=== PATIENT | female | born 1960 | race Caucasian/White ===

== ENCOUNTER 2017-04-18 21:43 | Inpatient (IN) | payer OTHER ==
[~2017-04-18] VITALS: Ht 157.5 cm; Wt 72.7 kg
[~2017-04-18 21:43] MED LIST: AMOX500C2 PO; ASPI325T32 PO; CALC-656 PO; CALC-80 PO; CYAN50003 PO; CYCL10TA9 PO; DOXY25SU3 PO; DOXY50CA PO; ERYT500T8 PO; ESTR1TAB14 PO; MULT-963 PO; [UNRECOGNIZED DRUG - REMARK]
--- OUTSIDE RECORDS SUMMARY | 2017-04-18 21:52 | XMS REPORT | Continuity of Care Document ---
Author Author [facility] Organization [facility] Address Unknown Phone Unavailable Allergies Active Description Code Type Severity Reaction Onset Reported/Identified Relationship to Patient Clinical Status Yes No Known Drug Allergies [id number] Drug Allergy Unknown N/A 08/06/2010 Medications There is no data. Problems Date Dx Coded Attending Type Code Diagnosis Diagnosed By 03/18/1058 AUDI GAY DO Ot M25.512 03/18/1444 AI BOOTH APRN Ot M25.512 08/06/2010 Ot 461.9 ACUTE SINUSITIS NOS 08/06/2010 Ot 784.0 HEADACHE 07/27/2011 Ot V16.0 FAMILY HX-GI MALIGNANCY 07/27/2011 Ot V76.51 SCREEN MAL NEOP-COLON 06/01/2013 YANI RODRIGUEZ, CHELITA R Ot 577.0 ACUTE PANCREATITIS 07/27/2013 YANI RODRIGUEZ, CHELITA R Ot 577.0 ACUTE PANCREATITIS 07/27/2013 YANI RODRIGUEZ, CHELITA R Ot 599.0 URIN TRACT INFECTION NOS 09/20/2013 GREG RODRIGUEZ FACMarisel, PANKAJ FACP CCDS Ot 577.0 ACUTE PANCREATITIS 03/05/2014 Ot 611.72 03/05/2014 Ot 733.90 03/05/2014 Ot V76.12 03/05/2014 Ot 610.0 03/05/2014 Ot 793.80 03/05/2014 Ot 610.0 03/05/2014 Ot V72.84 03/05/2014 Ot V76.12 03/05/2014 YANI RODRIGUEZ, CHELITA R Ot 577.0 03/05/2014 GREG RODRIGUEZ FACC, PANKAJ FACP CCDS Ot 577.0 03/05/2014 GREG RODRIGUEZ FACC, ALI FACP CCDS Ot 785.1 03/05/2014 JOHN BAKER DO Ot 793.89 03/05/2014 JOHN BAKER DO Ot V76.12 03/05/2014 JOHN BAKER DO Ot 793.80 03/05/2014 Ot 577.0 03/05/2014 CHELITA LOMELI MD Ot 786.2 04/02/2014 CHELITA LOMELI MD R Ot 462 04/02/2014 CHELITA LOMELI MD R Ot 466.0 05/17/2014 CHELITA LOMELI MD Ot 719.41 12/08/2014 CHELITA LOMELI MD Ot 401.9 HYPERTENSION NOS 12/08/2014 CHELITA LOMELI MD R Ot 414.01 CORONARY ATHEROSCLEROSIS OF [place] CORON 12/08/2014 CHELITA LOMELI MD Ot 427.31 ATRIAL FIBRILLATION 12/08/2014 CHELITA LMOELI MD Ot V17.3 FAM HX-[place]HE[place] HEART DIS 01/02/2015 JUNIE GOVEA MD Ot 401.9 HYPERTENSION NOS 01/02/2015 JUNIE GOVEA MD Ot 414.00 CORON ATHEROSCLER NOS TYPE VESSEL, NATIV 01/02/2015 JUNIE GOVEA MD Ot 427.31 ATRIAL FIBRILLATION 01/02/2015 JUNIE GOVEA MD Ot 785.1 PALPITATIONS 01/02/2015 JUNIE GOVEA MD Ot 786.50 CHEST PAIN NOS 01/02/2015 JUNIE GOVEA MD Ot I10 ESSENTIAL (PRIMARY) HYPERTENSION 01/02/2015 JUNIE GOVEA MD Ot I25.10 ATHSCL HEART DISEASE OF [place] CORONARY 01/02/2015 JUNIE GOVAE MD Ot I48.0 PAROXYSMAL ATRIAL FIBRILLATION 01/02/2015 JUNIE GOVEA MD Ot R00.2 PALPITATIONS 01/02/2015 JUNIE GOVEA MD Ot R07.9 CHEST PAIN, UNSPECIFIED 01/02/2015 JUNIE GOVEA MD Ot V58.69 OTH MED,LT,CURRENT USE 01/02/2015 JUNIE GOVEA MD Ot Z79.899 OTHER SENIOR LIVING (CURRENT) DRUG THERAPY 02/01/2015 Ot 611.72 02/01/2015 Ot 733.90 02/01/2015 Ot V76.12 02/01/2015 Ot 610.0 02/01/2015 Ot 793.80 02/01/2015 Ot 610.0 02/01/2015 Ot V72.84 02/01/2015 Ot V76.12 02/01/2015 YANI RODRIGUEZ, CHELITA R Ot 577.0 02/01/2015 GREG RODRIGUEZ FAC, ALI FACP CCDS Ot 577.0 02/01/2015 GREG RODRIGUEZ FAC, ALI FACP CCDS Ot 785.1 02/01/2015 BAKER DOJOHN Ot 793.89 02/01/2015 BAKER DOJOHN C Ot V76.12 02/01/2015 BAKER DOCHRITSOPHEA C Ot 793.80 02/01/2015 Ot 577.0 02/01/2015 YANI RODRIGUEZ, CHELITA R Ot 786.2 02/01/2015 YANI RODRIGUEZ, CHELITA R Ot 462 02/01/2015 YANI RODRIGUEZ, CHELITA R Ot 466.0 02/01/2015 YANI RODRIGUEZ, CHELITA R Ot 719.41 03/01/2015 DEIDRA DO, AUDI Rubio Ot M25.512 03/28/2015 DEIDRA DO, AUDI F Ot M25.512 PAIN IN LEFT SHOULDER 04/22/2015 DEIDRA DO, AUDI F Ot M25.512 04/26/2015 Ot 611.72 04/26/2015 Ot 733.90 04/26/2015 Ot V76.12 04/26/2015 Ot 610.0 04/26/2015 Ot 793.80 04/26/2015 Ot 610.0 04/26/2015 Ot V72.84 04/26/2015 Ot V76.12 04/26/2015 YANI RODRIGUEZ, CHELITA R Ot 577.0 04/26/2015 GREG RODRIGUEZ [facility], ALI FACP CCDS Ot 577.0 04/26/2015 GREG RODRIGUEZ [facility], ALI FACP CCDS Ot 785.1 04/26/2015 BAKER DOCHRISTOPHEA C Ot 793.89 04/26/2015 BAKER CHRISTOPHE CESPEDESA C Ot V76.12 04/26/2015 BAKER DOCHRISTOPHEA C Ot 793.80 04/26/2015 Ot 577.0 04/26/2015 YANI RODRIGUEZ, CHELITA R Ot 786.2 04/26/2015 YANI RODRIGUEZ, CHELITA R Ot 462 04/26/2015 YANI RODRIGUEZ, CHELITA R Ot 466.0 04/26/2015 YANI RODRIGUEZ, CHELITA R Ot 719.41 04/26/2015 DEIDRA AUDI CESPEDES Ot M25.512 06/21/2015 AI BOOTH APRN Ot M25.512 PAIN IN LEFT SHOULDER 07/24/2015 Ot 611.72 07/24/2015 Ot 733.90 07/24/2015 Ot V76.12 07/24/2015 Ot 610.0 07/24/2015 Ot 793.80 07/24/2015 Ot 610.0 07/24/2015 Ot V72.84 07/24/2015 Ot V76.12 07/24/2015 YANI RODRIGUEZ, CHELITA R Ot 577.0 07/24/2015 GREG RODRIGUEZ FAC, ALI FACP CCDS Ot 577.0 07/24/2015 GREG RODRIGUEZ FAC, ALI FACP CCDS Ot 785.1 07/24/2015 JOHN BAKER DO C Ot 793.89 07/24/2015 JOHN BAKRE DO C Ot V76.12 07/24/2015 BAKERCHRISTOPHE Turner DOA C Ot 793.80 07/24/2015 Ot 577.0 07/24/2015 YANI RODRIGUEZ, CHELITA R Ot 786.2 07/24/2015 YANI RODRIGUEZ, CHELITA R Ot 462 07/24/2015 YANI RODRIGUEZ, CHELITA R Ot 466.0 07/24/2015 YANI RODRIGUEZ, CHELITA R Ot 719.41 07/24/2015 DEIDRA DO, AUDI Rubio Ot M25.512 08/12/2015 Ot 611.72 LUMP OR MASS IN BREAST 08/12/2015 Ot 733.90 BONE CARTILAGE DIS NOS 08/12/2015 Ot V76.12 OTH SCREEN MAMMO-MALIGN NEOPLASM OF [place] 08/12/2015 Ot 610.0 SOLITARY CYST OF BREAST 08/12/2015 Ot 793.80 UNSPEC ABNORMAL MAMMOGRAM 08/12/2015 Ot 610.0 SOLITARY CYST OF BREAST 08/12/2015 Ot V72.84 EXAM PRE- OPERATIVE NOS 08/12/2015 Ot V76.12 OTH SCREEN MAMMO-MALIGN NEOPLASM OF [place] 08/12/2015 YANI RODRIGUEZ, CHELITA R Ot 577.0 ACUTE PANCREATITIS 08/12/2015 GREG RODRIGUEZ FAC, ALI FACP CCDS Ot 577.0 ACUTE PANCREATITIS 08/12/2015 GREG RODRIGUEZ FACC, ALI FACP CCDS Ot 785.1 PALPITATIONS 08/12/2015 BAKERJOHN Turner DO C Ot 793.89 OTH (ABN) FINDINGS ON RADIOLOGICAL EXAMI 08/12/2015 JOHN BAKER DO C Ot V76.12 OTH SCREEN MAMMO-MALIGN NEOPLASM OF [place] 08/12/2015 BAKER JOHN CESPEDES C Ot 793.80 UNSPEC ABNORMAL MAMMOGRAM 08/12/2015 Ot 577.0 ACUTE PANCREATITIS 08/12/2015 YANI RODRIGUEZ, CHELITA R Ot 786.2 COUGH 08/12/2015 YANI RODRIGUEZ, CHELITA R Ot 462 ACUTE PHARYNGITIS 08/12/2015 YANI RODRIGUEZ, CHELITA R Ot 466.0 ACUTE BRONCHITIS 08/12/2015 YANI RODRIGUEZ, CHELITA R Ot 719.41 JOINT PAIN-SHLDER 08/12/2015 DEIDRA DO, AUDI Rubio Ot M25.512 PAIN IN LEFT SHOULDER 12/02/2015 Ot 610.0 SOLITARY CYST OF BREAST 12/02/2015 Ot V72.84 EXAM PRE- OPERATIVE NOS 12/02/2015 Ot V76.12 OTH SCREEN MAMMO-MALIGN NEOPLASM OF [place] 12/02/2015 YANI RODRIGUEZ, CHELITA R Ot 577.0 ACUTE PANCREATITIS 12/02/2015 GREG RODRIGUEZ FACC, ALI FACP CCDS Ot 577.0 ACUTE PANCREATITIS 12/02/2015 GREG RODRIGUEZ FACC, ALI FACP CCDS Ot 785.1 PALPITATIONS 12/02/2015 JOHN BAKER DO C Ot 793.89 OTH (ABN) FINDINGS ON RADIOLOGICAL EXAMI 12/02/2015 JOHN BAKER DO C Ot V76.12 OTH SCREEN MAMMO-MALIGN NEOPLASM OF [place] 12/02/2015 BAKER DOJOHN C Ot 793.80 UNSPEC ABNORMAL MAMMOGRAM 12/02/2015 Ot 577.0 ACUTE PANCREATITIS 12/02/2015 YANI RODRIGUEZ, CHELITA R Ot 786.2 COUGH 12/02/2015 YANI RODRIGUEZ, CHELITA R Ot 462 ACUTE PHARYNGITIS 12/02/2015 AYNI RODRIGUEZ, CHELITA R Ot 466.0 ACUTE BRONCHITIS 12/02/2015 YANI RODRIGUEZ, CHELITA R Ot 719.41 JOINT PAIN-SHLDER 12/02/2015 AUDI GAY DO Ot M25.512 PAIN IN LEFT SHOULDER 12/03/2015 Ot 610.0 SOLITARY CYST OF BREAST 12/03/2015 Ot V72.84 EXAM PRE- OPERATIVE NOS 12/03/2015 Ot V76.12 OTH SCREEN MAMMO-MALIGN NEOPLASM OF [place] 12/03/2015 CHELITA LOMELI MD Ot 577.0 ACUTE PANCREATITIS 12/03/2015 GREG RODRIGUEZ FAC, ALI FACP CCDS Ot 577.0 ACUTE PANCREATITIS 12/03/2015 GREG RODRIGUEZ FACC, ALI FACP CCDS Ot 785.1 PALPITATIONS 12/03/2015 JOHN BAKER DO C Ot 793.89 OTH (ABN) FINDINGS ON RADIOLOGICAL EXAMI 12/03/2015 JOHN BAKER DO Ot V76.12 OTH SCREEN MAMMO-MALIGN NEOPLASM OF [place] 12/03/2015 JOHN BAKER DO Ot 793.80 UNSPEC ABNORMAL MAMMOGRAM 12/03/2015 Ot 577.0 ACUTE PANCREATITIS 12/03/2015 CHELITA LOMELI MD Ot 786.2 COUGH 12/03/2015 CHELITA LOMELI MD R Ot 462 ACUTE PHARYNGITIS 12/03/2015 CHELITA LOMELI MD Ot 466.0 ACUTE BRONCHITIS 12/03/2015 CHELITA LOMELI MD Ot 719.41 JOINT PAIN-LDER 12/03/2015 AUDI GAY DO Ot M25.512 PAIN IN LEFT SHOULDER Procedures Code Description Performed By Performed On 37.22 12/08/2014 88.53 12/08/2014 88.56 12/08/2014 Results There is no data. Encounters ACCT No. Visit Date/Time Discharge Status Pt. Type Provider Facility Loc./Unit Complaint [id number] 06/21/2015 14:09:00 06/21/2015 14:45:00 DIS Outpatient AI BOOTH APRN [facility] REHAB R SHOULDER PAIN; ADHESIVE CAPSULITIS;NECK PAIN;CERV [id number] 04/09/2015 10:18:00 04/09/2015 23:59:59 CLS Outpatient AUDI GAY DO [facility] RAD LT SHOULDER PAIN [id number] 03/28/2015 08:52:00 03/28/2015 10:59:00 DIS Outpatient DEIDRA CESPEDES AUDI Rubio [facility] REHAB L SHOULDER PAIN [id number] 01/02/2015 07:20:00 01/02/2015 08:47:00 DIS Outpatient JUNIE GOVEA MD [facility] CATH PALPITATIONS,AFIB [id number] 12/07/2014 21:45:00 12/08/2014 17:45:00 DIS Inpatient CHELITA LOMELI MD [facility] ICU NEW ONSET ATRIAL FIBRILLATION WITH RVR;CHEST PAIN; [id number] 05/01/2014 10:57:00 05/01/2014 23:59:59 CLS Outpatient CHELITA LOMELI MD [facility] RAD HX OF HOG W/ONSET OF PAIN [id number] 03/05/2014 14:28:00 03/05/2014 23:59:59 CLS Outpatient CHELITA LOMELI MD [facility] RAD THROAT PAIN,ACUTE BRONCHOLITIS [id number] 10/17/2013 10:27:00 10/17/2013 23:59:59 CLS Outpatient CHELITA LOMELI MD [facility] RAD PERSISTENT COUGH [id number] 07/10/2013 08:30:00 09/20/2013 00:01:00 DIS Outpatient PANKAJ GARZA MD, FACC, FACP CCDS [facility] CARD PALPITATIONS [id number] 08/01/2013 08:00:00 08/01/2013 23:59:59 CLS Outpatient JOHN BAKER DO [facility] RAD ABNORMAL MAMMO [id number] 07/21/2013 01:15:00 07/27/2013 09:55:00 DIS Inpatient CHELITA LOMELI MD [facility] 4TH PANCREATITIS [id number] 06/27/2013 15:05:00 06/27/2013 23:59:59 CLS Outpatient JOHN BAKER DO [facility] RAD SCREENING [id number] 06/20/2013 10:05:00 06/20/2013 23:59:59 CLS Outpatient PANKAJ GARZA MD, FACC, FACP CCDS [facility] LAB HEART PALPITATIONS,PANCREATITIS [id number] 06/13/2013 07:14:00 06/13/2013 23:59:59 CLS Outpatient CHELITA LOMELI MD [facility] RAD HX PANCREATITIS [id number] 05/26/2013 20:01:00 06/01/2013 09:20:00 DIS Inpatient CHELITA LOMELI MD [facility] 4TH ACUTE PANCREATITIS [id number] 03/05/2014 14:29:00 Document Registration [id number] 03/05/2014 14:28:00 Document Registration [id number] 03/05/2014 14:28:00 Document Registration [id number] 09/21/2013 08:00:00 Document Registration [id number] 06/08/2012 14:05:00 Document Registration [id number] 07/27/2011 07:54:00 Document Registration [id number] 07/23/2011 07:31:00 Document Registration [id number] 06/02/2011 14:45:00 Document Registration [id number] 08/06/2010 19:04:00 Document Registration [id number] 03/25/2010 12:57:00 Document Registration [id number] 03/11/2010 08:54:00 Document Registration
[2017-04-18] MEDS ORDERED: fentaNYL INJECTION 100 MCG/2 ML AMP IVP STA (22:56)
[2017-04-18] MEDS ORDERED: NS IV 1000 ML 1,000 ML IV ONE (22:56)
[2017-04-18] MEDS ORDERED: HYOSCYAMINE 0.125 MG (LEVSIN) TAB SL ONE (23:00)
[2017-04-18] MEDS ORDERED: ONDANSETRON 4 MG/2 ML (SDV) Z0FRAN IVP ONE (23:00)
[2017-04-18 23:03] LABS: BASOPHILS % (AUTO) 0 % (0-10); EOSINOPHILS % (AUTO) 0 % (0-10); HEMATOCRIT 44 % (35-52); HEMOGLOBIN 14.9 G/DL (11.5-16.0); LYMPHOCYTES # (AUTO) 0.3 X 10^3 (1.0-4.0); LYMPHOCYTES % (AUTO) 2 % (12-44); MEAN CORPUSCULAR HEMOGLOBIN 29 PG (25-34); MEAN CORPUSCULAR HGB CONC 34 G/DL (32-36); MEAN CORPUSCULAR VOLUME 86 FL (80-99); MEAN PLATELET VOLUME 10.1 FL (7.4-10.4); MONOCYTES # (AUTO) 0.3 X 10^3 (0.0-1.0); MONOCYTES % (AUTO) 2 % (0-12); NEUTROPHILS # (AUTO) 14.6 X 10^3 (1.8-7.8); NEUTROPHILS % (AUTO) 96 % (42-75); PLATELET COUNT 233 10^3/uL (130-400); RED BLOOD COUNT 5.12 10^6/uL (4.35-5.85); RED CELL DISTRIBUTION WIDTH 13.9 % (10.0-14.5); WHITE BLOOD COUNT 15.2 10^3/uL (4.3-11.0)
--- NOTE | 2017-04-18 23:08 | ED GI ---
General Chief Complaint: Abdominal/GI Problems Stated Complaint: STOMACH PAIN Nursing Triage Note: Pt c/o upper abd pain and n/v/d starting this evening. Sepsis Screen: No Definite Risk Source of Information: Patient Exam Limitations: No Limitations History of Present Illness Time Seen By Provider: 22:46 Initial Comments Here with report of nausea, vomiting and diarrhea that started about 430 or 5 o' clock this evening. Complains of upper abdominal pain and states is fairly significant. States she had this type of pain a couple years ago when she had her biliary stent blocked. Also complaining of moderate amount watery diarrhea. States has vomited and had diarrhea several times each. No report of blood in the vomit or stool. Reports fevers. Timing/Duration: 4-6 Hours Severity/Quality: Moderate, Severe, Aching, Cramping Location: Epigastric Radiation: No Radiation Activities at Onset: None Modifying Factors: Worsens With Eating, Worsens With Movement, Improves With Resting Associated Symptoms: No Back Pain, No Chest Pain, Fever/Chills, Nausea/Vomiting , No Shortness of Air, No Weakness Allergies and Home Medications Allergies Coded Allergies: No Known Drug Allergies (Unverified , 08/06/10) Home Medications Aspirin 325 Mg Tablet., 325 MG PO DAILY, #100 Ref 4 Prescribed by: JUNIE GOVEA on 12/08/14 1131 Calcium Carbonate/Vitamin D3 1 Each Tablet, 3 TAB PO DAILY, (Reported) Cyanocobalamin (Vitamin B-12) 5,000 Mcg Tab.rapdis, 5,000 MCG PO DAILY, ( Reported) Cyclobenzaprine Hcl 10 Mg Tablet, 10 MG PO DAILY, (Reported) Estrogen,Con/M-Progest Acet 1 Each Tablet, 1 TAB PO MON, WED, SAT, (Reported) Multivitamin 1 Each Tablet, 1 TAB PO DAILY, (Reported) Review of Systems Constitutional: see HPI, No chills, fever, weakness EENTM: No Symptoms Reported Respiratory: No Symptoms Reported Cardiovascular: No Symptoms Reported Gastrointestinal: See HPI, Abdominal Pain, Diarrhea, Nausea, Vomiting Genitourinary: No Symptoms Reported Musculoskeletal: no symptoms reported All Other Systems Reviewed Negative Unless Noted: Yes Past Evnogls-Fffwor-Sqvxfa Hx Patient Social History Alcohol Use: Denies Use Recreational Drug Use: No Smoking Status: Never a Smoker Recent Foreign Travel: No Contact w/Someone Who Travel: No Recent Infectious Disease Expo: No Recent Hopitalizations: No Immunizations Up To Date Tetanus Booster (TDap): Unknown PED Vaccines UTD: No Date of Influenza Vaccine: Jan 17, 2013 Seasonal Allergies Seasonal Allergies: No Surgeries History of Surgeries: Yes (PANCREATIC STENT, stent in bile duct) Surgeries: Section, Gallbladder, Tubal Ligation Respiratory History of Respiratory Disorde: No Cardiovascular History of Cardiac Disorders: Yes Cardiac Disorders: Atrial Fibrillation, Hypertension Neurological History of Neurological Disord: No Reproductive System Hx Reproductive Disorders: No MANAGER PORT History: Menopausal Genitourinary History of Genitourinary Disor: No Gastrointestinal History of Gastrointestinal Di: No Musculoskeletal History of Musculoskeletal Dis: No Endocrine History of Endocrine Disorders: No HEENT History of HEENT Disorders: No Cancer History of Cancer: No Psychosocial History of Psychiatric Problem: No Integumentary History of Skin or Integumenta: No Reviewed Nursing Assessment Reviewed/Agree w Nursing PMH: Yes Family Medical History Significant Family History: No Pertinent Family Hx Family Medial History: Cancer 03 MOTHER Family history: Diabetes mellitus 03 FATHER Physical Exam Vital Signs VS - Last 72 Hours, by Label 04/18/17 22:38 Temp 100.2 Pulse 82 Resp 18 B/P (MAP) 131/75 (93) Pulse Ox 100 O2 Delivery Room Air Capillary Refill : Less Than 3 Seconds General Appearance: WD/WN, no apparent distress HEENT: PERRL/EOMI, pharynx normal Neck: full range of motion, supple Respiratory: lungs clear, normal breath sounds Cardiovascular: regular rate, rhythm, no murmur Peripheral Pulses: 2+ Dorsalis Pedis (R), 2+ Left Dors-Pedis (L), 2+ Radial Pulses (R), 2+ Radial Pulses (L) Gastrointestinal: soft, No distended, No guarding, No rebound, tenderness ( epigastric) Extremities: non-tender, normal inspection Back: normal inspection, no CVA tenderness, no vertebral tenderness Neurologic/Psychiatric: alert, oriented x 3 Skin: normal color, warm/dry Focused Exam Evaluation Lactate Level Laboratory Tests 04/19/17 01:27: Lactic Acid Level 1.09 Lactic Acid Level Laboratory Tests Test 04/19/17 01:27 Lactic Acid Level 1.09 MMOL/L (0.50-2.00) Progress/Results/Core Measures Results/Orders Lab Results Laboratory Tests Test 04/18/17 01:00 04/18/17 22:56 04/19/17 01:27 Range/Units Urine Color YELLOW Urine Clarity CLEAR Urine pH 5 5-9 Urine Specific [place] 1.010 L 1.016-1.022 Urine Protein NEGATIVE NEGATIVE Urine Glucose (UA) NEGATIVE NEGATIVE Urine Ketones 3+ H NEGATIVE Urine Nitrite NEGATIVE NEGATIVE Urine Bilirubin NEGATIVE NEGATIVE Urine Urobilinogen NORMAL NORMAL MG/DL Urine Leukocyte Esterase 1+ H NEGATIVE Urine RBC (Auto) 1+ H NEGATIVE Urine RBC 0-2 /HPF Urine WBC NONE /HPF Urine Squamous Epithelial Cells 2-5 /HPF Urine Crystals NONE /LPF Urine Bacteria TRACE /HPF Urine Casts NONE /LPF Urine Mucus NEGATIVE /LPF Urine Culture Indicated NO White Blood Count 15.2 H 4.3-11.0 10^3/uL Red Blood Count 5.12 4.35-5.85 10^6/uL Hemoglobin 14.9 11.5-16.0 G/DL Hematocrit 44 35-52 % Mean Corpuscular Volume 86 80-99 FL Mean Corpuscular Hemoglobin 29 25-34 PG Mean Corpuscular Hemoglobin Concent 34 32-36 G/DL Red Cell Distribution Width 13.9 10.0-14.5 % Platelet Count 233 130-400 10^3/uL Mean Platelet Volume 10.1 7.4-10.4 FL Neutrophils (%) (Auto) 96 H 42-75 % Lymphocytes (%) (Auto) 2 L 12-44 % Monocytes (%) (Auto) 2 0-12 % Eosinophils (%) (Auto) 0 0-10 % Basophils (%) (Auto) 0 0-10 % Neutrophils # (Auto) 14.6 H 1.8-7.8 X 10^3 Lymphocytes # (Auto) 0.3 L 1.0-4.0 X 10^3 Monocytes # (Auto) 0.3 0.0-1.0 X 10^3 Eosinophils # (Auto) 0.0 0.0-0.3 10^3/uL Basophils # (Auto) 0.0 0.0-0.1 10^3/uL Neutrophils % (Manual) 92 % Lymphocytes % (Manual) 2 % Monocytes % (Manual) 0 % Eosinophils % (Manual) 0 % Basophils % (Manual) 0 % Band Neutrophils 6 % Blood Morphology Comment NORMAL Sodium Level 141 135-145 MMOL/L Potassium Level 4.5 3.6-5.0 MMOL/L Chloride Level 108 H 98-107 MMOL/L Carbon Dioxide Level 21 21-32 MMOL/L Anion Gap 12 5-14 MMOL/L Blood Urea Nitrogen 24 H 7-18 MG/DL Creatinine 0.88 0.60-1.30 MG/DL Estimat Glomerular Filtration Rate > 60 BUN/Creatinine Ratio 27 Glucose Level 128 H 70-105 MG/DL Calcium Level 9.0 8.5-10.1 MG/DL Total Bilirubin 1.0 0.1-1.0 MG/DL Aspartate Amino Transf (AST/SGOT) 127 H 5-34 U/L Alanine Aminotransferase (ALT/SGPT) 70 H 0-55 U/L Alkaline Phosphatase 63 40-136 U/L Total Protein 6.6 6.4-8.2 GM/DL Albumin 3.9 3.2-4.5 GM/DL Lipase 765 H 8-78 U/L Lactic Acid Level 1.09 0.50-2.00 MMOL/L My Orders Orders - GRACIE BAUGH MD Ns Iv 1000 Ml (Sodium Chloride 0.9%) (04/18/17 22:56) Fentanyl Injection (Sublimaze Injection (04/18/17 22:56) Ondansetron Injection (Zofran Injectio (04/18/17 23:00) Hyoscyamine Sl Tablet (Levsin Sl Tablet) (04/18/17 23:00) Ct Abdomen/Pelvis W (04/18/17 23:23) Lactic Acid Analyzer (04/19/17 01:10) Blood Culture (04/19/17 01:10) Fentanyl Injection (Sublimaze Injection (04/19/17 01:10) Ondansetron Injection (Zofran Injectio (04/19/17 01:15) Medications Given in ED Current Medications Medications Dose Ordered Sig/Juanito Route Start Time Stop Time Status Last Admin Dose Admin Hyoscyamine Sulfate 0.125 mg ONCE ONCE SL 04/18/17 23:00 04/18/17 23:01 DC 04/18/17 23:16 0.125 MG Ondansetron HCl 4 mg ONCE ONCE IVP 04/19/17 01:15 04/19/17 01:16 DC 04/19/17 01:24 4 MG Ondansetron HCl 4 mg ONCE ONCE IVP 04/18/17 23:00 04/18/17 23:01 DC 04/18/17 23:16 4 MG Sodium Chloride 1,000 ml @ 0 mls/hr Q0M ONCE IV 04/18/17 22:56 04/18/17 22:58 DC 04/18/17 23:16 999 MLS/HR Vital Signs/I&O Vital Sign - Last 12Hours 04/18/17 22:38 Temp 100.2 Pulse 82 Resp 18 B/P (MAP) 131/75 (93) Pulse Ox 100 O2 Delivery Room Air Blood Pressure Mean: 93 Progress Note : Progress Note Seen and evaluated. IV, labs, UA, normal saline 1 L bolus ordered. Zofran 4 mg IV and fentanyl 50 g IV ordered. Pepcid 20 mg by mouth 0100: Pain persist. UA pending. CT findings as below. Pain is persistent and patient has increased lipase consistent with pancreatitis. We will treat as such. Case discussed with Dr. Houser at 0105 and she accepts patient for admission, inpatient status. Requests surgical consult which will be placed in the morning. We will get blood cultures and lactic acidosis was mildly febrile earlier and does have elevated white count. Repeat fentanyl and Zofran ordered. Monitor patient 0205: I discussed the negative. I did discuss the case with Dr. Hayes. We will hold antibiotics at this point in reevaluate labs in the morning and decide from there. This may be viral etiology that has irritated the pancreas. There is still a possibility for bile duct blockage and labs will help determine. Admit, inpatient status. Patient and family agree with plan. Diagnostic Imaging Diagonstic Imaging: CT Plain Films/CT/US/NM/MRI: abdomen, pelvis Comments Postcholecystectomy with intrahepatic and extrahepatic ductal dilation interval worsening since prior study which may be secondary to interval removal of the common bile duct stent. This may just represent post cholecystectomy changes. No stones demonstrated within the ducts. Clinically correlate. Under distention versus wall thickening of the colon which may represent infectious versus inflammatory colitis. Air-fluid levels throughout small bowel without evidence of distinct transition point. This may represent infectious versus inflammatory enteritis. Diarrheal disease would be included in the differential. Partial small bowel obstruction be included in differential as the small bowel loops are mildly prominent although unlikely. Reviewed: Reviewed [place] Study, Reviewed by Me Departure Communication (Admissions) Time/Spoke to Admitting Phy: 01:09 Impression Impression: Primary Impression: Pancreatitis Disposition: 09 ADMITTED INPATIENT Condition: Stable Admissions Decision to Admit Reason: Admit from ER (General) Decision to Admit/Date: Apr 19, 2017 Time/Decision to Admit Time: 01:09 Departure-Patient Inst. Referrals: CHELITA LOMELI MD (PCP) Primary Care Physician GRACIE BAUGH MD Apr 18, 2017 23:08
[2017-04-18 23:17] LABS: BAND NEUTROPHILS 6 %; BASOPHILS % (MANUAL) 0 %; EOSINOPHILS % (MANUAL) 0 %; LYMPHOCYTES % (MANUAL) 2 %; MONOCYTES % (MANUAL) 0 %; NEUTROPHILS % (MANUAL) 92 %; RBC MORPH NORMAL
[2017-04-18 23:22] LABS: ALANINE AMINOTRANSFERASE 70 U/L (0-55); ALBUMIN 3.9 GM/DL (3.2-4.5); ALKALINE PHOSPHATASE 63 U/L (40-136); BUN/CREATININE RATIO 27; CARBON DIOXIDE 21 MMOL/L (21-32); CHLORIDE 108 MMOL/L (98-107); CREATININE SERUM 0.88 MG/DL (0.60-1.30); GFR ESTIMATED > 60; GLUCOSE 128 MG/DL (70-105); LIPASE 765 U/L (8-78); POTASSIUM 4.5 MMOL/L (3.6-5.0); SODIUM 141 MMOL/L (135-145); TOTAL PROTEIN 6.6 GM/DL (6.4-8.2)
[2017-04-19] MEDS ORDERED: fentaNYL INJECTION 100 MCG/2 ML AMP IVP STA (01:10)
[2017-04-19] MEDS ORDERED: ONDANSETRON 4 MG/2 ML (SDV) Z0FRAN IVP ONE (01:15)
[2017-04-19 01:18] LABS: BILIRUBIN,URINE NEGATIVE (NEGATIVE); CLARITY,URINE CLEAR; COLOR,URINE YELLOW; GLUCOSE, URINE (UA) NEGATIVE (NEGATIVE); KETONES,URINE 3+ (NEGATIVE); LEUKOCYTE ESTERASE ,URINE 1+ (NEGATIVE); NITRITE,URINE NEGATIVE (NEGATIVE); PH,URINE 5 (5-9); PROTEIN,URINE NEGATIVE (NEGATIVE); UROBILINOGEN,URINE NORMAL (NORMAL)
[2017-04-19 01:28] LABS: BACTERIA,URINE TRACE /HPF; RBC,URINE 0-2 /HPF
--- OUTSIDE RECORDS SUMMARY | 2017-04-19 02:24 | XMS REPORT | Continuity of Care Document ---
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 12/08/2014 CHELITA LOMELI MD Ot 427.31 ATRIAL FIBRILLATION 12/08/2014 CHELITA LOMELI MD Ot V17.3 FAM HX-ISCHEM HEART DIS [...] MD Ot I25.10 ATHSCL HEART DISEASE OF [place] CORONARY 01/02/2015 JUNIE GOVEA MD Ot I48.0 PAROXYSMAL ATRIAL FIBRILLATION 01/02/2015 JUNIE GOVEA MD Ot R00.2 PALPITATIONS 01/02/2015 JUNIE GOVEA MD Ot R07.9 CHEST PAIN, UNSPECIFIED 01/02/2015 JUNIE GOVEA MD Ot V58.69 OTH MED,LT,CURRENT USE 01/02/2015 JUNIE GOVEA MD Ot Z79.899 OTHER RESIDENTIAL (CURRENT) DRUG THERAPY 02/01/2015 Ot 611.72 02/01/2015 [...] BAKER DOJOHN C Ot V76.12 02/01/2015 BAKER DOCHRISTOPHEA C Ot 793.80 02/01/2015 Ot 577.0 02/01/2015 [...] CHELITA R Ot 577.0 04/26/2015 GREG RODRIGUEZ [facility], ALI FACP CCDS Ot 577.0 04/26/2015 GREG RODRIGUEZ [facility], ALI FACP CCDS Ot 785.1 04/26/2015 [...] BAKER DO C Ot 793.89 07/24/2015 JOHN BAKER DO C Ot V76.12 07/24/2015 BAKERCHRISTOPHE [place] [...] CHELITA R Ot 462 ACUTE PHARYNGITIS 08/12/2015 YNAI RODRIGUEZ, CHELITA R Ot 466.0 ACUTE BRONCHITIS [...] CHELITA R Ot 462 ACUTE PHARYNGITIS 12/02/2015 YANI RODRIGUEZ, CHELITA R Ot 466.0 ACUTE [...] ALI FACP CCDS Ot 785.1 PALPITATIONS 12/03/2015 CHRISTOPHE BAKER DOA C Ot 793.89 OTH (ABN) FINDINGS ON RADIOLOGICAL EXAMI 12/03/2015 JOHN BAKER DO Ot V76.12 OTH SCREEN MAMMO-MALIGN NEOPLASM OF [place] 12/03/2015 JOHN BAKER DO C Ot 793.80 UNSPEC ABNORMAL MAMMOGRAM 12/03/2015 Ot 577.0 ACUTE PANCREATITIS 12/03/2015 CHELITA LOMELI MD Ot 786.2 COUGH 12/03/2015 CHELITA LOMELI MD Ot 462 ACUTE PHARYNGITIS 12/03/2015 CHELITA LOMELI MD Ot 466.0 ACUTE BRONCHITIS 12/03/2015 CHELITA LOMELI MD Ot 719.41 JOINT PAIN-LDER 12/03/2015 AUDI GAY DO Ot M25.512 PAIN IN LEFT SHOULDER Procedures Code Description Performed By Performed On 37.22 12/08/2014 88.53 12/08/2014 88.56 12/08/2014 Results Test Result Range Complete urinalysis with reflex to culture - 04/18/17 01:00 Urine color determination YELLOW NRG Urine clarity determination CLEAR NRG Urine pH measurement by test strip 5 5-9 Specific gravity of urine by test strip 1.010 1.016- 1.022 Urine protein assay by test strip, semi-quantitative NEGATIVE NEGATIVE Urine glucose detection by automated test strip NEGATIVE NEGATIVE Erythrocytes detection in urine sediment by light microscopy 1+ NEGATIVE Urine ketones detection by automated test strip 3+ NEGATIVE Urine nitrite detection by test strip NEGATIVE NEGATIVE Urine total bilirubin detection by test strip NEGATIVE NEGATIVE Urine urobilinogen measurement by automated test strip (mass/volume) NORMAL NORMAL Urine leukocyte esterase detection by dipstick 1+ NEGATIVE Automated urine sediment erythrocyte count by microscopy (number/high power field) [HPF] NRG Automated urine sediment leukocyte count by microscopy (number/high power field ) NONE NRG Bacteria detection in urine sediment by light microscopy TRACE NRG Squamous epithelial cells detection in urine sediment by light microscopy 2-5 NRG Crystals detection in urine sediment by light microscopy NONE NRG Casts detection in urine sediment by light microscopy NONE NRG Mucus detection in urine sediment by light microscopy NEGATIVE NRG Complete urinalysis with reflex to culture NO NRG Complete blood count (CBC) with automated white blood cell (WBC) differential - 04/18/17 22:56 Blood leukocytes automated count (number/volume) 15.2 10*3/uL 4.3-11.0 Blood erythrocytes automated count (number/volume) 5.12 10*6/uL 4.35-5.85 Venous blood hemoglobin measurement (mass/volume) 14.9 g/dL 11.5-16.0 Blood hematocrit (volume fraction) 44 % 35-52 Automated erythrocyte mean corpuscular volume 86 [foz_us] 80-99 Automated erythrocyte mean corpuscular hemoglobin (mass per erythrocyte) 29 pg 25-34 Automated erythrocyte mean corpuscular hemoglobin concentration measurement ( mass/volume) 34 g/dL 32-36 Automated erythrocyte distribution width ratio 13.9 % 10.0-14.5 Automated blood platelet count (count/volume) 233 10*3/uL 130-400 Automated blood platelet mean volume measurement 10.1 [foz_us] 7.4-10.4 Automated blood neutrophils/100 leukocytes 96 % 42-75 Automated blood lymphocytes/100 leukocytes 2 % 12-44 Blood monocytes/100 leukocytes 2 % 0-12 Automated blood eosinophils/100 leukocytes 0 % 0-10 Automated blood basophils/100 leukocytes 0 % 0-10 Blood neutrophils automated count (number/volume) 14.6 10*3 1.8-7.8 Blood lymphocytes automated count (number/volume) 0.3 10*3 1.0-4.0 Blood monocytes automated count (number/volume) 0.3 10*3 0.0-1.0 Automated eosinophil count 0.0 10*3/uL 0.0-0.3 Automated blood basophil count (count/volume) 0.0 10*3/uL 0.0-0.1 Blood manual differential performed detection - 04/18/17 22:56 Blood monocytes/100 leukocytes 0 % NRG Manual blood segmented neutrophils/100 leukocytes 92 % NRG Blood band neutrophils/100 leukocytes 6 % NRG Manual blood lymphocytes/100 leukocytes 2 % NRG Manual eosinophils/100 leukocytes in nose 0 % NRG Manual blood basophils/100 leukocytes 0 % NRG Blood erythrocyte morphology finding identification NORMAL NRG Comprehensive metabolic panel - 04/18/17 22:56 Serum or plasma sodium measurement (moles/volume) 141 mmol/L 135-145 Serum or plasma potassium measurement (moles/volume) 4.5 mmol/L 3.6-5.0 Serum or plasma chloride measurement (moles/volume) 108 mmol/L 98-107 Carbon dioxide 21 mmol/L 21-32 Serum or plasma anion gap determination (moles/volume) 12 mmol/L 5-14 Serum or plasma urea nitrogen measurement (mass/volume) 24 mg/dL 7-18 Serum or plasma creatinine measurement (mass/volume) 0.88 mg/dL 0.60-1.30 Serum or plasma urea nitrogen/creatinine mass ratio 27 NRG Serum or plasma creatinine measurement with calculation of estimated glomerular filtration rate > NRG Serum or plasma glucose measurement (mass/volume) 128 mg/dL 70-105 Serum or plasma calcium measurement (mass/volume) 9.0 mg/dL 8.5-10.1 Serum or plasma total bilirubin measurement (mass/volume) 1.0 mg/dL 0.1-1.0 Serum or plasma alkaline phosphatase measurement (enzymatic activity/volume) 63 U/L 40-136 Serum or plasma aspartate aminotransferase measurement (enzymatic activity/ volume) 127 U/L 5-34 Serum or plasma alanine aminotransferase measurement (enzymatic activity/volume ) 70 U/L 0-55 Serum or plasma protein measurement (mass/volume) 6.6 g/dL 6.4-8.2 Serum or plasma albumin measurement (mass/volume) 3.9 g/dL 3.2-4.5 Lipase - 04/18/17 22:56 Lipase 765 U/L 8-78 Blood lactic acid measurement (moles/volume) - 04/19/17 01:27 Blood lactic acid measurement (moles/volume) 1.09 mmol/L 0.50-2.00 Encounters ACCT No. Visit Date/Time Discharge Status Pt. Type Provider Facility Loc./Unit Complaint [id number] 06/21/2015 14:09:00 06/21/2015 14:45:00 DIS Outpatient EMMY, AI Esther WOOD [facility] REHAB R SHOULDER PAIN; ADHESIVE CAPSULITIS;NECK PAIN;CERV [id number] 04/09/2015 10:18:00 04/09/2015 23:59:59 CLS Outpatient DEIDRA CESPEDES AUDI Rubio [facility] RAD LT SHOULDER PAIN [id number] 03/28/2015 08:52:00 03/28/2015 10:59:00 DIS Outpatient DEIDRA CESPEDES AUDI Rubio [facility] REHAB L SHOULDER PAIN [id number] 01/02/2015 07:20:00 01/02/2015 08:47:00 DIS Outpatient JUINE GOVEA MD [facility] CATH PALPITATIONS,AFIB [id number] 12/07/2014 21:45:00 12/08/2014 17:45:00 DIS Inpatient CHELITA LOMELI MD [facility] ICU NEW ONSET ATRIAL FIBRILLATION WITH RVR;CHEST PAIN; [id number] 05/01/2014 10:57:00 05/01/2014 23:59:59 CLS Outpatient CHELITA LOMELI MD [facility] RAD HX OF HOG W/ONSET OF PAIN [id number] 03/05/2014 14:28:00 03/05/2014 23:59:59 CLS Outpatient CHELITA LOMELI MD [facility] RAD THROAT PAIN,ACUTE BRONCHOLITIS [id number] 10/17/2013 10:27:00 10/17/2013 23:59:59 CLS Outpatient CHELITA LOMELI MD [facility] RAD PERSISTENT COUGH [id number] 07/10/2013 08:30:00 09/20/2013 00:01:00 DIS Outpatient GREG MEDINACPANKAJ FACP CCDS [facility] CARD PALPITATIONS [id number] 08/01/2013 08:00:00 08/01/2013 23:59:59 CLS Outpatient JOHN BAKER DO [facility] RAD ABNORMAL MAMMO [id number] 07/21/2013 01:15:00 07/27/2013 09:55:00 DIS Inpatient YANI RODRIGUEZ, CHELITA R [facility] 4TH PANCREATITIS [id number] 06/27/2013 15:05:00 06/27/2013 23:59:59 CLS Outpatient JOHN BAKER DO [facility] RAD SCREENING [id number] 06/20/2013 10:05:00 06/20/2013 23:59:59 CLS Outpatient GREG RODRIGUEZ FACC, PANKAJ REYES CCDS [facility] LAB HEART PALPITATIONS,PANCREATITIS [id number] 06/13/2013 07:14:00 06/13/2013 23:59:59 CLS Outpatient CHELITA LOMELI MD [facility] RAD HX PANCREATITIS [id number] 05/26/2013 20:01:00 06/01/2013 09:20:00 DIS Inpatient CHELITA LOMELI MD R [facility] 4TH ACUTE PANCREATITIS [id number] 04/18/2017 23:04:00 Document Registration [id number] 03/05/2014 14:29:00 Document Registration [id number] 03/05/2014 14:28:00 Document Registration [id number] 03/05/2014 14:28:00 Document Registration [id number] 09/21/2013 08:00:00 Document Registration [id number] 06/08/2012 14:05:00 Document Registration [id number] 07/27/2011 07:54:00 Document Registration [id number] 07/23/2011 07:31:00 Document Registration [id number] 06/02/2011 14:45:00 Document Registration [id number] 08/06/2010 19:04:00 Document Registration [id number] 03/25/2010 12:57:00 Document Registration [id number] 03/11/2010 08:54:00 Document Registration
[2017-04-19] MEDS: fentaNYL INJECTION 100 MCG/2 ML AMP IV PRN ×5 (03:24→20:05)
[2017-04-19] MEDS: NS IV 1000 ML 1,000 ML IV SCH ×4 (03:24→20:06)
[2017-04-19] MEDS ORDERED: RT-ALBUTEROL SULF 2.5 MG/3 ML PRE-MIX VIAL INH PRN (03:45)
[2017-04-19 04:00] VITALS: BP 107/55
[2017-04-19] MEDS: ONDANSETRON 4 MG/2 ML (SDV) Z0FRAN IV PRN ×2 (05:25→21:33)
[2017-04-19 06:08] LABS: BASOPHILS % (AUTO) 0 % (0-10); EOSINOPHILS % (AUTO) 0 % (0-10); HEMATOCRIT 39 % (35-52); HEMOGLOBIN 13.3 G/DL (11.5-16.0); LYMPHOCYTES # (AUTO) 0.2 X 10^3 (1.0-4.0); LYMPHOCYTES % (AUTO) 2 % (12-44); MEAN CORPUSCULAR HEMOGLOBIN 29 PG (25-34); MEAN CORPUSCULAR HGB CONC 34 G/DL (32-36); MEAN CORPUSCULAR VOLUME 86 FL (80-99); MEAN PLATELET VOLUME 10.4 FL (7.4-10.4); MONOCYTES # (AUTO) 0.2 X 10^3 (0.0-1.0); MONOCYTES % (AUTO) 2 % (0-12); NEUTROPHILS % (AUTO) 96 % (42-75); PLATELET COUNT 213 10^3/uL (130-400); RED BLOOD COUNT 4.56 10^6/uL (4.35-5.85); RED CELL DISTRIBUTION WIDTH 13.8 % (10.0-14.5); WHITE BLOOD COUNT 9.4 10^3/uL (4.3-11.0)
[2017-04-19 06:31] LABS: ALANINE AMINOTRANSFERASE 211 U/L (0-55); ALBUMIN 3.4 GM/DL (3.2-4.5); ALKALINE PHOSPHATASE 68 U/L (40-136); BILIRUBIN,TOTAL 0.6 MG/DL (0.1-1.0); BUN/CREATININE RATIO 25; CALCIUM 8.1 MG/DL (8.5-10.1); CARBON DIOXIDE 20 MMOL/L (21-32); CHLORIDE 111 MMOL/L (98-107); CREATININE SERUM 0.79 MG/DL (0.60-1.30); GFR ESTIMATED > 60; GLUCOSE 124 MG/DL (70-105); LIPASE 271 U/L (8-78); POTASSIUM 3.9 MMOL/L (3.6-5.0); SODIUM 142 MMOL/L (135-145); TOTAL PROTEIN 5.5 GM/DL (6.4-8.2)
--- NOTE | 2017-04-19 07:54 | Diagnostic Imaging Report ---
PROCEDURE: CT abdomen and pelvis with contrast. TECHNIQUE: Multiple contiguous axial images were obtained through the abdomen and pelvis after administration of intravenous contrast. INDICATION: Abdominal pain Exam compared to 07/21/2013. There has been interval removal of internal biliary stent associated with progressive intra-and extrahepatic ductal dilatation. No appreciable radiodense intraductal stone is found. The pancreas unremarkable. No evidence for a liver mass. The nonfocal spleen normal in size. The adrenals and pancreas unremarkable. Air-containing appendix visualized and normal. There is fluid within the lumen of the small bowel without caliber transition zone. The small bowel minimally distended. Scattered air-fluid levels. Pattern raises the question of an enteritis. No substantial perienteric edema. No bowel wall thickening, pneumatosis or free air. Uterus, adnexa and urinary bladder unremarkable. There is lack of distention of the colon but no convincing evidence for focal colonic wall thickening or pericolonic edema. IMPRESSION: 1. Progressive biliary dilatation status post stent removal. No radiodense stone visualized, correlate clinically for features of biliary obstruction. Nonfocal negative pancreas. 2. Fluid within small bowel lumen. Scattered air-fluid levels, borderline distention but no transition zone. Findings raise the question of inflammatory or infectious enteritis, correlate clinically. The undistended colon is difficult to evaluate owing to the lack of luminal distention but no findings felt particularly suggestive of a colitis are found. 3. No abscess, perforation or ascites. Negative unobstructed urinary tracts. Dictated by: Dictated on workstation # [id number]
[2017-04-19 08:11] VITALS: BP 96/65
[2017-04-19] MEDS ORDERED: INFLUENZA TRIvalent 2017-2018 0.5 ML/45 MCG SYR IM ONE (08:15)
--- NOTE | 2017-04-19 09:07 | Consultation ---
History of Present Illness History of Present Illness Patient Consulted On(hipolito/time) 04/19/17 08:59 Date Seen by Provider: Apr 19, 2017 Time Seen by Provider: 08:59 History of Present Illness consult requested by Dr. Houser for pancreatitis. Patient is a 57 year old female who began having nausea vomiting and diarrhea yesterday afternoon around 4-5 pm. She has nausea which has persisted and a few episode of emesis. She also notes diarrhea at that time as well. She was having abdominal pain in the epigastric region which did not radiate. Movement and food made the pain worse. It was an aching/cramping type pain. Holding still makes better. She states the pain is similar to when she had to have biliary stents placed. She denies any hematemesis or blood in the stools. She had a ct scan performed which shows some dilatation of the intrahepatic and extrehepatic ducts no significant change of the pancreas and bowel loops consistent with enteritis. Her liver enzymes are elevated and lipase has come down with bilirubin normal. WBC is normal on repeat blood draw. Allergies and Home Medications Allergies Coded Allergies: No Known Drug Allergies (Unverified , 08/06/10) Home Medications Aspirin 325 Mg Tablet., 325 MG PO DAILY, #100 Ref 4 Prescribed by: JUNIE GOVEA on 12/08/14 1131 Calcium Carbonate/Vitamin D3 1 Each Tablet, 3 TAB PO DAILY, (Reported) Cyanocobalamin (Vitamin B-12) 5,000 Mcg Tab.rapdis, 5,000 MCG PO DAILY, ( Reported) Cyclobenzaprine Hcl 10 Mg Tablet, 10 MG PO DAILY, (Reported) Estrogen,Con/M-Progest Acet 1 Each Tablet, 1 TAB PO MON, WED, SAT, (Reported) Multivitamin 1 Each Tablet, 1 TAB PO DAILY, (Reported) Past Levspmr-Cficll-Nddwpu Hx Patient Social History Alcohol Use: Past History Number of Drinks Today: 0 Recreational Drug Use: No Smoking Status: Never a Smoker Recent Foreign Travel: No Contact w/Someone Who Travel: No Recent Infectious Disease Expo: No Recent Hopitalizations: No Physical Abuse Screen: No Sexual Abuse: No Immunizations Up To Date Tetanus Booster (TDap): Unknown PED Vaccines UTD: No Date of Influenza Vaccine: Apr 19, 2017 Seasonal Allergies Seasonal Allergies: No Surgeries History of Surgeries: Yes Surgeries: Section, Gallbladder, Tubal Ligation Respiratory History of Respiratory Disorde: No Cardiovascular History of Cardiac Disorders: Yes Cardiac Disorders: Atrial Fibrillation, Hypertension Neurological History of Neurological Disord: No Reproductive System Hx Reproductive Disorders: 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 Genitourinary History of Genitourinary Disor: No Gastrointestinal History of Gastrointestinal Di: Yes Gastrointestinal Disorders: Pancreatitis Musculoskeletal History of Musculoskeletal Dis: No Endocrine History of Endocrine Disorders: No HEENT History of HEENT Disorders: No Cancer History of Cancer: No Psychosocial History of Psychiatric Problem: No Integumentary History of Skin or Integumenta: No Blood Transfusions History of Blood Disorders: No Adverse Reaction to a Blood Tr: No Reviewed Nursing Assessment Reviewed/Agree w Nursing PMH: Yes Family Medical History Significant Family History: No Pertinent Family Hx Family Medial History: Cancer 03 MOTHER Family history: Diabetes mellitus 03 FATHER Review of Systems-General Constitutional: see HPI EENTM: no symptoms reported Respiratory: no symptoms reported Cardiovascular: no symptoms reported Gastrointestinal: see HPI Genitourinary: no symptoms reported Musculoskeletal: no symptoms reported Skin: no symptoms reported Psychiatric/Neurological: No Symptoms Reported Physical Exam-General Problems Physical Exam Vital Signs Vital Sign - Last 12Hours 04/18/17 22:38 Temp 100.2 Pulse 82 Resp 18 B/P (MAP) 131/75 (93) Pulse Ox 100 O2 Delivery Room Air Capillary Refill : Less Than 3 Seconds General Appearance: no apparent distress HEENT: PERRL/EOMI, normal ENT inspection Neck: full range of motion, supple Respiratory: no respiratory distress, no accessory muscle use Cardiovascular: regular rate, rhythm Gastrointestinal: soft, tenderness (mild in epigastric region) Rectal: deferred Back: normal inspection Extremities: non-tender, normal inspection Neurologic/Psychiatric: alert, normal mood/affect, oriented x 3 Skin: normal color, warm/dry Lymphatic: no adenopathy Data Review Labs Laboratory Tests 04/18/17 22:56: White Blood Count 15.2H, Red Blood Count 5.12, Hemoglobin 14.9, Hematocrit 44, Mean Corpuscular Volume 86, Mean Corpuscular Hemoglobin 29, Mean Corpuscular Hemoglobin Concent 34, Red Cell Distribution Width 13.9, Platelet Count 233, Mean Platelet Volume 10.1, Neutrophils (%) (Auto) 96H, Lymphocytes (%) (Auto) 2L , Monocytes (%) (Auto) 2, Eosinophils (%) (Auto) 0, Basophils (%) (Auto) 0, Neutrophils # (Auto) 14.6H, Lymphocytes # (Auto) 0.3L, Monocytes # (Auto) 0.3, Eosinophils # (Auto) 0.0, Basophils # (Auto) 0.0, Neutrophils % (Manual) 92, Lymphocytes % (Manual) 2, Monocytes % (Manual) 0, Eosinophils % (Manual) 0, Basophils % (Manual) 0, Band Neutrophils 6, Blood Morphology Comment NORMAL, Sodium Level 141, Potassium Level 4.5, Chloride Level 108H, Carbon Dioxide Level 21, Anion Gap 12, Blood Urea Nitrogen 24H, Creatinine 0.88, Estimat Glomerular Filtration Rate > 60, BUN/Creatinine Ratio 27, Glucose Level 128H, Calcium Level 9.0, Total Bilirubin 1.0, Aspartate Amino Transf (AST/SGOT) 127H, Alanine Aminotransferase (ALT/SGPT) 70H, Alkaline Phosphatase 63, Total Protein 6.6, Albumin 3.9, Lipase 765H 04/19/17 01:27: Lactic Acid Level 1.09 04/19/17 05:14: White Blood Count 9.4, Red Blood Count 4.56, Hemoglobin 13.3, Hematocrit 39, Mean Corpuscular Volume 86, Mean Corpuscular Hemoglobin 29, Mean Corpuscular Hemoglobin Concent 34, Red Cell Distribution Width 13.8, Platelet Count 213, Mean Platelet Volume 10.4, Neutrophils (%) (Auto) 96H, Lymphocytes (%) (Auto) 2L , Monocytes (%) (Auto) 2, Eosinophils (%) (Auto) 0, Basophils (%) (Auto) 0, Neutrophils # (Auto) 9.0H, Lymphocytes # (Auto) 0.2L, Monocytes # (Auto) 0.2, Eosinophils # (Auto) 0.0, Basophils # (Auto) 0.0, Sodium Level 142, Potassium Level 3.9, Chloride Level 111H, Carbon Dioxide Level 20L, Anion Gap 11, Blood Urea Nitrogen 20H, Creatinine 0.79, Estimat Glomerular Filtration Rate > 60, BUN /Creatinine Ratio 25, Glucose Level 124H, Calcium Level 8.1L, Total Bilirubin 0.6, Aspartate Amino Transf (AST/SGOT) 319H, Alanine Aminotransferase (ALT/SGPT ) 211H, Alkaline Phosphatase 68, Total Protein 5.5L, Albumin 3.4, Lipase 271H Assessment/Plan Assessment/Plan Assessment/Plan pancreatitis epigastric abdominal pain enteritis history of biliary stents Tolerating clears at this time. Will continue on clear liquids at this time. I feel main issues is the enteritis. She does have elevated lipase which is improving and some elevate liver enzymes but not elevated bilirubin. Continue to monitor labs and supportive care at this time. No surgical intervention Iv hydration Clinical Quality Measures DVT/VTE Risk/Contraindication: Risk Factor Score Per Nursin RFS Level Per Nursing on Admit: 2=Moderate IKER SMILEY DO Apr 19, 2017 09:07
[2017-04-19 11:43] VITALS: BP 98/60
--- NOTE | 2017-04-19 12:05 | History & Physical-Hospitalist ---
HPI History of Present Illness: HPI/Chief Complaint The patient is a 57-year-old white female severe epigastric pain of sudden onset. This closely resembleD her previous pancreatitis. She had gone to work although she had diarrhea. She did not eat because of the diarrhea. She had previously had a cholecystectomy many years ago because of stones. 2-3 years ago or slightly more she had an episode of pancreatitis and ultimately a stent, most likely by Dr. Vasques in [place]. That ultimately came out she has not had any problem. She is a lifelong non-alcohol drinker. She is perplexed as to why this occurred again. She was informed that it appeared nothing she had done precipitated this. Source: patient, family Exam Limitations: no limitations Date Seen 04/19/17 Time Seen by Provider: 11:59 Attending Physician Areli Houser Floyd R MD Referring Physician Date of Admission Apr 19, 2017 at 01:09 Home Medications & Allergies Home Medications Reviewed patient Home Medication Reconciliation Form Allergies Allergies Coded Allergies No Known Drug Allergies (Unverified08/06/10) Past [place]-Qhylvr-Ewsmcx Hx Patient Social History Alcohol Use: Past History Number of Drinks Today: 0 Recreational Drug Use: No Smoking Status: Never a Smoker Physical Abuse Screen: No Sexual Abuse: No Recent Foreign Travel: No Contact w/other who traveled: No Recent Hopitalizations: No Recent Infectious Disease Expo: No Immunizations Up To Date Tetanus Booster (TDap): Unknown Pediatric: No Date of Influenza Vaccine: Apr 19, 2017 Seasonal Allergies Seasonal Allergies: No Surgeries Yes Section, Gallbladder, Tubal Ligation Respiratory No Cardiovascular Yes Atrial Fibrillation, Hypertension Neurological No Reproductive System Hx Reproductive Disorders: No 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 Genitourinary No Gastrointestinal Yes Pancreatitis Musculoskeletal No Endocrine History of Endocrine Disorders: No HEENT History of HEENT Disorders: No Cancer No Psychosocial History of Psychiatric Problem: No Integumentary History of Skin or Integumenta: No Blood Transfusions History of Blood Disorders: No Adverse Reaction to a Blood Tr: No Reviewed Nursing Assessment Reviewed/Agree w Nursing PMH: Yes Family Medical History Significant Family History: No Pertinent Family Hx Family Hx: Cancer 03 MOTHER Family history: Diabetes mellitus 03 FATHER Review of Systems Constitutional: see HPI EENTM: no symptoms reported Respiratory: no symptoms reported Cardiovascular: no symptoms reported Gastrointestinal: see HPI, diarrhea, nausea, vomiting Genitourinary: no symptoms reported Musculoskeletal: no symptoms reported Skin: no symptoms reported Psychiatric/Neurological: No Symptoms Reported Physical Exam Physical Exam Vital Signs Vital Sign - Last 12Hours 04/18/17 22:38 Temp 100.2 Pulse 82 Resp 18 B/P (MAP) 131/75 (93) Pulse Ox 100 O2 Delivery Room Air Capillary Refill : Less Than 3 SecondsLess Than 3 Seconds General Appearance: Anxious, Mild Distress Eyes: Bilateral Eye Normal Inspection HEENT: Normal ENT Inspection Neck: Normal Inspection Respiratory: Chest Non Tender, Lungs Clear, Normal Breath Sounds, No Accessory Muscle Use, No Respiratory Distress Cardiovascular: Regular Rate, Rhythm, No Edema, No Gallop, No JVD, No Murmur, Normal Peripheral Pulses Gastrointestinal: Other (mild tenderness to palpation in the periumbilical area.) Back: Normal Inspection Extremity: Normal Capillary Refill, Normal Inspection, Normal Range of Motion, Non Tender, No Calf Tenderness, No Pedal Edema Neurologic/Psychiatric: Alert, Oriented x3, No Motor/Sensory Deficits, Normal Mood/Affect Skin: Normal Color, Warm/Dry Lymphatic: No Adenopathy Results Results/Procedures Lab Laboratory Tests 04/18/17 22:56 04/19/17 05:14 Assessment/Plan Admission Diagnosis Acute pancreatitis 2.previous history of apparent postcholecystectomy pancreatitis Assessment and Plan It is noted that the white blood count has declined from 15,000 229,400. The lipase is fallen from 765-71. The ALT has climbed from 70-211. The MAXIMUM TEMPERATURE was 100.2. Plan is to continue clear liquid diet. It is anticipated she will be ready for food tomorrow. She will ultimately need referral to gastroenterology for ERCP Clinical Quality Measures DVT/VTE Risk/Contraindication: Risk Factor Score Per Nursin RFS Level Per Nursing on Admit: 2=Moderate TEE CARBAJAL MD Apr 19, 2017 12:05
[2017-04-19 16:27] VITALS: BP 98/50
[2017-04-19] MEDS ORDERED: IBUPROFEN TABLET 200 MG TAB PO PRN (18:30)
[2017-04-19 20:01] VITALS: BP 108/58
[2017-04-20] VITALS: BP 107/67
[2017-04-20 04:00] VITALS: BP 105/55
[2017-04-20] MEDS: NS IV 1000 ML 1,000 ML IV SCH ×2 (04:43→12:29)
[2017-04-20] MEDS: fentaNYL INJECTION 100 MCG/2 ML AMP IV PRN ×3 (05:44→17:38)
[2017-04-20] MEDS: ONDANSETRON 4 MG/2 ML (SDV) Z0FRAN IV PRN ×2 (05:44→10:26)
[2017-04-20 06:16] LABS: HEMOGLOBIN 12.1 G/DL (11.5-16.0); MEAN PLATELET VOLUME 10.4 FL (7.4-10.4); RED BLOOD COUNT 4.11 10^6/uL (4.35-5.85); RED CELL DISTRIBUTION WIDTH 14.1 % (10.0-14.5)
[2017-04-20 06:45] LABS: ALANINE AMINOTRANSFERASE 284 U/L (0-55); ALBUMIN 2.8 GM/DL (3.2-4.5); ALKALINE PHOSPHATASE 89 U/L (40-136); BILIRUBIN,TOTAL 0.5 MG/DL (0.1-1.0); BUN/CREATININE RATIO 18; CALCIUM 7.5 MG/DL (8.5-10.1); CARBON DIOXIDE 21 MMOL/L (21-32); CHLORIDE 113 MMOL/L (98-107); CREATININE SERUM 0.76 MG/DL (0.60-1.30); GFR ESTIMATED > 60; GLUCOSE 86 MG/DL (70-105); LIPASE 52 U/L (8-78); POTASSIUM 3.4 MMOL/L (3.6-5.0); SODIUM 141 MMOL/L (135-145); TOTAL PROTEIN 4.5 GM/DL (6.4-8.2)
[2017-04-20 08:00] VITALS: BP 119/56
[2017-04-20] MEDS ORDERED: MULT-35 PO (10:59)
[2017-04-20] MEDS ORDERED: CALC600T12 PO (10:59)
[2017-04-20] MEDS ORDERED: CYAN50004 SL (10:59)
[2017-04-20] MEDS ORDERED: ASCO10006 PO (10:59)
[2017-04-20] MEDS ORDERED: ASPI325T32 PO (10:59)
[2017-04-20] MEDS ORDERED: METO-387 PO (11:00)
[2017-04-20] MEDS ORDERED: NSTR15C TP (11:04)
[2017-04-20] MEDS ORDERED: HYDR15CR36 TP (11:04)
[2017-04-20 12:00] VITALS: BP 158/72
[2017-04-20] MEDS ORDERED: PROMETHAZINE INJ 25 MG/ML (PHENERGAN) AMP IVP NR (12:00)
[2017-04-20] MEDS ORDERED: PROMETHAZINE INJ 25 MG/ML (PHENERGAN) AMP ONE (12:04)
--- NOTE | 2017-04-20 12:12 | Progress Note-Hospitalist ---
Standard Progress Note Progress Notes/Assess & Plan Date Seen 04/20/17 Time Seen by Provider: 11:40 Diagnosis Acute pancreatitis 2.previous history of apparent postcholecystectomy pancreatitis Assess & Plan/Chief Complaint The patient showed improvement in her laboratory with the white blood count dropping to 3000. The albumin dropped from 3.9-2.8. The lipase has gone down during the hospitalization from 765-52 which is in the normal range. The AST and ALT are flat at about 300 each. She reports that she is continuing to have pain and also vomiting and liquid diarrhea. She states that she estimates she had 4 watery stools in the last 24 hours. Zofran has not helped her nausea. Physical exam: The patient is tearful. Lungs are clear to auscultation. CV is regular without murmur. The abdomen is diffusely tender without guarding. Extremities show no edema. Impression: Continued pain/regression of acute pancreatitis. Plan I discussed with the patient and her that had been hoping that we can fever and discharge her today to see gastroenterology in [place] as an outpatient. This no longer appears to be a viable plan. I then called [facility] [employer] call and spoke to the traveling freight agent application integration specialist. He was most helpful and stated that this was a Dr. Vasques patient and although I have not been able to get a hold of him he would. He advised that the patient be sent for admission. This will require ambulance. I then spoke to the hospitalist who agreed to this plan. This was initiated at 1153. Labs Laboratory Tests 04/18/17 22:56 04/19/17 05:14 04/20/17 05:20 TEE CARBAJAL MD Apr 20, 2017 12:12
--- NOTE | 2017-04-20 14:22 | Progress Note ---
Subjective Date Seen by Provider: Apr 20, 2017 Time Seen by Provider: 14:15 Subjective/Events-last exam Patient still with epigastric abdominal pain, pain still moderate to severe. Patient also still with nausea and episodes of emesis. She also had liquid stools approximate for the last 24 hours. Patient not feeling any better. Patient states that she did have fever but this is seen to go down today. Patient white count down to 3 her AST and ALT are still elevated and her lipase is down to normal range. Patient does not have an elevated total bilirubin, but on CT scan showed dilated ducts. at bedside. Patient and states that they're being transferred to [place] for gastroenterology. Objective Exam Vital Signs Date Time Temp Pulse Resp B/P (MAP) Pulse Ox O2 Delivery O2 Flow Rate FiO2 04/20/17 11:00 97.7 04/20/17 10:26 97.7 04/20/17 08:00 97.7 68 16 119/56 (77) 98 Room Air 04/20/17 07:45 Room Air 04/20/17 06:44 97 Room Air 04/20/17 04:00 99.1 62 12 105/55 (72) 97 Room Air 04/20/17 00:00 98.6 64 16 107/67 (80) 97 Room Air 04/19/17 20:05 Room Air 04/19/17 20:01 100.3 81 20 108/58 (75) 97 Room Air 04/19/17 19:56 Room Air 04/19/17 16:27 97.9 69 16 98/50 (66) 96 Room Air I & O 04/20/17 07:00 Intake Total 4475 ml Balance 4475 ml Capillary Refill : Less Than 3 SecondsLess Than 3 Seconds General Appearance: Anxious, Mild Distress HEENT: Normal ENT Inspection Neck: Normal Inspection Respiratory: Chest Non Tender, Lungs Clear, Normal Breath Sounds, No Accessory Muscle Use, No Respiratory Distress Cardiovascular: Regular Rate, Rhythm, No Edema, No Gallop, No JVD, No Murmur, Normal Peripheral Pulses Peripheral Pulses: 2+ Dorsalis Pedis (R), 2+ Left Dors-Pedis (L), 2+ Radial Pulses (R), 2+ Radial Pulses (L) Gastrointestinal: soft, tenderness (mild in epigastric region) Extremity: Normal Capillary Refill, Normal Inspection, Normal Range of Motion, Non Tender, No Calf Tenderness, No Pedal Edema Neurologic/Psychiatric: Alert, Oriented x3, No Motor/Sensory Deficits, Normal Mood/Affect Skin: Normal Color, Warm/Dry Lymphatic: No Adenopathy Results Lab Laboratory Tests 04/20/17 05:20: White Blood Count 3.0L, Red Blood Count 4.11L, Hemoglobin 12.1, Hematocrit 36, Mean Corpuscular Volume 88, Mean Corpuscular Hemoglobin 29, Mean Corpuscular Hemoglobin Concent 34, Red Cell Distribution Width 14.1, Platelet Count 170, Mean Platelet Volume 10.4, Sodium Level 141, Potassium Level 3.4L, Chloride Level 113H, Carbon Dioxide Level 21, Anion Gap 7, Blood Urea Nitrogen 14, Creatinine 0.76, Estimat Glomerular Filtration Rate > 60, BUN/Creatinine Ratio 18, Glucose Level 86, Calcium Level 7.5L, Total Bilirubin 0.5, Aspartate Amino Transf (AST/SGOT) 292H, Alanine Aminotransferase (ALT/SGPT) 284H, Alkaline Phosphatase 89, Total Protein 4.5L, Albumin 2.8L, Lipase 52 Assessment/Plan Assessment/Plan Assessment/Plan pancreatitis epigastric abdominal pain enteritis history of biliary stents Patient with persistent epigastric abdominal pain nausea and vomiting and diarrhea. Patient AST and ALT have remained about the same. Her lipase has returned to normal. Her total bilirubin is normal. Patient her stated be transferred from Hospital this time, Dr. CARBAJAL has arranged already. Clinical Quality Measures DVT/VTE Risk/Contraindication: Risk Factor Score Per Nursin RFS Level Per Nursing on Admit: 2=Moderate IKER SMILEY DO Apr 20, 2017 14:22
[2017-04-20 16:00] VITALS: BP 148/80
[2017-04-20 18:15] VITALS: BP 148/80
== END 2017-04-20 18:15 | disposition short-term general hospital (02) | DRG 440 ==
LOC: EDUNIT# 21:43 → ER 21:47 → 4TH 04-19 01:09
PROVIDERS: ADMIT Internal Medicine; ATTEND Internal Medicine
DX: K85.90 Acute pancreatitis without necrosis or infection, unspecified (principal); K52.9 Noninfective gastroenteritis and colitis, unspecified; I48.91 Unspecified atrial fibrillation; I10 Essential (primary) hypertension; Z23 Encounter for immunization
CPT/HCPCS: 36415; 74177; 80053; 81000; 83605; 83690; 85007; 85025; 85027; 87040

== ENCOUNTER 2018-02-14 22:24 | Day surgery (SDC) | payer OTHER ==
[~2018-02-14] VITALS: Ht 157.5 cm; Wt 64.9 kg
[~2018-02-14 22:24] MED LIST changes: +ASCO10006 PO; +CALC600T12 PO; +CYAN50004 SL; +HYDR15CR36 TP; +METO-387 PO; +MULT-35 PO; +NSTR15C TP
--- OUTSIDE RECORDS SUMMARY | 2018-02-14 22:32 | XMS REPORT | Continuity of Care Document ---
Author Author [facility] Organization [facility] Address Unknown Phone Unavailable Allergies Active Description Code Type Severity Reaction Onset Reported/Identified Relationship to Patient Clinical Status Yes No Known Drug Allergies [id number] Drug Allergy Unknown N/A 08/06/2010 Medications There [...] MD R Ot 414.01 CORONARY ATHEROSCLEROSIS OF [place] CORON 12/08/2014 CHELITA LOMELI MD Ot 427.31 [...] MD Ot I25.10 ATHSCL HEART DISEASE OF [place] CORONARY 01/02/2015 JUNIE GOVEA MD Ot I48.0 [...] CHELITA R Ot 577.0 04/26/2015 GREG RODRIGUEZ [facility], ALI FACP CCDS Ot 577.0 04/26/2015 GREG RODRIGUEZ [facility], ALI FACP CCDS Ot 785.1 04/26/2015 BAKER [...] CHELITA R Ot 719.41 JOINT PAIN-SHLDER 12/02/2015 DEIDRA AUDI CESPEDES F Ot M25.512 PAIN IN LEFT SHOULDER 12/03/2015 Ot 610.0 SOLITARY CYST OF BREAST 12/03/2015 Ot V72.84 EXAM PRE- OPERATIVE NOS 12/03/2015 Ot V76.12 OTH SCREEN MAMMO-MALIGN NEOPLASM OF [place] 12/03/2015 CHELITA LOMELI MD R Ot 577.0 ACUTE PANCREATITIS 12/03/2015 GREG RODRIGUEZ FACC, ALI FACP CCDS Ot 577.0 ACUTE PANCREATITIS 12/03/2015 GREG RODRIGUEZ FACC, ALI FACP CCDS Ot 785.1 PALPITATIONS 12/03/2015 BAKER DO, JOHN C Ot 793.89 OTH (ABN) FINDINGS ON RADIOLOGICAL EXAMI 12/03/2015 BAKER DO JOHN C Ot V76.12 OTH SCREEN MAMMO-MALIGN NEOPLASM OF [place] 12/03/2015 BAKER DO, JOHN C Ot 793.80 UNSPEC ABNORMAL MAMMOGRAM 12/03/2015 Ot 577.0 ACUTE PANCREATITIS 12/03/2015 VEENA LOMELI MDYD R Ot 786.2 COUGH 12/03/2015 VEENA LOMELI MDYD R Ot 462 ACUTE PHARYNGITIS 12/03/2015 CHELITA LOMELI MD R Ot 466.0 ACUTE BRONCHITIS 12/03/2015 YANI RODRIGUEZ, CHELITA R Ot 719.41 JOINT PAIN-SHLDER 12/03/2015 AUDI GAY DO F Ot M25.512 PAIN IN LEFT SHOULDER 04/18/2017 Ot V76.12 OTH SCREEN MAMMO-MALIGN NEOPLASM OF [place] 04/18/2017 CHELITA LOMELI MD R Ot 577.0 ACUTE PANCREATITIS 04/18/2017 GREG RODRIGUEZ FAC, ALI FACP CCDS Ot 577.0 ACUTE PANCREATITIS 04/18/2017 GREG RODRIGUEZ FACC, ALI FACP CCDS Ot 785.1 PALPITATIONS 04/18/2017 BAKER DO, JOHN C Ot 793.89 OTH (ABN) FINDINGS ON RADIOLOGICAL EXAMI 04/18/2017 BAKER DO JOHN C Ot V76.12 OTH SCREEN MAMMO-MALIGN NEOPLASM OF [place] 04/18/2017 BAKER DO, JOHN C Ot 793.80 UNSPEC ABNORMAL MAMMOGRAM 04/18/2017 Ot 577.0 ACUTE PANCREATITIS 04/18/2017 YANI RODRIGUEZ, CHELITA R Ot 786.2 COUGH 04/18/2017 YANI RODRIGUEZ, CHELITA R Ot 462 ACUTE PHARYNGITIS 04/18/2017 YANI RODRIGUEZ, CHELITA R Ot 466.0 ACUTE BRONCHITIS 04/18/2017 CHELITA LOMELI MD R Ot 719.41 JOINT PAIN-SHLDER 04/18/2017 DEIDRA DO, AUDI Rubio Ot M25.512 PAIN IN LEFT SHOULDER 04/20/2017 RIVERA DO, NORI Ot I10 ESSENTIAL (PRIMARY) HYPERTENSION 04/20/2017 RIVERA DO, NORI Ot I48.91 UNSPECIFIED ATRIAL FIBRILLATION 04/20/2017 RIVERA DO, NORI Ot K52.9 NONINFECTIVE GASTROENTERITIS AND COLITIS 04/20/2017 MIGUEL DO, NORI Ot K85.90 ACUTE PANCREATITIS WITHOUT NECROSIS OR I 04/20/2017 MIGUEL CESPEDES NORI Ot Z23 ENCOUNTER FOR IMMUNIZATION 07/20/2017 Ot V76.12 OTH SCREEN MAMMO-MALIGN NEOPLASM OF [place] 07/20/2017 YANI RODRIGUEZ, CHELITA Quinteros Ot 577.0 ACUTE PANCREATITIS 07/20/2017 GREG RODRIGUEZ FACC, ALI FACP CCDS Ot 577.0 ACUTE PANCREATITIS 07/20/2017 GREG RODRIGUEZ FACC, ALI FACP CCDS Ot 785.1 PALPITATIONS 07/20/2017 JOHN BAKER DO Ot 793.89 OTH (ABN) FINDINGS ON RADIOLOGICAL EXAMI 07/20/2017 JOHN BAKER DO Ot V76.12 OTH SCREEN MAMMO-MALIGN NEOPLASM OF [place] 07/20/2017 JOHN BAKER DO Ot 793.80 UNSPEC ABNORMAL MAMMOGRAM 07/20/2017 Ot 577.0 ACUTE PANCREATITIS 07/20/2017 YANI RODRIGUEZ, CHELITA Quinteros Ot 786.2 COUGH 07/20/2017 CHELITA LOMELI MD Ot 462 ACUTE PHARYNGITIS 07/20/2017 CHELITA LOMELI MD Ot 466.0 ACUTE BRONCHITIS 07/20/2017 CHELITA LOMELI MD Ot 719.41 JOINT PAIN-SHLDER 07/20/2017 DEIDRA DOAUDI Ot M25.512 PAIN IN LEFT SHOULDER 08/09/2017 Ot V76.12 OTH SCREEN MAMMO-MALIGN NEOPLASM OF [place] 08/09/2017 CHELITA LOMELI MD R Ot 577.0 ACUTE PANCREATITIS 08/09/2017 GREG RODRIGUEZ FAC, ALI FACP CCDS Ot 577.0 ACUTE PANCREATITIS 08/09/2017 GREG RODRIGUEZ FAC, ALI FACP CCDS Ot 785.1 PALPITATIONS 08/09/2017 BAKER DO JOHN C Ot 793.89 OTH (ABN) FINDINGS ON RADIOLOGICAL EXAMI 08/09/2017 BAKERJohnny CESPEDES JOHN C Ot V76.12 OTH SCREEN MAMMO-MALIGN NEOPLASM OF [place] 08/09/2017 BAKER DO, JOHN C Ot 793.80 UNSPEC ABNORMAL MAMMOGRAM 08/09/2017 Ot 577.0 ACUTE PANCREATITIS 08/09/2017 CHELITA LOMELI MD R Ot 786.2 COUGH 08/09/2017 CHELITA LOMELI MD R Ot 462 ACUTE PHARYNGITIS 08/09/2017 CHELITA LOMELI MD R Ot 466.0 ACUTE BRONCHITIS 08/09/2017 CHELITA LOMELI MD R Ot 719.41 JOINT PAIN-SHLDER 08/09/2017 AUDI GAY DO Ot M25.512 PAIN IN LEFT SHOULDER Procedures Code Description Performed By Performed On 37.22 LEFT HEART CARDIAC CATH 12/08/2014 88.53 LT HEART ANGIOCARDIOGRAM 12/08/2014 88.56 CORONAR ARTERIOGR-2 CATH 12/08/2014 Results Test Result Range Complete urinalysis [...] Manual eosinophils/100 leukocytes in nose 0 % NR Manual blood basophils/100 leukocytes 0 % NR Blood erythrocyte morphology finding identification NORMAL NR Comprehensive metabolic panel - 04/18/17 22:56 Serum [...] lactic acid measurement (moles/volume) 1.09 mmol/L 0.50-2.00 Bacterial blood culture - 04/19/17 01:27 Bacterial blood culture NG [facility] Bacterial blood culture - 04/19/17 01:44 Bacterial blood culture NG [facility] Complete blood count (CBC) with automated white blood cell (WBC) differential - 04/19/17 05:14 Blood leukocytes automated count (number/volume) 9.4 10*3/uL 4.3-11.0 Blood erythrocytes automated count (number/volume) 4.56 10*6/uL 4.35-5.85 Venous blood hemoglobin measurement (mass/volume) 13.3 g/dL 11.5-16.0 Blood hematocrit (volume fraction) 39 % 35-52 Automated erythrocyte mean corpuscular volume 86 [foz_us] 80-99 Automated erythrocyte mean corpuscular hemoglobin (mass per erythrocyte) 29 pg 25-34 Automated erythrocyte mean corpuscular hemoglobin concentration measurement ( mass/volume) 34 g/dL 32-36 Automated erythrocyte distribution width ratio 13.8 % 10.0-14.5 Automated blood platelet count (count/volume) 213 10*3/uL 130-400 Automated blood platelet mean volume measurement 10.4 [foz_us] 7.4-10.4 Automated blood neutrophils/100 leukocytes 96 % 42-75 Automated blood lymphocytes/100 leukocytes 2 % 12-44 Blood monocytes/100 leukocytes 2 % 0-12 Automated blood eosinophils/100 leukocytes 0 % 0-10 Automated blood basophils/100 leukocytes 0 % 0-10 Blood neutrophils automated count (number/volume) 9.0 10*3 1.8-7.8 Blood lymphocytes automated count (number/volume) 0.2 10*3 1.0-4.0 Blood monocytes automated count (number/volume) 0.2 10*3 0.0-1.0 Automated eosinophil count 0.0 10*3/uL 0.0-0.3 Automated blood basophil count (count/volume) 0.0 10*3/uL 0.0-0.1 Comprehensive metabolic panel - 04/19/17 05:14 Serum or plasma sodium measurement (moles/volume) 142 mmol/L 135-145 Serum or plasma potassium measurement (moles/volume) 3.9 mmol/L 3.6-5.0 Serum or plasma chloride measurement (moles/volume) 111 mmol/L 98-107 Carbon dioxide 20 mmol/L 21-32 Serum or plasma anion gap determination (moles/volume) 11 mmol/L 5-14 Serum or plasma urea nitrogen measurement (mass/volume) 20 mg/dL 7-18 Serum or plasma creatinine measurement (mass/volume) 0.79 mg/dL 0.60-1.30 Serum or plasma urea nitrogen/creatinine mass ratio 25 NRG Serum or plasma creatinine measurement with calculation of estimated glomerular filtration rate > NRG Serum or plasma glucose measurement (mass/volume) 124 mg/dL 70-105 Serum or plasma calcium measurement (mass/volume) 8.1 mg/dL 8.5-10.1 Serum or plasma total bilirubin measurement (mass/volume) 0.6 mg/dL 0.1-1.0 Serum or plasma alkaline phosphatase measurement (enzymatic activity/volume) 68 U/L 40-136 Serum or plasma aspartate aminotransferase measurement (enzymatic activity/ volume) 319 U/L 5-34 Serum or plasma alanine aminotransferase measurement (enzymatic activity/volume ) 211 U/L 0-55 Serum or plasma protein measurement (mass/volume) 5.5 g/dL 6.4-8.2 Serum or plasma albumin measurement (mass/volume) 3.4 g/dL 3.2-4.5 Lipase - 04/19/17 05:14 Lipase 271 U/L 8-78 Automated blood complete blood count (hemogram) panel - 04/20/17 05:20 Blood leukocytes automated count (number/volume) 3.0 10*3/uL 4.3-11.0 Blood erythrocytes automated count (number/volume) 4.11 10*6/uL 4.35-5.85 Venous blood hemoglobin measurement (mass/volume) 12.1 g/dL 11.5-16.0 Blood hematocrit (volume fraction) 36 % 35-52 Automated erythrocyte mean corpuscular volume 88 [foz_us] 80-99 Automated erythrocyte mean corpuscular hemoglobin (mass per erythrocyte) 29 pg 25-34 Automated erythrocyte mean corpuscular hemoglobin concentration measurement ( mass/volume) 34 g/dL 32-36 Automated erythrocyte distribution width ratio 14.1 % 10.0-14.5 Automated blood platelet count (count/volume) 170 10*3/uL 130-400 Automated blood platelet mean volume measurement 10.4 [foz_us] 7.4-10.4 Comprehensive metabolic panel - 04/20/17 05:20 Serum or plasma sodium measurement (moles/volume) 141 mmol/L 135-145 Serum or plasma potassium measurement (moles/volume) 3.4 mmol/L 3.6-5.0 Serum or plasma chloride measurement (moles/volume) 113 mmol/L 98-107 Carbon dioxide 21 mmol/L 21-32 Serum or plasma anion gap determination (moles/volume) 7 mmol/L 5-14 Serum or plasma urea nitrogen measurement (mass/volume) 14 mg/dL 7-18 Serum or plasma creatinine measurement (mass/volume) 0.76 mg/dL 0.60-1.30 Serum or plasma urea nitrogen/creatinine mass ratio 18 NRG Serum or plasma creatinine measurement with calculation of estimated glomerular filtration rate > NRG Serum or plasma glucose measurement (mass/volume) 86 mg/dL 70-105 Serum or plasma calcium measurement (mass/volume) 7.5 mg/dL 8.5-10.1 Serum or plasma total bilirubin measurement (mass/volume) 0.5 mg/dL 0.1-1.0 Serum or plasma alkaline phosphatase measurement (enzymatic activity/volume) 89 U/L 40-136 Serum or plasma aspartate aminotransferase measurement (enzymatic activity/ volume) 292 U/L 5-34 Serum or plasma alanine aminotransferase measurement (enzymatic activity/volume ) 284 U/L 0-55 Serum or plasma protein measurement (mass/volume) 4.5 g/dL 6.4-8.2 Serum or plasma albumin measurement (mass/volume) 2.8 g/dL 3.2-4.5 Lipase - 04/20/17 05:20 Lipase 52 U/L 8-78 Encounters ACCT No. Visit Date/Time Discharge Status Pt. Type Provider Facility Loc./Unit Complaint [id number] 04/19/2017 01:09:00 04/20/2017 18:15:00 DIS Inpatient NORI RIVERA DO [facility] 4TH PANCREATITIS [id number] 06/21/2015 14:09:00 06/21/2015 14:45:00 DIS Outpatient AI BOOTH APRN [facility] REHAB R SHOULDER PAIN; ADHESIVE CAPSULITIS;NECK PAIN;CERV [id number] 04/09/2015 10:18:00 04/09/2015 23:59:59 CLS Outpatient AUDI GAY DO [facility] RAD LT SHOULDER PAIN [id number] 03/28/2015 08:52:00 03/28/2015 10:59:00 DIS Outpatient AUDI GAY DO [facility] REHAB L SHOULDER PAIN [id number] 01/02/2015 07:20:00 01/02/2015 08:47:00 DIS Outpatient XUAN RODRIGUEZ, JUNIE Lombardo [facility] CATH PALPITATIONS,AFIB [id number] 12/07/2014 21:45:00 12/08/2014 17:45:00 DIS Inpatient CHELITA LOMELI MD [facility] ICU NEW ONSET ATRIAL FIBRILLATION WITH RVR;CHEST PAIN; [id number] 05/01/2014 10:57:00 05/01/2014 23:59:59 CLS Outpatient CHELITA LOMELI MD [facility] RAD HX OF HOG W/ONSET OF PAIN [id number] 03/05/2014 14:28:00 03/05/2014 23:59:59 CLS Outpatient CHELITA LOMELI MD [facility] RAD THROAT PAIN,ACUTE BRONCHOLITIS [id number] 10/17/2013 10:27:00 10/17/2013 23:59:59 CLS Outpatient CHELITA LOMELI MD [facility] RAD PERSISTENT COUGH [id number] 07/10/2013 08:30:00 09/20/2013 00:01:00 DIS Outpatient PANKAJ GARZA MD, FACC, FACP CCDS [facility] CARD PALPITATIONS [id number] 08/01/2013 08:00:00 08/01/2013 23:59:59 CLS Outpatient JOHN BAKER DO [facility] RAD ABNORMAL MAMMO [id number] 07/21/2013 01:15:00 07/27/2013 09:55:00 DIS Inpatient CHELITA LOMELI MD [facility] 4TH PANCREATITIS [id number] 06/27/2013 15:05:00 06/27/2013 23:59:59 CLS Outpatient JOHN BAKER DO [facility] RAD SCREENING [id number] 06/20/2013 10:05:00 06/20/2013 23:59:59 CLS Outpatient PANKAJ GARZA MD, FACC, FACP CCDS [facility] LAB HEART PALPITATIONS,PANCREATITIS [id number] 06/13/2013 07:14:00 06/13/2013 23:59:59 CLS Outpatient CHELITA LOMELI MD [facility] RAD HX PANCREATITIS [id number] 05/26/2013 20:01:00 06/01/2013 09:20:00 DIS Inpatient YANI RODRIGUEZ, CHELITA Quinteros [facility] 4TH ACUTE PANCREATITIS [id number] 03/05/2014 14:29:00 Document Registration [id number] 03/05/2014 14:28:00 Document Registration [id number] 03/05/2014 14:28:00 Document Registration [id number] 09/21/2013 08:00:00 Document Registration [id number] 06/08/2012 14:05:00 Document Registration [id number] 07/27/2011 07:54:00 Document Registration [id number] 07/23/2011 07:31:00 Document Registration [id number] 06/02/2011 14:45:00 Document Registration [id number] 08/06/2010 19:04:00 Document Registration [id number] 03/25/2010 12:57:00 Document Registration [id number] 03/11/2010 08:54:00 Document Registration
[2018-02-14] MEDS ORDERED: NS IV 1000 ML 1,000 ML IV SCH (22:38)
[2018-02-14 22:44] LABS: BASOPHILS % (AUTO) 0 % (0-10); EOSINOPHILS # (AUTO) 0.3 10^3/uL (0.0-0.3); EOSINOPHILS % (AUTO) 4 % (0-10); HEMATOCRIT 43 % (35-52); HEMOGLOBIN 14.4 G/DL (11.5-16.0); LYMPHOCYTES # (AUTO) 2.3 X 10^3 (1.0-4.0); LYMPHOCYTES % (AUTO) 29 % (12-44); MEAN CORPUSCULAR HEMOGLOBIN 29 PG (25-34); MEAN CORPUSCULAR HGB CONC 33 G/DL (32-36); MEAN CORPUSCULAR VOLUME 88 FL (80-99); MEAN PLATELET VOLUME 9.7 FL (7.4-10.4); MONOCYTES # (AUTO) 0.8 X 10^3 (0.0-1.0); MONOCYTES % (AUTO) 10 % (0-12); NEUTROPHILS # (AUTO) 4.4 X 10^3 (1.8-7.8); NEUTROPHILS % (AUTO) 57 % (42-75); PLATELET COUNT 272 10^3/uL (130-400); RED BLOOD COUNT 4.95 10^6/uL (4.35-5.85); RED CELL DISTRIBUTION WIDTH 14.8 % (10.0-14.5); WHITE BLOOD COUNT 7.7 10^3/uL (4.3-11.0)
[2018-02-14] MEDS ORDERED: DILTIAZEM IV FOR DRIP 125 MG in NS (IVPB) 100 ML IV SCH (22:45)
[2018-02-14] MEDS ORDERED: DILTIAZEM 25 MG/5 ML INJ (CARDIZEM) VIAL IVP ONE (22:45)
[2018-02-14] MEDS ORDERED: ASPIRIN 81 MG CHEW (CHILDREN'S ASA) PO ONE (22:45)
--- NOTE | 2018-02-14 22:49 | ED Chest Pain ---
General Chief Complaint: Cardiac/General Problems Stated Complaint: AFIB Source: patient, spouse Exam Limitations: no limitations History of Present Illness Date Seen by Provider: Feb 14, 2018 Time Seen by Provider: 22:30 Initial Comments The patient presents to the ER by private conveyance with chief complaint of chest pain palpitations blood or started about 10:00 tonight 30 minutes prior to arrival. She does not have a history of coronary artery disease but she does have a history of atrial fibrillation and she feels her heart is racing. She was at a [employer] earlier tonight for her grandson a day and drank some Mountain Dew. She typically drinks a cup of coffee in the morning. She is on metoprolol 25 mg succinate but no blood thinners or aspirin or Plavix. She's had heart catheterizations done before. She is known to Dr. Murray and Dr. Israel respectively. The pain does not radiate and she's not having any nausea sweats, chills or fevers or cough. She has high blood pressure but no thyroid, hypercholesterolemia, diabetes. She denies smoking alcohol or drugs. Allergies and Home Medications Allergies Coded Allergies: No Known Drug Allergies (Unverified , 08/06/10) Home Medications Ascorbic Acid 1,000 Mg Tablet, 1,000 MG PO DAILY, (Reported) Aspirin 325 Mg Tablet.dr, 325 MG PO DAILY, (Reported) Calcium Carbonate 600 Mg Tablet, 1,200 MG PO DAILY, (Reported) Cyanocobalamin (Vitamin B-12) 5,000 Mcg Tab.subl, 5,000 MCG SL DAILY, (Reported) Hydrocortisone Valerate 15 Gm Cream..g., TP TWICE WEEKLY, (Reported) Metoprolol Succinate 25 Mg Tab.er.24h, 25 MG PO DAILY, (Reported) LAST FILLED #30 09-16-16 Multivitamin 1 Each Tablet, 1 TAB PO DAILY, (Reported) Nystatin/Triamcinolone 15 Gm Cr, TP TWICE WEEKLY PRN for ROSACEA, (Reported) Patient Home Medication List Home Medication List Reviewed: Yes Review of Systems Review of Systems Constitutional: No chills, No diaphoresis EENTM: No Blurred Vision, No Double Vision Respiratory: Denies Cough, Denies Shortness of Air Cardiovascular: See HPI, Chest Pain, Irregular Heart Rate, Lightheadedness, Palpitations; Denies Syncope Gastrointestinal: Denies Constipated, Denies Diarrhea, Denies Nausea Genitourinary: Denies Burning, Denies Discharge, Denies Drainage Musculoskeletal: No back pain, No joint pain Skin: No pruritus, No rash Psychiatric/Neurological: Denies Anxiety, Denies Depressed, Denies Headache Past Dwyvels-Dcorbb-Jnnnbl Hx Patient Social History Alcohol Use: Denies Use Recreational Drug Use: No Smoking Status: Never a Smoker Recent Foreign Travel: No Contact w/Someone Who Travel: No Recent Hopitalizations: No Immunizations Up To Date Tetanus Booster (TDap): Unknown PED Vaccines UTD: No Date of Influenza Vaccine: Apr 19, 2017 Seasonal Allergies Seasonal Allergies: No Past Medical History Surgeries: Yes Section, Gallbladder, Tubal Ligation Respiratory: No Cardiac: Yes Atrial Fibrillation, Hypertension Neurological: No 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 6.0oz. 72.494196gu; 29.3 BMI Method:Stated General Appearance: WD/WN, Anxious HEENT: PERRL/EOMI, Pharynx Normal, Moist Mucous Membranes Neck: Full Range of Motion, Supple Respiratory: Chest Non Tender, Lungs Clear, Normal Breath Sounds, No Accessory Muscle Use, No Respiratory Distress Cardiovascular: No Edema, Normal Peripheral Pulses, Irregularly Irregular Gastrointestinal: Normal Bowel Sounds, Non Tender, Soft Extremity: Normal Capillary Refill, No Pedal Edema Neurologic/Psychiatric: Alert, Oriented x3 Skin: Normal Color, Warm/Dry Progress/Results/Core Measures Results/Orders Lab Results Laboratory Tests Test 02/14/18 22:34 Range/Units White Blood Count 7.7 4.3-11.0 10^3/uL Red Blood Count 4.95 4.35-5.85 10^6/uL Hemoglobin 14.4 11.5-16.0 G/DL Hematocrit 43 35-52 % Mean Corpuscular Volume 88 80-99 FL Mean Corpuscular Hemoglobin 29 25-34 PG Mean Corpuscular Hemoglobin Concent 33 32-36 G/DL Red Cell Distribution Width 14.8 H 10.0-14.5 % Platelet Count 272 130-400 10^3/uL Mean Platelet Volume 9.7 7.4-10.4 FL Neutrophils (%) (Auto) 57 42-75 % Lymphocytes (%) (Auto) 29 12-44 % Monocytes (%) (Auto) 10 0-12 % Eosinophils (%) (Auto) 4 0-10 % Basophils (%) (Auto) 0 0-10 % Neutrophils # (Auto) 4.4 1.8-7.8 X 10^3 Lymphocytes # (Auto) 2.3 1.0-4.0 X 10^3 Monocytes # (Auto) 0.8 0.0-1.0 X 10^3 Eosinophils # (Auto) 0.3 0.0-0.3 10^3/uL Basophils # (Auto) 0.0 0.0-0.1 10^3/uL Prothrombin Time 13.0 12.2-14.7 SEC INR Comment 1.0 0.8-1.4 Activated Partial Thromboplast Time 30 24-35 SEC Sodium Level 143 135-145 MMOL/L Potassium Level 3.3 L 3.6-5.0 MMOL/L Chloride Level 108 H 98-107 MMOL/L Carbon Dioxide Level 25 21-32 MMOL/L Anion Gap 10 5-14 MMOL/L Blood Urea Nitrogen 16 7-18 MG/DL Creatinine 0.97 0.60-1.30 MG/DL Estimat Glomerular Filtration Rate 59 BUN/Creatinine Ratio 16 Glucose Level 151 H 70-105 MG/DL Calcium Level 9.6 8.5-10.1 MG/DL Corrected Calcium 9.3 8.5-10.1 MG/DL Magnesium Level 2.2 1.8-2.4 MG/DL Total Bilirubin 0.4 0.1-1.0 MG/DL Aspartate Amino Transf (AST/SGOT) 18 5-34 U/L Alanine Aminotransferase (ALT/SGPT) 13 0-55 U/L Alkaline Phosphatase 55 40-136 U/L Myoglobin 40.4 10.0-92.0 NG/ML Troponin I < 0.30 <0.30 NG/ML Total Protein 7.2 6.4-8.2 GM/DL Albumin 4.4 3.2-4.5 GM/DL My Orders Orders - REINA ROSEN Cbc With Automated Diff (02/14/18 22:38) Magnesium (02/14/18 22:38) Chest 1 View, Ap/Pa Only (02/14/18:38) Ekg Tracing (02/14/18 22:38) Cardiac Profile 1 (02/14/18:38) Comprehensive Metabolic Panel (02/14/18:38) Myoglobin Serum (02/14/18:38) Protime With Inr (02/14/18:38) Partial Thromboplastin Time (02/14/18:38) O2 (02/14/18:) Monitor-Rhythm Ecg Trace Only (02/14/18:38) Lipid Panel (02/15/18 06:00) Aspirin Chewable Tablet (Baby Aspirin Ch (02/14/18 22:45) Saline Lock/Iv-Start (02/14/18 22:38) Saline Lock/Iv-Start (02/14/18 22:38) Ns Iv 1000 Ml (Sodium Chloride 0.9%) (02/14/18 22:38) Ns (Ivpb) (Sodium C... W/Diltiazem Iv Fo (02/14/18 22:45) Diltiazem Injection (Cardizem Injection) (02/14/18 22:45) Medications Given in ED Current Medications Medications Dose Ordered Sig/Juanito Route Start Time Stop Time Status Last Admin Dose Admin Aspirin 324 mg ONCE ONCE PO 02/14/18 22:45 02/14/18 22:46 DC 02/14/18 22:50 324 MG Vital Signs/I&O 02/14/18 02/14/18 22:30 22:55 Temp 97.2 Pulse 162 132 Resp 20 B/P (MAP) 132/109 (117) 137/76 Progress Progress Note : Time: 22:46 Progress Note Patient is in atrial fibrillation with rapid ventricular response. We'll continue give her aspirin to chew on and start with Cardizem this evening get her heart rate down from 140s to 160s and see if that resolves her chest pain. We will collect troponins get a chest x-ray and plan on an overnight stay after consultation with cardiology as well as discussed the need for blood thinners. Dr. Murray cardiac catheterization 2015: Mild coronary artery disease in the distal LAD nonobstructing disease. No significant obstructive disease. Normal left ventricular size and systolic function with an EF of 60%. Initial ECG Impression Date: Feb 14, 2018 Initial ECG Impression Time: 22:30 Initial ECG Rate: 149 Initial ECG Rhythm: A Fib/Flutter Initial ECG Intervals: QT (466) Initial ECG Impression: Atrial Fibrillation w/RVR Initial ECG Comparisson: Changed Comment Atrial fibrillation with rapid ventricular response. Diagnostic Imaging Diagonstic Imaging: Xray Plain Films/CT/US/NM/MRI: chest (1v) Reviewed: Reviewed by Me Departure Communication (Admissions) Time/Spoke to Admitting Phy: 00:23 Discussed case lab imaging EKG and findings with Dr. Mata as well as the plan and he agrees to admit the patient. Time/Spoke to Consulting Phy: 00:[address] Segal and he will turn the patient over to Dr. Murray in the morning and agrees with plan Cardizem in the ICU. Impression Primary Impression: Atrial fibrillation with rapid ventricular response Additional Impression: Hypokalemia Disposition: ADMITTED INPATIENT Condition: Stable Admissions Decision to Admit Reason: Admit from ER (General) Decision to Admit/Date: Feb 15, 2018 Time/Decision to Admit Time: 00:23 Departure-Patient Inst. Referrals: CHELITA ISRAEL MD (PCP/Family) Primary Care Physician Copy Copies To 1: CHELITA ISRAEL MD, TITUS J Feb 14, 2018 22:49
[2018-02-14 23:02] LABS: ALANINE AMINOTRANSFERASE 13 U/L (0-55); ALBUMIN 4.4 GM/DL (3.2-4.5); ALKALINE PHOSPHATASE 55 U/L (40-136); BILIRUBIN,TOTAL 0.4 MG/DL (0.1-1.0); BUN/CREATININE RATIO 16; CALCIUM 9.6 MG/DL (8.5-10.1); CARBON DIOXIDE 25 MMOL/L (21-32); CHLORIDE 108 MMOL/L (98-107); CREATININE SERUM 0.97 MG/DL (0.60-1.30); GFR ESTIMATED 59; GLUCOSE 151 MG/DL (70-105); MAGNESIUM 2.2 MG/DL (1.8-2.4); POTASSIUM 3.3 MMOL/L (3.6-5.0); SODIUM 143 MMOL/L (135-145); TOTAL PROTEIN 7.2 GM/DL (6.4-8.2)
[2018-02-14 23:09] LABS: MYOGLOBIN SERUM 40.4 NG/ML (10.0-92.0)
[2018-02-15] VITALS (23 sets, daily range): BP systolic 92–135; BP diastolic 54–90
--- OUTSIDE RECORDS SUMMARY | 2018-02-15 00:40 | XMS REPORT | Continuity of Care Document ---
Author Author [facility] Organization [facility] Address Unknown Phone Unavailable Allergies Active Description Code Type Severity Reaction Onset Reported/Identified Relationship to Patient Clinical Status Yes No Known Drug Allergies [id number] Drug Allergy Unknown N/A 08/06/2010 Medications There [...] CHELITA LOMELI MD Ot 719.41 12/08/2014 CHELITA LOMEIL MD Ot 401.9 HYPERTENSION NOS 12/08/2014 CHELITA LOMELI MD R Ot 414.01 CORONARY ATHEROSCLEROSIS OF [place] CORON 12/08/2014 CHELITA LOMELI MD Ot 427.31 [...] MD Ot I25.10 ATHSCL HEART DISEASE OF [place] CORONARY 01/02/2015 JUNIE GOVEA MD Ot I48.0 PAROXYSMAL ATRIAL FIBRILLATION 01/02/2015 JUNIE GOVEA MD Ot R00.2 PALPITATIONS 01/02/2015 JUNIE GOVEA MD Ot R07.9 CHEST PAIN, UNSPECIFIED 01/02/2015 JUNIE GOVEA MD Ot V58.69 OTH MED,LT,CURRENT USE 01/02/2015 JUNIE GOVEA MD Ot Z79.899 OTHER ASSISTED (CURRENT) DRUG THERAPY 02/01/2015 Ot 611.72 02/01/2015 [...] CHELITA R Ot 786.2 02/01/2015 YANI RODRIGUEZ, CEHLITA R Ot 462 02/01/2015 YANI RODRIGUEZ, CHELITA [...] CHELITA R Ot 786.2 COUGH 08/12/2015 YANI RODRIGEUZ, CHELITA R Ot 462 ACUTE PHARYNGITIS 08/12/2015 [...] MD Ot 719.41 JOINT PAIN-SHLDER 07/20/2017 DEIDRA DOUADI Ot M25.512 PAIN IN LEFT SHOULDER 08/09/2017 [...] - 04/19/17 01:27 Bacterial blood culture NG [facility] Bacterial blood culture - 04/19/17 01:44 Bacterial blood culture NG [facility] Complete blood count (CBC) with automated [...] - 04/20/17 05:20 Lipase 52 U/L 8-78 Complete blood count (CBC) with automated white blood cell (WBC) differential - 02/14/18 22:34 Blood leukocytes automated count (number/volume) 7.7 10*3/uL 4.3-11.0 Blood erythrocytes automated count (number/volume) 4.95 10*6/uL 4.35-5.85 Venous blood hemoglobin measurement (mass/volume) 14.4 g/dL 11.5-16.0 Blood hematocrit (volume fraction) 43 % 35-52 Automated erythrocyte mean corpuscular volume 88 [foz_us] 80-99 Automated erythrocyte mean corpuscular hemoglobin (mass per erythrocyte) 29 pg 25-34 Automated erythrocyte mean corpuscular hemoglobin concentration measurement ( mass/volume) 33 g/dL 32-36 Automated erythrocyte distribution width ratio 14.8 % 10.0-14.5 Automated blood platelet count (count/volume) 272 10*3/uL 130-400 Automated blood platelet mean volume measurement 9.7 [foz_us] 7.4-10.4 Automated blood neutrophils/100 leukocytes 57 % 42-75 Automated blood lymphocytes/100 leukocytes 29 % 12-44 Blood monocytes/100 leukocytes 10 % 0-12 Automated blood eosinophils/100 leukocytes 4 % 0-10 Automated blood basophils/100 leukocytes 0 % 0-10 Blood neutrophils automated count (number/volume) 4.4 10*3 1.8-7.8 Blood lymphocytes automated count (number/volume) 2.3 10*3 1.0-4.0 Blood monocytes automated count (number/volume) 0.8 10*3 0.0-1.0 Automated eosinophil count 0.3 10*3/uL 0.0-0.3 Automated blood basophil count (count/volume) 0.0 10*3/uL 0.0-0.1 PT panel in platelet poor plasma by coagulation assay - 02/14/18 22:34 Prothrombin time (PT) in platelet poor plasma by coagulation assay 13.0 s 12.2-14.7 INR in platelet poor plasma or blood by coagulation assay 1.0 0.8-1.4 Activated partial thromboplastin time (aPTT) in platelet poor plasma bycoagulation assay - 02/14/18 22:34 Activated partial thromboplastin time (aPTT) in platelet poor plasma bycoagulation assay 30 s 24-35 Comprehensive metabolic panel - 02/14/18 22:34 Serum or plasma sodium measurement (moles/volume) 143 mmol/L 135-145 Serum or plasma potassium measurement (moles/volume) 3.3 mmol/L 3.6-5.0 Serum or plasma chloride measurement (moles/volume) 108 mmol/L 98-107 Carbon dioxide 25 mmol/L 21-32 Serum or plasma anion gap determination (moles/volume) 10 mmol/L 5-14 Serum or plasma urea nitrogen measurement (mass/volume) 16 mg/dL 7-18 Serum or plasma creatinine measurement (mass/volume) 0.97 mg/dL 0.60-1.30 Serum or plasma urea nitrogen/creatinine mass ratio 16 NRG Serum or plasma creatinine measurement with calculation of estimated glomerular filtration rate 59 NRG Serum or plasma glucose measurement (mass/volume) 151 mg/dL 70-105 Serum or plasma calcium measurement (mass/volume) 9.6 mg/dL 8.5-10.1 Serum or plasma total bilirubin measurement (mass/volume) 0.4 mg/dL 0.1-1.0 Serum or plasma alkaline phosphatase measurement (enzymatic activity/volume) 55 U/L 40-136 Serum or plasma aspartate aminotransferase measurement (enzymatic activity/ volume) 18 U/L 5-34 Serum or plasma alanine aminotransferase measurement (enzymatic activity/volume ) 13 U/L 0-55 Serum or plasma protein measurement (mass/volume) 7.2 g/dL 6.4-8.2 Serum or plasma albumin measurement (mass/volume) 4.4 g/dL 3.2-4.5 CALCIUM CORRECTED 9.3 mg/dL 8.5-10.1 Magnesium - 02/14/18 22:34 Magnesium 2.2 mg/dL 1.8-2.4 Serum or plasma troponin i.cardiac measurement (mass/volume) - 02/14/18 22:34 Serum or plasma troponin i.cardiac measurement (mass/volume) < ng/ mL <0.30 Myoglobin, serum - 02/14/18 22:34 Myoglobin, serum 40.4 ng/mL 10.0-92.0 Encounters ACCT No. Visit Date/Time Discharge Status Pt. Type Provider Facility Loc./Unit Complaint [id number] 04/19/2017 01:09:00 04/20/2017 18:15:00 DIS Inpatient NORI RIVERA DO [facility] 4TH PANCREATITIS [id number] 06/21/2015 14:09:00 06/21/2015 14:45:00 DIS Outpatient AI BOOTH APRN [facility] REHAB R SHOULDER PAIN; ADHESIVE CAPSULITIS;NECK PAIN;CERV [id number] 04/09/2015 10:18:00 04/09/2015 23:59:59 CLS Outpatient AUDI GAY DO [facility] RAD LT SHOULDER PAIN [id number] 03/28/2015 08:52:00 03/28/2015 10:59:00 DIS Outpatient AUDI GAY DO [facility] REHAB L SHOULDER PAIN [id number] 01/02/2015 07:20:00 01/02/2015 08:47:00 DIS Outpatient JUNIE GOVEA MD [facility] CATH PALPITATIONS,AFIB [id number] 12/07/2014 21:45:00 12/08/2014 17:45:00 DIS Inpatient CHELITA LOMELI MD [facility] ICU NEW ONSET ATRIAL FIBRILLATION WITH RVR;CHEST PAIN; [id number] 05/01/2014 10:57:00 05/01/2014 23:59:59 CLS Outpatient CHELITA LOMELI MD [facility] RAD HX OF HOG W/ONSET OF PAIN [id number] 03/05/2014 14:28:00 03/05/2014 23:59:59 CLS Outpatient CHELITA LOMELI MD [facility] RAD THROAT PAIN,ACUTE BRONCHOLITIS [id number] 10/17/2013 10:27:00 10/17/2013 23:59:59 CLS Outpatient CHELITA LOMELI MD [facility] RAD PERSISTENT COUGH [id number] 07/10/2013 08:30:00 09/20/2013 00:01:00 DIS Outpatient PANKAJ GARZA MD, FACC, FACP CCDS [facility] CARD PALPITATIONS [id number] 08/01/2013 08:00:00 08/01/2013 23:59:59 CLS Outpatient JOHN BAKER DO [facility] RAD ABNORMAL MAMMO [id number] 07/21/2013 01:15:00 07/27/2013 09:55:00 DIS Inpatient CHELITA LOMELI MD [facility] 4TH PANCREATITIS [id number] 06/27/2013 15:05:00 06/27/2013 23:59:59 CLS Outpatient JOHN BAKER DO [facility] RAD SCREENING [id number] 06/20/2013 10:05:00 06/20/2013 23:59:59 CLS Outpatient PANKAJ GARZA MD, FACC, FACP CCDS [facility] LAB HEART PALPITATIONS,PANCREATITIS [id number] 06/13/2013 07:14:00 06/13/2013 23:59:59 CLS Outpatient CHELITA LOMELI MD [facility] RAD HX PANCREATITIS [id number] 05/26/2013 20:01:00 06/01/2013 09:20:00 DIS Inpatient CHELITA LOMELI MD [facility] 4TH ACUTE PANCREATITIS [id number] 02/14/2018 22:46:00 Document Registration [id number] 03/05/2014 14:29:00 Document Registration [id number] 03/05/2014 14:28:00 Document Registration [id number] 03/05/2014 14:28:00 Document Registration [id number] 09/21/2013 08:00:00 Document Registration [id number] 06/08/2012 14:05:00 Document Registration [id number] 07/27/2011 07:54:00 Document Registration [id number] 07/23/2011 07:31:00 Document Registration [id number] 06/02/2011 14:45:00 Document Registration [id number] 08/06/2010 19:04:00 Document Registration [id number] 03/25/2010 12:57:00 Document Registration [id number] 03/11/2010 08:54:00 Document Registration
[2018-02-15] MEDS ORDERED: 1/2 NS W/KCL 20 MEQ/L 1,000 ML IV ONE (02:27)
[2018-02-15] MEDS: 1/2 NS W/KCL 20 MEQ/L 1,000 ML IV SCH ×3 (02:27→18:47)
[2018-02-15] MEDS ORDERED: ACETAMINOPHEN 500 MG TAB (TYLENOL) PO PRN (06:30)
[2018-02-15 07:06] LABS: CHOLESTEROL 142 MG/DL (< 200); HDL CHOLESTEROL 51 MG/DL (40-60); TRIGLYCERIDES 58 MG/DL (<150); VLDL CHOLESTEROL 12 MG/DL (5-40)
--- NOTE | 2018-02-15 07:16 | Diagnostic Imaging Report ---
Indication: Irregular heartbeat. Comparison: 12/07/2014. Findings: No focal airspace disease in the visualized lungs. Please note that the posterior lower lobes are poorly evaluated by portable radiography. No pleural effusion or pneumothorax. Normal cardiomediastinal silhouette. Impression: No acute cardiopulmonary process by portable radiography. Dictated by: Dictated on workstation # [id number]
[2018-02-15 07:20] LABS: ALANINE AMINOTRANSFERASE 12 U/L (0-55); ALBUMIN 3.5 GM/DL (3.2-4.5); ALKALINE PHOSPHATASE 42 U/L (40-136); BILIRUBIN,TOTAL 0.3 MG/DL (0.1-1.0); BUN/CREATININE RATIO 15; CALCIUM 8.9 MG/DL (8.5-10.1); CARBON DIOXIDE 20 MMOL/L (21-32); CHLORIDE 113 MMOL/L (98-107); CREATININE SERUM 0.78 MG/DL (0.60-1.30); GFR ESTIMATED > 60; GLUCOSE 91 MG/DL (70-105); POTASSIUM 4.3 MMOL/L (3.6-5.0); SODIUM 141 MMOL/L (135-145); TOTAL PROTEIN 5.6 GM/DL (6.4-8.2)
--- NOTE | 2018-02-15 07:26 | Pulmonary Consultation ---
History of Present Illness History of Present Illness Date of Consultation 02/15/18 07:26 Date of Admission Allergies and Home Medications Allergies Coded Allergies: No Known Drug Allergies (Unverified , 08/06/10) Home Medications Ascorbic Acid 1,000 Mg Tablet, 1,000 MG PO DAILY, (Reported) Aspirin 325 Mg Tablet.dr, 325 MG PO DAILY, (Reported) Calcium Carbonate 600 Mg Tablet, 1,200 MG PO DAILY, (Reported) Cyanocobalamin (Vitamin B-12) 5,000 Mcg Tab.subl, 5,000 MCG SL DAILY, (Reported) Hydrocortisone Valerate 15 Gm Cream..g., TP TWICE WEEKLY, (Reported) Metoprolol Succinate 25 Mg Tab.er.24h, 25 MG PO DAILY, (Reported) LAST FILLED #30 09-16-16 Multivitamin 1 Each Tablet, 1 TAB PO DAILY, (Reported) Nystatin/Triamcinolone 15 Gm Cr, TP TWICE WEEKLY PRN for ROSACEA, (Reported) Past Iiuoxzr-Fyrqtl-Rbfhla Hx Patient Social History Alcohol Use: Denies Use Recreational Drug Use: No Smoking Status: Never a Smoker Recent Foreign Travel: No Contact w/Someone Who Travel: No Recent Infectious Disease Expo: No Recent Hopitalizations: No Immunizations Up To Date Tetanus Booster (TDap): Unknown PED Vaccines UTD: No Date of Influenza Vaccine: Jan 17, 2018 Seasonal Allergies Seasonal Allergies: No Past Medical History Surgeries: Yes (, choley, ) Section, Gallbladder, Tubal Ligation Respiratory: No Cardiac: Yes Atrial Fibrillation, Hypertension Neurological: No 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 0.0oz. 63.802402xy; 25.6 BMI Method:Stated Exam Exam Vital Signs Date Time Temp Pulse Resp B/P (MAP) Pulse Ox O2 Delivery O2 Flow Rate FiO2 02/15/18 06:00 95 14 104/77 (86) 99 Room Air 02/15/18 05:00 87 18 96/55 (69) 98 Room Air 02/15/18 04:00 84 17 93/67 (76) 96 Room Air 02/15/18 04:00 98 Room Air 02/15/18 04:00 98.2 02/15/18 03:00 100 17 116/84 (95) 99 Room Air 02/15/18 02:12 90 02/15/18 02:00 98 Room Air 02/15/18 01:40 98.0 107 16 126/89 (101) 98 Room Air 02/15/18 01:00 97.2 132 20 117/89 (98) 98 02/14/18 22:55 132 137/76 02/14/18 22:30 97.2 162 20 132/109 (117) I & O 02/15/18 07:00 Intake Total 1000 ml Balance 1000 ml Height & Weight Height: 5'2.00" Weight: 140lbs. 0.0oz. 63.058507ak; 25.6 BMI Method:Stated General Appearance: WD/WN, Anxious HEENT: PERRL/EOMI, Pharynx Normal, Moist Mucous Membranes Neck: Full Range of Motion, Supple Respiratory: Chest Non Tender, Lungs Clear, Normal Breath Sounds, No Accessory Muscle Use, No Respiratory Distress Cardiovascular: No Edema, Normal Peripheral Pulses, Irregularly Irregular Capillary Refill: Less Than 3 Seconds Extremity: Normal Capillary Refill, No Pedal Edema Neurologic/Psychiatric: Alert, Oriented x3 Skin: Normal Color, Warm/Dry Results Lab Laboratory Tests 02/14/18 22:34 02/15/18 06:34 JOSH CHUN DO Feb 15, 2018 07:26
--- NOTE | 2018-02-15 08:10 | Consultation-Cardiology ---
HPI-Cardiology Cardiology Consultation Date of Consultation 02/15/18 Date of Admission Time Seen by Provider: 08:05 Indication: atrial fibrillation HPI 57-year-old lady with history of atrial fibrillation in the past. Was in her usual state of health, had sudden onset of chest pain and palpitation, heart rate was 160. Came into the emergency room and noted to be in atrial fibrillation with rapid ventricular response. She denied any shortness of breath. No syncope or near syncopal episodes. No claudications. Home Medications & Allergies Allergies: Coded Allergies: No Known Drug Allergies (Unverified , 08/06/10) Home Medication List Reviewed: Yes QKR-Bhreil-Msbeii Hx Patient Social History Marital Status: Alcohol Use: Denies Use Recreational Drug Use: No Smoking Status: Never a Smoker Recent Foreign Travel: No Recent Infectious Disease Expo: No Recent Hopitalizations: No Physical Abuse Screen: No Sexual Abuse: No Immunizations Up To Date Tetanus Booster (TDap): Unknown Date of Influenza Vaccine: Jan 17, 2018 Past Medical History past medical history as described below Family Medical History Significant Family History: No Pertinent Family Hx Family History: Cancer 03 MOTHER Family history: Diabetes mellitus 03 FATHER Review of Systems Constitutional: no symptoms reported, see HPI EENTM: see HPI, no symptoms reported Respiratory: see HPI; No cough, No dyspnea on exertion, No hemoptysis, No orthopnea, No phlegm, No short of breath, No stridor, No wheezing, No other Cardiovascular: see HPI, chest pain; No edema, No Hx of Intervention; palpitations; No syncope, No vascular heart diseas, No other Gastrointestinal: see HPI Genitourinary: no symptoms reported, see HPI Musculoskeletal: no symptoms reported, see HPI Skin: no symptoms reported, see HPI Psychiatric/Neurological: No Symptoms Reported, See HPI Reviewed Test Results Reviewed Test Results Lab Laboratory Tests Test 02/14/18 22:34 02/15/18 06:34 Range/Units White Blood Count 7.7 4.3-11.0 10^3/uL Red Blood Count 4.95 4.35-5.85 10^6/uL Hemoglobin 14.4 11.5-16.0 G/DL Hematocrit 43 35-52 % Mean Corpuscular Volume 88 80-99 FL Mean Corpuscular Hemoglobin 29 25-34 PG Mean Corpuscular Hemoglobin Concent 33 32-36 G/DL Red Cell Distribution Width 14.8 H 10.0-14.5 % Platelet Count 272 130-400 10^3/uL Mean Platelet Volume 9.7 7.4-10.4 FL Neutrophils (%) (Auto) 57 42-75 % Lymphocytes (%) (Auto) 29 12-44 % Monocytes (%) (Auto) 10 0-12 % Eosinophils (%) (Auto) 4 0-10 % Basophils (%) (Auto) 0 0-10 % Neutrophils # (Auto) 4.4 1.8-7.8 X 10^3 Lymphocytes # (Auto) 2.3 1.0-4.0 X 10^3 Monocytes # (Auto) 0.8 0.0-1.0 X 10^3 Eosinophils # (Auto) 0.3 0.0-0.3 10^3/uL Basophils # (Auto) 0.0 0.0-0.1 10^3/uL Prothrombin Time 13.0 12.2-14.7 SEC INR Comment 1.0 0.8-1.4 Activated Partial Thromboplast Time 30 24-35 SEC Sodium Level 143 141 135-145 MMOL/L Potassium Level 3.3 L 4.3 3.6-5.0 MMOL/L Chloride Level 108 H 113 H 98-107 MMOL/L Carbon Dioxide Level 25 20 L 21-32 MMOL/L Anion Gap 10 8 5-14 MMOL/L Blood Urea Nitrogen 16 12 7-18 MG/DL Creatinine 0.97 0.78 0.60-1.30 MG/DL Estimat Glomerular Filtration Rate 59 > 60 BUN/Creatinine Ratio 16 15 Glucose Level 151 H 91 70-105 MG/DL Calcium Level 9.6 8.9 8.5-10.1 MG/DL Corrected Calcium 9.3 9.3 8.5-10.1 MG/DL Magnesium Level 2.2 1.8-2.4 MG/DL Total Bilirubin 0.4 0.3 0.1-1.0 MG/DL Aspartate Amino Transf (AST/SGOT) 18 17 5-34 U/L Alanine Aminotransferase (ALT/SGPT) 13 12 0-55 U/L Alkaline Phosphatase 55 42 40-136 U/L Myoglobin 40.4 10.0-92.0 NG/ML Troponin I < 0.30 < 0.30 <0.30 NG/ML Total Protein 7.2 5.6 L 6.4-8.2 GM/DL Albumin 4.4 3.5 3.2-4.5 GM/DL Triglycerides Level 58 <150 MG/DL Cholesterol Level 142 < 200 MG/DL LDL Cholesterol Direct 87 1-129 MG/DL VLDL Cholesterol 12 5-40 MG/DL HDL Cholesterol 51 40-60 MG/DL Physical Exam Vital Signs Vital Signs - First Documented 02/14/18 02/15/18 02/15/18 22:30 01:00 01:40 Temp 97.2 Pulse 162 Resp 20 B/P (MAP) 132/109 (117) Pulse Ox 98 O2 Delivery Room Air Capillary Refill : Less Than 3 Seconds Height, Weight, BMI Height: 5'2.00" Weight: 140lbs. 0.0oz. 63.716737th; 25.6 BMI Method:Stated General Appearance: No Apparent Distress, WD/WN Eyes: Bilateral Eye Normal Inspection, Bilateral Eye PERRL, Bilateral Eye EOMI HEENT: PERRL/EOMI, TMs Normal, Normal ENT Inspection, Pharynx Normal Neck: Full Range of Motion, Normal Inspection, Non Tender, Supple, Carotid Bruit Respiratory: Chest Non Tender, Lungs Clear, Normal Breath Sounds, No Accessory Muscle Use, No Respiratory Distress Cardiovascular: Regular Rate, Rhythm, No Edema, No Gallop, No JVD, No Murmur, Normal Peripheral Pulses Gastrointestinal: Normal Bowel Sounds, No Organomegaly, No Pulsatile Mass, Non Tender, Soft Back: Normal Inspection, No CVA Tenderness, No Vertebral Tenderness Extremity: Normal Capillary Refill, Normal Inspection, Normal Range of Motion, Non Tender, No Calf Tenderness, No Pedal Edema Neurologic/Psychiatric: Alert, Oriented x3, No Motor/Sensory Deficits, Normal Mood/Affect Skin: Normal Color, Warm/Dry Lymphatic: No Adenopathy A/P-Cardiology Admission Diagnosis chest pain Atrial fibrillation Palpitation Coronary artery disease Assessment/Plan Chest pain nonspecific etiology resembling angina, probably secondary to tachycardia. Patient had a history of cardiac catheterization which was normal in 2014. Continue to monitor EKG and cardiac enzymes. Atrial fibrillation with rapid ventricular response, started on heart disease and drip, received aspirin in the emergency room. Vision is starting on Eliquis today. Patient was seen this morning, she was eating breakfast, I will be unable to do EDSON and cardioversion, planning to do it tomorrow History of coronary artery disease, cardiac catheterization done in November 2014 showing mild disease in the distal LAD nonobstructive disease. Tachycardia, heart rate is better controlled at this time. Continue to monitor Palpitations secondary to atrial fibrillation. Continue to monitor Hypertension, borderline hypotensive at this time. Continue to monitor History of pancreatitis in 2013 Strong family history of heart diseas Clinical Quality Measures DVT/VTE Risk/Contraindication: Risk Factor Score Per Nursin RFS Level Per Nursing on Admit: 1=Low/No VTE PPX JUNIE GOVEA MD Feb 15, 2018 08:10
[2018-02-15] MEDS ORDERED: ENOXAPARIN 60 MG/0.6 ML (LOVENOX) SYR SC ONE (08:15)
[2018-02-15] MEDS: ASPIRIN 81 MG CHEW (CHILDREN'S ASA) PO SCH (08:19)
[2018-02-15] MEDS: APIXABAN 5 MG (ELIQUIS) TABLET PO SCH ×2 (08:26→20:48)
[2018-02-15] MEDS ORDERED: CYAN25006 SL (09:55)
[2018-02-15] MEDS ORDERED: NS IV 500 ML 500 ML IV ONE (14:30)
[2018-02-15] MEDS ORDERED: LIDOCAINE 2% VISCOUS 15 ML UDC PO NR (14:30)
[2018-02-15] MEDS ORDERED: proPOfol 200 MG/20 ML (DIPRIVAN) VIAL IV ONE (14:43)
[2018-02-15] MEDS ORDERED: CATHETER FLUSH 10 ML SYR IV PRN (14:45)
--- NOTE | 2018-02-15 15:29 | Cardiac Procedure Note-CS/ASA ---
Pre-Procedure Note Pre-Op Procedure Note H&P Reviewed The H&P was reviewed, patient examined and no changes noted. Date H&P Reviewed: Feb 15, 2018 Time H&P Reviewed: 15:29 Conscious Sedation Pre-Proced Time 15:29 ASA Score 3 For ASA 3 and 4: Consider anesthesia and medical clearance. Also, for patients with a history of failed moderate sedation consider anesthesia. Airway Lungs Heart ASA score ASA 1: a normal healthy patient ASA 2: a patient with a mild systemic disease (mid diabetes, controlled hypertension, obesity x ASA 3: a patient with a severe systemic disease that limits activity (angina , COPD, prior Myocardial infarction) ASA 4: a patient with an incapacitating disease that is a constant threat to life (CHF, renal failure) ASA 5: a moribund patient not expected to survive 24 hrs. (ruptured aneurysm) ASA 6: a declared brain patient whose organs are being harvested. For emergent operations, add the letter E after the classification Mallampati Classification Grade 3 Sedation Plan Analgesia, Amnesia, Plan communicated to team members, Discussed options with patient/fam, Discussed risks with patient/fam The patient is an appropriate candidate to undergo the planned procedure, sedation, and anesthesia. The patient immediately re-assessed prior to indication. JUNIE GOVEA MD Feb 15, 2018 15:29
--- NOTE | 2018-02-15 15:59 | Anesthesia-Procedure Note ---
Procedures/Interventions Procedure Start/Stop/Diagnosis Date of Procedure: Feb 15, 2018 Start Time: 15:25 Referring Physician: Terri Preprocedural Diagnosis: AFIB Brief History Brief report obtained from ICU, RN. Dentures removed. Allergies verified. Discussed sedation with patient, wishes to proceed. Stop Time: 15:40 EDSON/Cardioversion Anesthesia Type: mac ASA Class: 3 Medications Propofol 100mg IV titrated to desired effect. VSS. See nurses notes for details. Monitors and Equipment: BP Cuff - Left, Continuous EKG, End Tidal CO2, IV, Pulse Oximeter, V Lead EKG MAGO SCHILLING CRNA Feb 15, 2018 15:59
--- NOTE | 2018-02-15 16:00 | Anesthesia-General Post-Op ---
MAC Patient Condition Mental Status/LOC: Same as Preop Cardiovascular: Satisfactory Nausea/Vomiting: Absent Respiratory: Satisfactory Pain: Controlled Complications: Absent Post Op Complications Complications None Follow Up Care/Instructions Patient Instructions None needed. Anesthesiology Discharge Order Discharge Order Patient is doing well, no complaints, stable vital signs, no apparent adverse anesthesia problems. No complications reported per nursing. MAGO SCHILLING CRNA Feb 15, 2018 16:00
[2018-02-15] MEDS: DILTIAZEM 120 MG (CARDIZEM CD) CAP PO SCH (16:24)
--- NOTE | 2018-02-15 16:36 | History & Physical-Hospitalist ---
History of Present Illness HPI/Chief Complaint The patient is a 57-year-old white female who was admitted after she presented to the emergency room last night with complaints of palpitations and shortness of breath. She reported that she had gone to bed and rolled over onto her side and noted pounding and the onset of shortness of breath. This had not been previously a problem. She had no known heart disease. Workup in the emergency room found her to have atrial fibrillation with a rapid ventricular response. Date Seen 02/15/18 Time Seen by a Provider: 16:36 Attending Physician Zay Carbajal MD PCP Pedro Israel MD Referring Physician Date of Admission Feb 15, 2018 at 00:35 Home Medications & Allergies Home Medications Reviewed patient Home Medication Reconciliation performed by pharmacy medication reconciliations emissions testing and repair technician and/or nursing. Patients Allergies have been reviewed. Allergies Allergies Coded Allergies No Known Drug Allergies (Unverified08/06/10) Past Iuyqqrc-Iorysn-Rnlphs Hx Patient Social History Marrital Status: Alcohol Use: Denies Use Recreational Drug Use: No Smoking Status: Never a Smoker Physical Abuse Screen: No Sexual Abuse: No Recent Foreign Travel: No Contact w/other who traveled: No Recent Hopitalizations: No Recent Infectious Disease Expo: No Immunizations Up To Date Tetanus Booster (TDap): Unknown Pediatric: No Date of Influenza Vaccine: Jan 17, 2018 Seasonal Allergies Seasonal Allergies: No Past Medical History Surgeries: Section, Gallbladder, Tubal Ligation Cardiac: Atrial Fibrillation, Hypertension Reproductive: No Sexually Transmitted Disease: No HIV/AIDS: No Menopausal Gastrointestinal: Pancreatitis History of Blood Disorders: No Adverse Reaction to Blood Pelletier: No Family History Cancer 03 MOTHER Family history: Diabetes mellitus 03 FATHER No Pertinent Family Hx Physical Exam Physical Exam Vital Signs Vital Signs - First Documented 02/14/18 02/15/18 02/15/18 22:30 01:00 01:40 Temp 97.2 Pulse 162 Resp 20 B/P (MAP) 132/109 (117) Pulse Ox 98 O2 Delivery Room Air Capillary Refill : Less Than 3 Seconds Height, Weight, BMI Height: 5'2.00" Weight: 140lbs. 0.0oz. 63.519080vs; 25.6 BMI Method:Stated Results Results/Procedures Labs Laboratory Tests 02/14/18 22:34 02/15/18 06:34 Patient resulted labs reviewed. Clinical Quality Measures DVT/VTE Risk/Contraindication: Risk Factor Score Per Nursin RFS Level Per Nursing on Admit: 1=Low/No VTE PPX ZAY CARBAJAL MD Feb 15, 2018 16:36
[2018-02-16] VITALS (8 sets, daily range): BP systolic 93–147; BP diastolic 62–93
[2018-02-16] MEDS: 1/2 NS W/KCL 20 MEQ/L 1,000 ML IV SCH (01:26)
[2018-02-16 03:46] LABS: BASOPHILS % (AUTO) 0 % (0-10); EOSINOPHILS # (AUTO) 0.4 10^3/uL (0.0-0.3); EOSINOPHILS % (AUTO) 5 % (0-10); HEMATOCRIT 42 % (35-52); HEMOGLOBIN 13.7 G/DL (11.5-16.0); LYMPHOCYTES # (AUTO) 2.3 X 10^3 (1.0-4.0); LYMPHOCYTES % (AUTO) 32 % (12-44); MEAN CORPUSCULAR HEMOGLOBIN 29 PG (25-34); MEAN CORPUSCULAR HGB CONC 33 G/DL (32-36); MEAN CORPUSCULAR VOLUME 88 FL (80-99); MEAN PLATELET VOLUME 10.1 FL (7.4-10.4); MONOCYTES # (AUTO) 0.6 X 10^3 (0.0-1.0); MONOCYTES % (AUTO) 8 % (0-12); NEUTROPHILS % (AUTO) 55 % (42-75); PLATELET COUNT 243 10^3/uL (130-400); RED BLOOD COUNT 4.79 10^6/uL (4.35-5.85); RED CELL DISTRIBUTION WIDTH 14.8 % (10.0-14.5); WHITE BLOOD COUNT 7.3 10^3/uL (4.3-11.0)
[2018-02-16 04:01] LABS: BUN/CREATININE RATIO 21; CALCIUM 8.9 MG/DL (8.5-10.1); CARBON DIOXIDE 21 MMOL/L (21-32); CHLORIDE 111 MMOL/L (98-107); CREATININE SERUM 0.77 MG/DL (0.60-1.30); GFR ESTIMATED > 60; GLUCOSE 93 MG/DL (70-105); PHOSPHORUS 3.4 MG/DL (2.3-4.7); POTASSIUM 4.8 MMOL/L (3.6-5.0); SODIUM 139 MMOL/L (135-145)
--- NOTE | 2018-02-16 06:16 | Pulmonary Progress Note ---
Sepsis Event Evaluation Height, Weight, BMI Height: 5'2.00" Weight: 143lbs. 2.0oz. 64.192036ex; 25.6 BMI Method:Stated Exam Exam Vital Signs Date Time Temp Pulse Resp B/P (MAP) Pulse Ox O2 Delivery O2 Flow Rate FiO2 02/16/18 04:00 58 15 100/67 (78) 98 Room Air 02/16/18 04:00 97.9 02/16/18 04:00 98 Room Air 02/16/18 03:00 65 17 93/62 (72) 97 Room Air 02/16/18 02:00 56 17 99/65 (76) 97 Room Air 02/16/18 01:58 60 02/16/18 01:00 70 02/16/18 01:00 70 18 94/62 (73) 98 Room Air 02/16/18 00:00 98 Room Air 02/16/18 00:00 97.0 02/16/18 00:00 52 17 94/67 (76) 99 Room Air 02/15/18 23:00 70 16 116/83 (94) 99 Room Air 02/15/18 22:00 72 11 117/82 (94) 99 Room Air 02/15/18 21:00 68 17 97/54 (68) 98 Room Air 02/15/18 20:45 74 19 95/57 (70) 97 Room Air 02/15/18 20:00 80 22 101/74 (83) 97 Room Air 02/15/18 20:00 98 Room Air 02/15/18 19:51 97.3 02/15/18 19:00 74 02/15/18 19:00 74 17 103/67 (79) 99 Room Air 02/15/18 18:00 75 14 133/90 (104) 100 Room Air 02/15/18 17:00 66 20 121/76 (91) 100 Room Air 02/15/18 16:00 69 17 132/82 (99) 100 Room Air 02/15/18 15:45 100 Room Air 02/15/18 15:30 100 Room Air 02/15/18 15:02 98 Room Air 02/15/18 15:00 73 11 135/85 (102) 100 Room Air 02/15/18 14:00 51 19 106/80 (89) 100 Room Air 02/15/18 13:00 52 18 108/69 (82) 98 Room Air 02/15/18 13:00 52 02/15/18 12:00 70 19 97/69 (78) 97 Room Air 02/15/18 12:00 98 Room Air 02/15/18 11:00 71 10 134/78 (96) 100 Room Air 02/15/18 10:00 85 19 92/63 (73) 99 Room Air 02/15/18 09:00 97 19 109/80 (90) 99 Room Air 02/15/18 08:00 91 18 107/72 (84) 99 Room Air 02/15/18 08:00 98 Room Air 02/15/18 07:00 112 02/15/18 07:00 112 14 113/70 (84) 98 Room Air I & O 02/16/18 07:00 Intake Total 440 ml Balance 440 ml Height & Weight Height: 5'2.00" Weight: 143lbs. 2.0oz. 64.257658em; 25.6 BMI Method:Stated General Appearance: No Apparent Distress, WD/WN HEENT: PERRL/EOMI, TMs Normal, Normal ENT Inspection, Pharynx Normal Neck: Full Range of Motion, Normal Inspection, Non Tender, Supple, Carotid Bruit Respiratory: Chest Non Tender, Lungs Clear, Normal Breath Sounds, No Accessory Muscle Use, No Respiratory Distress Cardiovascular: Regular Rate, Rhythm, No Edema, No Gallop, No JVD, No Murmur, Normal Peripheral Pulses Capillary Refill: Less Than 3 Seconds Extremity: Normal Capillary Refill, Normal Inspection, Normal Range of Motion, Non Tender, No Calf Tenderness, No Pedal Edema Neurologic/Psychiatric: Alert, Oriented x3, No Motor/Sensory Deficits, Normal Mood/Affect Skin: Normal Color, Warm/Dry Lymphatic: No Adenopathy Results Lab Laboratory Tests 02/14/18 22:34 02/15/18 06:34 02/16/18 03:35 Assessment/Plan Assessment/Plan Afib RVR - converted to sinus at 2am this morning -Cardizem gtt - off since yesterday afternoon -PO cardizem -Currenly on Eliquis CP Snores, morning HANKS, -Will do PSG as out patient. Home vs 4th floor today. JOSH CHUN DO Feb 16, 2018 06:16
--- NOTE | 2018-02-16 07:39 | Cardiology Progress Note ---
Subjective Date Seen by Provider: Feb 16, 2018 Time Seen by Provider: 07:37 Subjective/Events-last exam Patient is laying down in bed, converted back to sinus rhythm, doing well. Review of Systems General: No Chills, No Night Sweats, No Fatigue, No Malaise, No Appetite, No Other HEENT: No Head Aches, No Visual Changes, No Eye Pain, No Ear Pain, No Dysphasia , No Sinus Congestion, No Post Nasal Drip, No Sore Throat, No Other Pulmonary: No Dyspnea, No Cough, No Pleuritic Chest Pain, No Other Cardiovascular: No: Chest Pain, Palpitations, Orthopnea, Paroxysmal Noc. Dyspnea, Edema, Lt Headedness, Other Objective-Cardiology Exam Last Set of Vital Signs Vital Signs 02/16/18 06:00 Pulse 70 Resp 15 B/P (MAP) 147/93 (111) Pulse Ox 100 O2 Delivery Room Air Capillary Refill : Less Than 3 Seconds I&O Intake and Output 02/16/18 00:00 Intake Total 420 ml Balance 420 ml Intake Oral 420 ml # Voids 12 Daily Weight Change No General: Alert, Oriented X3, Cooperative HEENT: Atraumatic, PERRLA Neck: Supple, No JVD, No Thyromegaly Lungs: Clear to Auscultation, Normal Air Movement Heart: Regular Rate, Normal S1, Normal S2, No Murmurs Abdomen: Normal Bowel Sounds, Soft, No Tenderness, No Hepatosplenomegaly, No Masses Extremities: No Clubbing, No Cyanosis, No Edema, Normal Pulses, No Tenderness/ Swelling Skin: No Rashes, No Breakdown, No Significant Lesion Neuro: Normal Gait, Normal Speech, Strength at 5/5 X4 Ext, Normal Tone, Sensation Intact Psych/Mental Status: Mental Status NL, Mood NL Results Lab Laboratory Tests 02/16/18 03:35 A/P-Cardiology Admission Diagnosis chest pain Atrial fibrillation Palpitation Coronary artery disease Assessment/Plan Chest pain nonspecific etiology resembling angina, probably secondary to tachycardia. Patient had a history of cardiac catheterization which was normal in 2014. No further episodes of chest pain Paroxysmal atrial fibrillation, underwent EDSON yesterday which showed echogenic density in the left atrial appendage suspicious of small thrombus. No cardioversion was done, she converted to sinus rhythm spontaneously later at night while she was on Cardizem and she is in sinus rhythm, has been on oral anticoagulation, feeling well. Planning to discharge home today. History of coronary artery disease, cardiac catheterization done in November 2014 showing mild disease in the distal LAD nonobstructive disease. Palpitations secondary to atrial fibrillation. Continue to monitor Hypertension, better control at this time. Continue to monitor History of pancreatitis in 2013 Strong family history of heart diseas Clinical Quality Measures DVT/VTE Risk/Contraindication: Risk Factor Score Per Nursin RFS Level Per Nursing on Admit: 1=Low/No VTE PPX JUNIE GOVEA MD Feb 16, 2018 07:39
[2018-02-16] MEDS ORDERED: APIX5TAB PO (07:40)
[2018-02-16] MEDS: APIXABAN 5 MG (ELIQUIS) TABLET PO SCH (08:09)
[2018-02-16] MEDS: ASPIRIN 81 MG CHEW (CHILDREN'S ASA) PO SCH (08:10)
[2018-02-16] MEDS: DILTIAZEM 120 MG (CARDIZEM CD) CAP PO SCH (10:26)
--- NOTE | 2018-02-16 10:47 | Short Stay Summary-Hospitalist ---
History of Present Illness HPI/Chief Complaint The patient is a 57-year-old white female who was admitted after she presented to the emergency room last night with complaints of palpitations and shortness of breath. She reported that she had gone to bed and rolled over onto her side and noted pounding and the onset of shortness of breath. This had not been previously a problem. She had no known heart disease. Workup in the emergency room found her to have atrial fibrillation with a rapid ventricular response. Source: patient Date Seen 02/16/18 Time Seen by a Provider: 10:00 Attending Physician Zay Mata MD PCP Pedro Israel MD Referring Physician Date of Admission Feb 15, 2018 at 00:35 Home Medications & Allergies Home Medications Reviewed patient Home Medication Reconciliation performed by pharmacy medication reconciliations photographic laboratory technician and/or nursing. Patients Allergies have been reviewed. Allergies Allergies Coded Allergies No Known Drug Allergies (Unverified08/06/10) Past Equcbuz-Zyokmx-Efagwy Hx Patient Social History Marrital Status: Alcohol Use: Denies Use Recreational Drug Use: No Smoking Status: Never a Smoker Physical Abuse Screen: No Sexual Abuse: No Recent Foreign Travel: No Contact w/other who traveled: No Recent Hopitalizations: No Recent Infectious Disease Expo: No Immunizations Up To Date Tetanus Booster (TDap): Unknown Pediatric: No Date of Influenza Vaccine: Jan 17, 2018 Seasonal Allergies Seasonal Allergies: No Past Medical History Surgeries: Section, Gallbladder, Tubal Ligation Cardiac: Atrial Fibrillation, Hypertension Reproductive: No Sexually Transmitted Disease: No HIV/AIDS: No Menopausal Gastrointestinal: Pancreatitis History of Blood Disorders: No Adverse Reaction to Blood Pelletier: No Family History Cancer 03 MOTHER Family history: Diabetes mellitus 03 FATHER No Pertinent Family Hx Physical Exam Physical Exam Vital Signs Vital Signs - First Documented 02/14/18 02/15/18 02/15/18 22:30 01:00 01:40 Temp 97.2 Pulse 162 Resp 20 B/P (MAP) 132/109 (117) Pulse Ox 98 O2 Delivery Room Air Capillary Refill : Less Than 3 Seconds Height, Weight, BMI Height: 5'2.00" Weight: 143lbs. 2.0oz. 64.353696bq; 25.6 BMI Method:Stated Results Results/Procedures Labs Laboratory Tests 02/14/18 22:34 02/15/18 06:34 02/16/18 03:35 Patient resulted labs reviewed. Clinical Quality Measures DVT/VTE Risk/Contraindication: Risk Factor Score Per Nursin RFS Level Per Nursing on Admit: 1=Low/No VTE PPX NORI RIVERA DO Feb 16, 2018 10:47
--- NOTE | 2018-02-16 10:48 | Discharge Summary-Hospitalist ---
Diagnosis/Chief Complaint Date of Admission Feb 15, 2018 at 00:35 Date of Discharge Discharge Date: Feb 16, 2018 Discharge Diagnosis (1) NEW ONSET ATRIAL FIBRILLATION WITH RVR Status: Acute (2) Hypertension Status: Acute Discharge Summary Discharge Physical Exam Allergies: Coded Allergies: No Known Drug Allergies (Unverified , 08/06/10) Vitals & I&Os Vital Signs Date Time Temp Pulse Resp B/P (MAP) Pulse Ox O2 Delivery O2 Flow Rate FiO2 02/16/18 11:01 02/16/18 09:00 71 19 Room Air 02/16/18 08:08 98.3 02/16/18 06:00 100 General Appearance: No Apparent Distress, WD/WN Respiratory: Chest Non Tender, Lungs Clear, Normal Breath Sounds, No Accessory Muscle Use, No Respiratory Distress Cardiovascular: Regular Rate, Rhythm, No Edema, No Gallop, No JVD, No Murmur, Normal Peripheral Pulses Neurologic/Psychiatric: Alert, Oriented x3, No Motor/Sensory Deficits, Normal Mood/Affect Hospital Course Hospital course: patient had an uneventful hospital course. She was admitted for new onset AF w/RVR and underwent EDSON revealing no thrombus so she was cardioverted and is currently having no complaints. She will be DC home. Labs (last 24 hrs) Laboratory Tests 02/16/18 03:35: White Blood Count 7.3, Red Blood Count 4.79, Hemoglobin 13.7, Hematocrit 42, Mean Corpuscular Volume 88, Mean Corpuscular Hemoglobin 29, Mean Corpuscular Hemoglobin Concent 33, Red Cell Distribution Width 14.8H, Platelet Count 243, Mean Platelet Volume 10.1, Neutrophils (%) (Auto) 55, Lymphocytes (%) (Auto) 32 , Monocytes (%) (Auto) 8, Eosinophils (%) (Auto) 5, Basophils (%) (Auto) 0, Neutrophils # (Auto) 4.0, Lymphocytes # (Auto) 2.3, Monocytes # (Auto) 0.6, Eosinophils # (Auto) 0.4H, Basophils # (Auto) 0.0, Sodium Level 139, Potassium Level 4.8, Chloride Level 111H, Carbon Dioxide Level 21, Anion Gap 7, Blood Urea Nitrogen 16, Creatinine 0.77, Estimat Glomerular Filtration Rate > 60, BUN/ Creatinine Ratio 21, Glucose Level 93, Calcium Level 8.9, Phosphorus Level 3.4, Magnesium Level 2.0 Microbiology 10/30/18 MRSA Screen - Final, Complete Patient resulted labs reviewed. Pending Labs Discussion & Recommendations Discharge Planning: <30 minutes discharge planning Discharge Home Medications: Active Scripts Active Eliquis (Apixaban) 5 Mg Tablet 5 Mg PO BID Reported B-12 (Cyanocobalamin (Vitamin B-12)) 2,500 Mcg Tab.subl 2,500 Mcg SL DAILY Nystatin-Triamcinolone Cream (Nystatin/Triamcinolone) 15 Gm Cr TP TWICE WEEKLY PRN Hydrocortisone Valerate 15 Gm Cream..g. TP TWICE WEEKLY Metoprolol Succinate 25 Mg Tab.er.24h 25 Mg PO DAILY Vitamin C (Ascorbic Acid) 1,000 Mg Tablet 1,000 Mg PO DAILY Calcium (Calcium Carbonate) 600 Mg Tablet 1,200 Mg PO DAILY Daily Multiple Vitamin (Multivitamin) 1 Each Tablet 1 Tab PO DAILY Instructions to patient/family Please see electronic discharge instructions given to patient. Clinical Quality Measures DVT/VTE Risk/Contraindication: Risk Factor Score Per Nursin RFS Level Per Nursing on Admit: 1=Low/No VTE PPX Problem Qualifiers (1) Hypertension: Hypertension type: essential hypertension Qualified Codes: I10 - Essential ( primary) hypertension NORI RIVERA DO Feb 16, 2018 10:48
== END 2018-02-16 11:01 | disposition home or self-care (01) ==
LOC: EDUNIT# 22:24 → ER 22:27 → ICU 22:28 → CATH 22:28 → UNDOADMOB 02-15 00:35 → ICU 02-15 00:35 → CATH 02-16 11:01 → UNDODISOB 02-16 11:01
PROVIDERS: ATTEND Internal Medicine
DX: I48.0 Paroxysmal atrial fibrillation (principal); I10 Essential (primary) hypertension; I25.10 Atherosclerotic heart disease of native coronary artery without angina pectoris; E87.6 Hypokalemia; Z82.49 Family history of ischemic heart disease and other diseases of the circulatory system
CPT/HCPCS: 36415; 71045; 80048; 80053; 80061; 83735; 83874; 84100; 84484; 85025; 85610; 85730; 87081; 93005; 93041; 93306; 93320; 96361; 96374; G0378

== ENCOUNTER 2018-05-09 02:46 | Day surgery (SDC) | payer OTHER ==
[~2018-05-09] VITALS: Ht 157.5 cm; Wt 64.0 kg
[2018-05-09] VITALS (9 sets, daily range): BP systolic 95–129; BP diastolic 65–93
[~2018-05-09 02:46] MED LIST changes: +APIX5TAB PO; +CYAN25006 SL
--- OUTSIDE RECORDS SUMMARY | 2018-05-09 02:54 | XMS REPORT | Continuity of Care Document ---
Author Author [facility] Organization [facility] Address Unknown Phone Unavailable Allergies Active Description Code Type Severity Reaction Onset Reported/Identified Relationship to Patient Clinical Status Yes No Known Drug Allergies [id number] Drug Allergy Unknown N/A 08/06/2010 Medications There [...] MD R Ot 414.01 CORONARY ATHEROSCLEROSIS OF [place] CORON 12/08/2014 CHELITA LOMELI MD Ot 427.31 [...] MD Ot I25.10 ATHSCL HEART DISEASE OF [place] CORONARY 01/02/2015 JUNIE GOVEA MD Ot I48.0 PAROXYSMAL ATRIAL FIBRILLATION 01/02/2015 JUNIE GOVEA MD Ot R00.2 PALPITATIONS 01/02/2015 JUNIE GOVEA MD Ot R07.9 CHEST PAIN, UNSPECIFIED 01/02/2015 JUNIE GOVEA MD Ot V58.69 OTH MED,LT,CURRENT USE 01/02/2015 JUNIE GOVEA MD Ot Z79.899 OTHER HALFWAY (CURRENT) DRUG THERAPY 02/01/2015 Ot 611.72 02/01/2015 Ot 733.90 02/01/2015 Ot V76.12 02/01/2015 Ot 610.0 02/01/2015 Ot 793.80 02/01/2015 Ot 610.0 02/01/2015 Ot V72.84 02/01/2015 Ot V76.12 02/01/2015 YANI RODRIGUEZ, CHELITA R Ot 577.0 02/01/2015 GREG RODRIGUEZ FAC, ALI FACP CCDS Ot 577.0 02/01/2015 GREG RODRIGUEZ FAC, ALI FACP CCDS Ot 785.1 02/01/2015 BAKER DOJHON Ot 793.89 02/01/2015 BAKER DOJOHN C Ot [...] CHELITA R Ot 577.0 04/26/2015 GREG RODRIGUEZ [facility], ALI FACP CCDS Ot 577.0 04/26/2015 GREG RODRIGUEZ [facility], ALI FACP CCDS Ot 785.1 04/26/2015 [...] OTH (ABN) FINDINGS ON RADIOLOGICAL EXAMI 04/18/2017 BKAER DO JOHN C Ot V76.12 OTH SCREEN [...] OTH SCREEN MAMMO-MALIGN NEOPLASM OF [place] 08/09/2017 YANI RODRIGUEZ, CHELITA R Ot 577.0 ACUTE PANCREATITIS 08/09/2017 GREG RODRIGUEZ FAC, ALI FACP CCDS Ot 577.0 ACUTE PANCREATITIS 08/09/2017 GREG RODRIGUEZ FACC, ALI FACP CCDS Ot 785.1 PALPITATIONS 08/09/2017 BAKER DO, JOHN C Ot 793.89 OTH (ABN) FINDINGS ON RADIOLOGICAL EXAMI 08/09/2017 BAKER DO, JOHN C Ot V76.12 OTH SCREEN MAMMO-MALIGN NEOPLASM OF [place] 08/09/2017 BAKER DO, JOHN C Ot 793.80 UNSPEC ABNORMAL MAMMOGRAM 08/09/2017 Ot 577.0 ACUTE PANCREATITIS 08/09/2017 YANI RODRIGUEZ, CHELITA R Ot 786.2 COUGH 08/09/2017 YANI RODRIGUEZ, CHELITA R Ot 462 ACUTE PHARYNGITIS 08/09/2017 YANI RODRIGUEZ, CHELITA R Ot 466.0 ACUTE BRONCHITIS 08/09/2017 YANI RODRIGUEZ, CHELITA R Ot 719.41 JOINT PAIN-SHLDER 08/09/2017 AUDI GAY DO Ot M25.512 PAIN IN LEFT SHOULDER 02/16/2018 TEE CARBAJAL MD Ot E87.6 HYPOKALEMIA 02/16/2018 TEE CARBAJAL MD Ot I10 ESSENTIAL (PRIMARY) HYPERTENSION 02/16/2018 TEE CARBAJAL MD Ot I25.10 ATHSCL HEART DISEASE OF [place] CORONARY 02/16/2018 TEE CARBAJAL MD Ot I48.0 PAROXYSMAL ATRIAL FIBRILLATION 02/16/2018 TEE CARBAJAL MD Ot Z82.49 FAMILY HX OF ISCHE[place] HEART DIS AND OTH DI 02/18/2018 TEE CARBAJAL MD Ot E87.6 HYPOKALEMIA 02/18/2018 TEE CARBAJAL MD Ot I10 ESSENTIAL (PRIMARY) HYPERTENSION 02/18/2018 TEE CARBAJAL MD Ot I25.10 ATHSCL HEART DISEASE OF [place] CORONARY 02/18/2018 TEE CARBAJAL MD Ot I48.0 PAROXYSMAL ATRIAL FIBRILLATION 02/18/2018 TEE CARBAJAL MD Ot Z82.49 FAMILY HX OF I[place]HE[place] HEART DIS AND OTH DI 02/21/2018 TEE CARBAJAL MD Ot E87.6 HYPOKALEMIA 02/21/2018 TEE CARBAJAL MD Ot I10 ESSENTIAL (PRIMARY) HYPERTENSION 02/21/2018 TEE CARBAJAL MD Ot I25.10 ATHSCL HEART DISEASE OF [place] CORONARY 02/21/2018 TEE CARBAJAL MD Ot I48.0 PAROXYSMAL ATRIAL FIBRILLATION 02/21/2018 TEE CARBAJAL MD Ot Z82.49 FAMILY HX OF ISCHE[place] HEART DIS AND OTH DI Procedures Code Description Performed By Performed On [...] NRG Blood erythrocyte morphology finding identification NORMAL BANNER Comprehensive metabolic panel - 04/18/17 22:56 Serum [...] - 04/19/17 01:27 Bacterial blood culture NG NR Bacterial blood culture - 04/19/17 01:44 Bacterial blood culture NG BANNER Complete blood count (CBC) with automated white [...] platelet poor plasma by coagulation assay - 10/29/18 22:34 Prothrombin time (PT) in platelet poor [...] 02/14/18 22:34 Myoglobin, serum 40.4 ng/mL 10.0-92.0 Methicillin resistant Staphylococcus aureus (MRSA) screening culture - 01:50 MRSA SCREEN RESULT MRSA ISOLATED BANNER Lipid 1996 panel - 02/15/18 06:34 Serum or plasma triglyceride measurement (mass/volume) 58 mg/dL <150 Serum or plasma cholesterol measurement (mass/volume) 142 mg/dL < 200 Serum or plasma cholesterol in HDL measurement (mass/volume) 51 mg/ dL 40-60 Cholesterol in LDL [mass/volume] in serum or plasma by direct assay 87 mg/dL 1-129 Serum or plasma cholesterol in VLDL measurement (mass/volume) 12 mg/ dL 5-40 Comprehensive metabolic panel - 02/15/18 06:34 Serum or plasma sodium measurement (moles/volume) 141 mmol/L 135-145 Serum or plasma potassium measurement (moles/volume) 4.3 mmol/L 3.6-5.0 Serum or plasma chloride measurement (moles/volume) 113 mmol/L 98-107 Carbon dioxide 20 mmol/L 21-32 Serum or plasma anion gap determination (moles/volume) 8 mmol/L 5-14 Serum or plasma urea nitrogen measurement (mass/volume) 12 mg/dL 7-18 Serum or plasma creatinine measurement (mass/volume) 0.78 mg/dL 0.60-1.30 Serum or plasma urea nitrogen/creatinine mass ratio 15 NRG Serum or plasma creatinine measurement with calculation of estimated glomerular filtration rate > NRG Serum or plasma glucose measurement (mass/volume) 91 mg/dL 70-105 Serum or plasma calcium measurement (mass/volume) 8.9 mg/dL 8.5-10.1 Serum or plasma total bilirubin measurement (mass/volume) 0.3 mg/dL 0.1-1.0 Serum or plasma alkaline phosphatase measurement (enzymatic activity/volume) 42 U/L 40-136 Serum or plasma aspartate aminotransferase measurement (enzymatic activity/ volume) 17 U/L 5-34 Serum or plasma alanine aminotransferase measurement (enzymatic activity/volume ) 12 U/L 0-55 Serum or plasma protein measurement (mass/volume) 5.6 g/dL 6.4-8.2 Serum or plasma albumin measurement (mass/volume) 3.5 g/dL 3.2-4.5 CALCIUM CORRECTED 9.3 mg/dL 8.5-10.1 Serum or plasma troponin i.cardiac measurement (mass/volume) - 02/15/18 06:34 Serum or plasma troponin i.cardiac measurement (mass/volume) < ng/ mL <0.30 Complete blood count (CBC) with automated white blood cell (WBC) differential - 02/16/18 03:35 Blood leukocytes automated count (number/volume) 7.3 10*3/uL 4.3-11.0 Blood erythrocytes automated count (number/volume) 4.79 10*6/uL 4.35-5.85 Venous blood hemoglobin measurement (mass/volume) 13.7 g/dL 11.5-16.0 Blood hematocrit (volume fraction) 42 % 35-52 Automated erythrocyte mean corpuscular volume 88 [foz_us] 80-99 Automated erythrocyte mean corpuscular hemoglobin (mass per erythrocyte) 29 pg 25-34 Automated erythrocyte mean corpuscular hemoglobin concentration measurement ( mass/volume) 33 g/dL 32-36 Automated erythrocyte distribution width ratio 14.8 % 10.0-14.5 Automated blood platelet count (count/volume) 243 10*3/uL 130-400 Automated blood platelet mean volume measurement 10.1 [foz_us] 7.4-10.4 Automated blood neutrophils/100 leukocytes 55 % 42-75 Automated blood lymphocytes/100 leukocytes 32 % 12-44 Blood monocytes/100 leukocytes 8 % 0-12 Automated blood eosinophils/100 leukocytes 5 % 0-10 Automated blood basophils/100 leukocytes 0 % 0-10 Blood neutrophils automated count (number/volume) 4.0 10*3 1.8-7.8 Blood lymphocytes automated count (number/volume) 2.3 10*3 1.0-4.0 Blood monocytes automated count (number/volume) 0.6 10*3 0.0-1.0 Automated eosinophil count 0.4 10*3/uL 0.0-0.3 Automated blood basophil count (count/volume) 0.0 10*3/uL 0.0-0.1 Whole blood basic metabolic panel - 02/16/18 03:35 Serum or plasma sodium measurement (moles/volume) 139 mmol/L 135-145 Serum or plasma potassium measurement (moles/volume) 4.8 mmol/L 3.6-5.0 Serum or plasma chloride measurement (moles/volume) 111 mmol/L 98-107 Carbon dioxide 21 mmol/L 21-32 Serum or plasma anion gap determination (moles/volume) 7 mmol/L 5-14 Serum or plasma urea nitrogen measurement (mass/volume) 16 mg/dL 7-18 Serum or plasma creatinine measurement (mass/volume) 0.77 mg/dL 0.60-1.30 Serum or plasma urea nitrogen/creatinine mass ratio 21 NRG Serum or plasma creatinine measurement with calculation of estimated glomerular filtration rate > NRG Serum or plasma glucose measurement (mass/volume) 93 mg/dL 70-105 Serum or plasma calcium measurement (mass/volume) 8.9 mg/dL 8.5-10.1 Serum or plasma phosphate measurement (mass/volume) - 02/16/18 03:35 Serum or plasma phosphate measurement (mass/volume) 3.4 mg/dL 2.3-4.7 Magnesium - 02/16/18 03:35 Magnesium 2.0 mg/dL 1.8-2.4 Encounters ACCT No. Visit Date/Time Discharge Status Pt. Type Provider Facility Loc./Unit Complaint [id number] 02/14/2018 22:28:00 02/16/2018 11:01:00 DIS Outpatient SOLOMON RODRIGUEZ, TEE Trevizo [facility] CATH AFIB WITH RVR, HYPOKALEMIA [id number] 04/19/2017 01:09:00 04/20/2017 18:15:00 DIS Inpatient NORI RIVERA DO [facility] 4TH PANCREATITIS [id number] 06/21/2015 14:09:00 06/21/2015 14:45:00 DIS Outpatient AI BOOTH APRN [facility] REHAB R SHOULDER PAIN; ADHESIVE CAPSULITIS;NECK PAIN;CERV [id number] 04/09/2015 10:18:00 04/09/2015 23:59:59 CLS Outpatient AUDI GAY DO [facility] RAD LT SHOULDER PAIN [id number] 03/28/2015 08:52:00 03/28/2015 10:59:00 DIS Outpatient AUDI GAY DO [facility] REHAB L SHOULDER PAIN [id number] 01/02/2015 07:20:00 01/02/2015 08:47:00 DIS Outpatient XUAN RODRIGUEZ, JUNIE Lombardo [facility] CATH PALPITATIONS,AFIB [id number] 12/07/2014 21:45:00 12/08/2014 17:45:00 DIS Inpatient CHELITA LOMELI MD [facility] ICU NEW ONSET ATRIAL FIBRILLATION WITH RVR;CHEST PAIN; [id number] 05/01/2014 10:57:00 05/01/2014 23:59:59 CLS Outpatient CHELITA LOMLEI MD [facility] RAD HX OF HOG W/ONSET OF PAIN [id number] 03/05/2014 14:28:00 03/05/2014 23:59:59 CLS Outpatient CHELITA LOMELI MD [facility] RAD THROAT PAIN,ACUTE BRONCHOLITIS [id number] 10/17/2013 10:27:00 10/17/2013 23:59:59 CLS Outpatient CHELITA LOMELI MD [facility] RAD PERSISTENT COUGH [id number] 07/10/2013 08:30:00 09/20/2013 00:01:00 DIS Outpatient PANKAJ GARZA MD, FACC, FACP CCDS [facility] CARD PALPITATIONS [id number] 08/01/2013 08:00:00 08/01/2013 23:59:59 CLS Outpatient JOHN BAKER DO [facility] RAD ABNORMAL MAMMO [id number] 07/21/2013 01:15:00 07/27/2013 09:55:00 DIS Inpatient CHELITA LOMELI MD [facility] 4TH PANCREATITIS [id number] 06/27/2013 15:05:00 06/27/2013 23:59:59 CLS Outpatient JOHN BAKER DO [facility] RAD SCREENING [id number] 06/20/2013 10:05:00 06/20/2013 23:59:59 CLS Outpatient PANKAJ GARZA MD, FACC, FACP CCDS [facility] LAB HEART PALPITATIONS,PANCREATITIS [id number] 06/13/2013 07:14:00 06/13/2013 23:59:59 CLS Outpatient CHELITA LOMELI MD [facility] RAD HX PANCREATITIS [id number] 05/26/2013 20:01:00 06/01/2013 09:20:00 DIS Inpatient CHELITA LOMELI MD [facility] 4TH ACUTE PANCREATITIS [id number] 03/05/2014 14:29:00 Document Registration [id number] 03/05/2014 14:28:00 Document Registration [id number] 03/05/2014 14:28:00 Document Registration [id number] 09/21/2013 08:00:00 Document Registration [id number] 06/08/2012 14:05:00 Document Registration [id number] 07/27/2011 07:54:00 Document Registration [id number] 07/23/2011 07:31:00 Document Registration [id number] 06/02/2011 14:45:00 Document Registration [id number] 08/06/2010 19:04:00 Document Registration [id number] 03/25/2010 12:57:00 Document Registration [id number] 03/11/2010 08:54:00 Document Registration
[2018-05-09] MEDS ORDERED: DILTIAZEM 25 MG/5 ML INJ (CARDIZEM) VIAL IVP ONE (03:15)
[2018-05-09 03:21] LABS: BASOPHILS % (AUTO) 0 % (0-10); EOSINOPHILS # (AUTO) 0.1 10^3/uL (0.0-0.3); EOSINOPHILS % (AUTO) 1 % (0-10); HEMATOCRIT 45 % (35-52); HEMOGLOBIN 15.1 G/DL (11.5-16.0); LYMPHOCYTES # (AUTO) 2.7 X 10^3 (1.0-4.0); LYMPHOCYTES % (AUTO) 31 % (12-44); MEAN CORPUSCULAR HEMOGLOBIN 29 PG (25-34); MEAN CORPUSCULAR HGB CONC 34 G/DL (32-36); MEAN CORPUSCULAR VOLUME 87 FL (80-99); MEAN PLATELET VOLUME 10.2 FL (7.4-10.4); MONOCYTES # (AUTO) 0.8 X 10^3 (0.0-1.0); MONOCYTES % (AUTO) 9 % (0-12); NEUTROPHILS # (AUTO) 4.9 X 10^3 (1.8-7.8); NEUTROPHILS % (AUTO) 58 % (42-75); PLATELET COUNT 232 10^3/uL (130-400); RED CELL DISTRIBUTION WIDTH 14.1 % (10.0-14.5); WHITE BLOOD COUNT 8.5 10^3/uL (4.3-11.0)
[2018-05-09] MEDS ORDERED: ASPIRIN 81 MG CHEW (CHILDREN'S ASA) PO ONE (03:30)
[2018-05-09 03:33] LABS: INR 1.1 (0.8-1.4); PROTHROMBIN TIME PATIENT 13.7 SEC (12.2-14.7)
[2018-05-09 03:41] LABS: ALANINE AMINOTRANSFERASE 9 U/L (0-55); ALBUMIN 4.2 GM/DL (3.2-4.5); ALKALINE PHOSPHATASE 48 U/L (40-136); BILIRUBIN,TOTAL 0.5 MG/DL (0.1-1.0); BUN/CREATININE RATIO 19; CALCIUM 8.5 MG/DL (8.5-10.1); CARBON DIOXIDE 23 MMOL/L (21-32); CHLORIDE 112 MMOL/L (98-107); CREATININE SERUM 0.81 MG/DL (0.60-1.30); GFR ESTIMATED > 60; GLUCOSE 84 MG/DL (70-105); MAGNESIUM 2.1 MG/DL (1.8-2.4); POTASSIUM 3.4 MMOL/L (3.6-5.0); SODIUM 143 MMOL/L (135-145); TOTAL PROTEIN 6.8 GM/DL (6.4-8.2)
[2018-05-09 03:47] LABS: MYOGLOBIN SERUM 47.8 NG/ML (10.0-92.0)
[2018-05-09 04:04] LABS: BILIRUBIN,URINE NEGATIVE (NEGATIVE); CLARITY,URINE CLEAR; COLOR,URINE YELLOW; GLUCOSE, URINE (UA) NEGATIVE (NEGATIVE); KETONES,URINE NEGATIVE (NEGATIVE); LEUKOCYTE ESTERASE ,URINE NEGATIVE (NEGATIVE); NITRITE,URINE NEGATIVE (NEGATIVE); PH,URINE 8 (5-9); PROTEIN,URINE NEGATIVE (NEGATIVE); UROBILINOGEN,URINE NORMAL (NORMAL)
[2018-05-09] MEDS: DILTIAZEM INJECTION 125 MG in NS (IVPB) 100 ML IV SCH ×2 (04:13→04:18)
--- NOTE | 2018-05-09 04:20 | NUR ---
PT TITRATED TO 10MG/HR PER DR. GUARDADO
[2018-05-09 05:00] LABS: BACTERIA,URINE TRACE /HPF; SQUAMOUS EPITHELIAL CELL,UR RARE /HPF
--- NOTE | 2018-05-09 06:33 | ED Chest Pain ---
General Chief Complaint: Chest Pain Stated Complaint: A-FIB Source: patient Exam Limitations: no limitations History of Present Illness Date Seen by Provider: May 09, 2018 Time Seen by Provider: 03:00 Initial Comments This 58-year-old woman presents to the emergency room with A. fib with RVR and chest pain. She has a history of paroxysmal atrial fibrillation. She is anticoagulated with a Eliquis. She reports her prior episode of RVR last fall felt very similar. 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 Dr. Israel is her primary care provider. Allergies and Home Medications Allergies Coded Allergies: No Known Drug Allergies (Unverified , 08/06/10) Home Medications Apixaban 5 Mg Tablet, 5 MG PO BID Prescribed by: JUNIE MURRAY on 02/16/18 0740 Ascorbic Acid 1,000 Mg Tablet, 1,000 MG PO DAILY, (Reported) Calcium Carbonate 600 Mg Tablet, 1,200 MG PO DAILY, (Reported) Cyanocobalamin (Vitamin B-12) 2,500 Mcg Tab.subl, 2,500 MCG SL DAILY, (Reported) Hydrocortisone Valerate 15 Gm Cream..g., TP TWICE WEEKLY, (Reported) Metoprolol Succinate 25 Mg Tab.er.24h, 25 MG PO DAILY, (Reported) Multivitamin 1 Each Tablet, 1 TAB PO DAILY, (Reported) Nystatin/Triamcinolone 15 Gm Cr, TP TWICE WEEKLY PRN for ROSACEA, (Reported) Patient Home Medication List Home Medication List Reviewed: Yes Review of Systems Review of Systems Constitutional: no symptoms reported EENTM: No Symptoms Reported Respiratory: No Symptoms Reported Cardiovascular: See HPI Gastrointestinal: No Symptoms Reported Genitourinary: No Symptoms Reported Musculoskeletal: no symptoms reported Skin: no symptoms reported Psychiatric/Neurological: No Symptoms Reported Endocrine: No Symptoms Reported Hematologic/Lymphatic: No Symptoms Reported Past Zxbxsyy-Vgzxui-Dqtjzp Hx Patient Social History Recent Foreign Travel: No Contact w/Someone Who Travel: No Recent Hopitalizations: No Immunizations Up To Date Tetanus Booster (TDap): Unknown PED Vaccines UTD: No Date of Influenza Vaccine: Jan 17, 2018 Seasonal Allergies Seasonal Allergies: No Past Medical History Surgeries: Yes (, choley, ) Section, Gallbladder, Tubal Ligation Respiratory: No Cardiac: Yes Atrial Fibrillation, Hypertension Neurological: No 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 2.0oz. 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 as Tested Skin: Normal Color, Warm/Dry Progress/Results/Core Measures Results/Orders Lab Results Laboratory Tests Test 05/09/18 03:11 05/09/18 03:45 Range/Units White Blood Count 8.5 4.3-11.0 10^3/uL Red Blood Count 5.20 4.35-5.85 10^6/uL Hemoglobin 15.1 11.5-16.0 G/DL Hematocrit 45 35-52 % Mean Corpuscular Volume 87 80-99 FL Mean Corpuscular Hemoglobin 29 25-34 PG Mean Corpuscular Hemoglobin Concent 34 32-36 G/DL Red Cell Distribution Width 14.1 10.0-14.5 % Platelet Count 232 130-400 10^3/uL Mean Platelet Volume 10.2 7.4-10.4 FL Neutrophils (%) (Auto) 58 42-75 % Lymphocytes (%) (Auto) 31 12-44 % Monocytes (%) (Auto) 9 0-12 % Eosinophils (%) (Auto) 1 0-10 % Basophils (%) (Auto) 0 0-10 % Neutrophils # (Auto) 4.9 1.8-7.8 X 10^3 Lymphocytes # (Auto) 2.7 1.0-4.0 X 10^3 Monocytes # (Auto) 0.8 0.0-1.0 X 10^3 Eosinophils # (Auto) 0.1 0.0-0.3 10^3/uL Basophils # (Auto) 0.0 0.0-0.1 10^3/uL Prothrombin Time 13.7 12.2-14.7 SEC INR Comment 1.1 0.8-1.4 Activated Partial Thromboplast Time 34 24-35 SEC Sodium Level 143 135-145 MMOL/L Potassium Level 3.4 L 3.6-5.0 MMOL/L Chloride Level 112 H 98-107 MMOL/L Carbon Dioxide Level 23 21-32 MMOL/L Anion Gap 8 5-14 MMOL/L Blood Urea Nitrogen 15 7-18 MG/DL Creatinine 0.81 0.60-1.30 MG/DL Estimat Glomerular Filtration Rate > 60 BUN/Creatinine Ratio 19 Glucose Level 84 70-105 MG/DL Calcium Level 8.5 8.5-10.1 MG/DL Corrected Calcium 8.3 L 8.5-10.1 MG/DL Magnesium Level 2.1 1.8-2.4 MG/DL Total Bilirubin 0.5 0.1-1.0 MG/DL Aspartate Amino Transf (AST/SGOT) 19 5-34 U/L Alanine Aminotransferase (ALT/SGPT) 9 0-55 U/L Alkaline Phosphatase 48 40-136 U/L Myoglobin 47.8 10.0-92.0 NG/ML Troponin I < 0.028 <0.028 NG/ML Total Protein 6.8 6.4-8.2 GM/DL Albumin 4.2 3.2-4.5 GM/DL Urine Color YELLOW Urine Clarity CLEAR Urine pH 8 5-9 Urine Specific [place] 1.010 L 1.016-1.022 Urine Protein NEGATIVE NEGATIVE Urine Glucose (UA) NEGATIVE NEGATIVE Urine Ketones NEGATIVE NEGATIVE Urine Nitrite NEGATIVE NEGATIVE Urine Bilirubin NEGATIVE NEGATIVE Urine Urobilinogen NORMAL NORMAL MG/DL Urine Leukocyte Esterase NEGATIVE NEGATIVE Urine RBC (Auto) NEGATIVE NEGATIVE Urine RBC NONE /HPF Urine WBC NONE /HPF Urine Squamous Epithelial Cells RARE /HPF Urine Crystals NONE /LPF Urine Bacteria TRACE /HPF Urine Casts NONE /LPF Urine Mucus NEGATIVE /LPF Urine Culture Indicated NO My Orders Orders - OKSANA GUARDADO MD Cbc With Automated Diff (05/09/18 03:10) Magnesium (05/09/18 03:10) Chest 1 View, Ap/Pa Only (05/09/18 03:10) Ekg Tracing (05/09/18 03:10) Cardiac Profile 1 (05/09/18 03:10) Comprehensive Metabolic Panel (05/09/18 03:10) Myoglobin Serum (05/09/18 03:10) Protime With Inr (05/09/18 03:10) Partial Thromboplastin Time (05/09/18 03:10) O2 (05/09/18 03:10) Monitor-Rhythm Ecg Trace Only (05/09/18 03:10) Lipid Panel (05/10/18 06:00) Saline Lock/Iv-Start (05/09/18 03:10) Diltiazem Injection (Cardizem Injection) (05/09/18 03:15) Ns (Ivpb) (Sodium C... W/Diltiazem Injec (05/09/18 03:15) Aspirin Chewable Tablet (Baby Aspirin Ch (05/09/18 03:30) Ua Culture If Indicated (05/09/18 03:59) Medications Given in ED Current Medications Medications Dose Ordered Sig/Juanito Route Start Time Stop Time Status Last Admin Dose Admin Diltiazem HCl 10 mg ONCE ONCE IVP 05/09/18 03:15 05/09/18 03:16 DC 05/09/18 04:13 10 MG Vital Signs/I&O 05/09/18 05/09/18 05/09/18 02:57 02:58 03:00 Temp 98.3 Pulse 147 Resp 22 B/P (MAP) 150/114 (126) Pulse Ox 98 98 O2 Delivery Room Air Room Air Room Air Progress Progress Note : Progress Note Patient was treated with a Cardizem bolus and drip. Heart rate improved significantly. Chest pain also improved and was minimal at the time of admission. Case was discussed with Dr. Segal on behalf of Dr. Murray. Patient was admitted to the hospitalist service. Initial ECG Impression Date: May 09, 2018 Initial ECG Impression Time: 03:00 Initial ECG Rate: 133 Initial ECG Rhythm: A Fib/Flutter Initial ECG Impression: Atrial Fibrillation w/RVR Comment Atrial fibrillation with rapid ventricular rate. No overt ST elevation or depression to suggest ischemia. Diagnostic Imaging Diagonstic Imaging: Xray Plain Films/CT/US/NM/MRI: chest Comments Chest x-ray viewed by me and report reviewed. See report below: NAME: DIYA COHEN [facility] REC#: [id number] PT STATUS: ADM IN : 1960 PHYSICIAN: OKSANA GUARDADO MD ADMIT DATE: 05/09/18/ICU Signed Date of Exam: 05/09/18 CHEST 1 VIEW, AP/PA ONLY INDICATION: Chest pain Portable upright AP view of the chest is obtained with comparison made to the study of 02/14/2018. FINDINGS: Heart size and pulmonary vascularity are within normal limits, and the lungs are clear, bilaterally. IMPRESSION: Unremarkable chest. Dictated by: Dictated on workstation # [id number] Dict: 05/09/18 0716 Trans: 05/09/18 0758 Interpreted by: INGRID SHIELDS MD Electronically signed by: INGRID SHIELDS MD 05/09/18 0758 Departure Communication (Admissions) Time/Spoke to Admitting Phy: 06:12 Dr. Alcocer Time/Spoke to Consulting Phy: 05:50 Dr. Segal Impression Primary Impression: Atrial fibrillation with RVR Additional Impression: Chest pain Qualified Codes: R07.9 - Chest pain, unspecified Disposition: ADMITTED INPATIENT Condition: Improved Admissions Decision to Admit Reason: Admit from ER (General) Decision to Admit/Date: May 09, 2018 Time/Decision to Admit Time: 03:10 Departure-Patient Inst. Referrals: CHELITA ISRAEL MD (PCP/Family) Primary Care Physician OKSANA GUARDADO MD May 09, 2018 06:33
--- NOTE | 2018-05-09 07:18 | Diagnostic Imaging Report ---
INDICATION: Chest pain Portable upright AP view of the chest is obtained with comparison made to the study of 02/14/2018. FINDINGS: Heart size and pulmonary vascularity are within normal limits, and the lungs are clear, bilaterally. IMPRESSION: Unremarkable chest. Dictated by: Dictated on workstation # [id number]
--- NOTE | 2018-05-09 07:47 | NUR ---
PT ADMITTED TO ICU 6 VIA STRETCHER W/ STAFF AND S.O. PT ASSISTED INTO BED AND PLACED ON MONITORS. ORIENTED PT TO SURROUNDINGS. NO QUESTIONS/CONCERNS VOICED. WILL CONT TO MONITOR.
[2018-05-09] MEDS ORDERED: NS IV 1000 ML 1,000 ML IV SCH (08:00)
[2018-05-09] MEDS ORDERED: DILTIAZEM 125 MG/NS 100 ML IV SCH ×2 (08:00)
[2018-05-09] MEDS ORDERED: ENOXAPARIN 60 MG/0.6 ML (LOVENOX) SYR SC ONE ×2 (08:45)
[2018-05-09] MEDS ORDERED: AMIODARONE FOR BOLUS 150 MG in D5W 100 ML IVPB 100 ML IV ONE ×4 (08:45)
[2018-05-09] MEDS ORDERED: AMIODARONE INJECTION 450 MG in D5W IV SOLUTION (EXCEL) 250 ML IV SCH ×4 (08:45)
--- NOTE | 2018-05-09 08:51 | Consultation-Cardiology ---
HPI-Cardiology Cardiology Consultation Date of Consultation 05/09/18 Date of Admission Time Seen by Provider: 08:46 Indication: chest pain, atrial fibrillation HPI 58 years old a lady with history of paroxysmal atrial fibrillation and recurrent chest pain. Started to have palpitation chest pain around 2 in the morning. Came into the emergency room and noted to be in atrial fibrillation with rapid ventricular response, she described the pain as dull achiness feeling a brick on her chest with pain radiating to his left shoulder and left arm. Pain has improved after starting nitroglycerin still have mild chest discomfort. Admit having shortness of breath and palpitation feeling her heart racing. No syncope or near syncopal episode. Denied any smoking or alcohol use. Had workup done in the past including cardiac catheterization done 4 years ago Home Medications & Allergies Allergies: Coded Allergies: No Known Drug Allergies (Unverified , 08/06/10) Home Medication List Reviewed: Yes ELM-Zyvnfw-Syxauf Hx Patient Social History Marital Status: Employed/Student: employed Alcohol Use: Denies Use Recreational Drug Use: No Smoking Status: Never a Smoker Recent Foreign Travel: No Recent Infectious Disease Expo: No Recent Hopitalizations: No Immunizations Up To Date Tetanus Booster (TDap): Unknown Date of Influenza Vaccine: Jan 17, 2018 Past Medical History past medical history as described below Family Medical History Significant Family History: No Pertinent Family Hx Family History: Cancer 03 MOTHER Family history: Diabetes mellitus 03 FATHER Review of Systems Constitutional: see HPI, malaise EENTM: see HPI, no symptoms reported Respiratory: see HPI; No cough; dyspnea on exertion; No hemoptysis, No orthopnea, No phlegm, No short of breath, No stridor, No wheezing, No other Cardiovascular: see HPI, chest pain; No edema, No Hx of Intervention; palpitations; No syncope, No vascular heart diseas, No other Gastrointestinal: no symptoms reported, see HPI Genitourinary: no symptoms reported, see HPI Musculoskeletal: no symptoms reported, see HPI Skin: no symptoms reported, see HPI Psychiatric/Neurological: No Symptoms Reported, See HPI Reviewed Test Results Reviewed Test Results Lab Laboratory Tests Test 05/09/18 03:11 05/09/18 03:45 Range/Units White Blood Count 8.5 4.3-11.0 10^3/uL Red Blood Count 5.20 4.35-5.85 10^6/uL Hemoglobin 15.1 11.5-16.0 G/DL Hematocrit 45 35-52 % Mean Corpuscular Volume 87 80-99 FL Mean Corpuscular Hemoglobin 29 25-34 PG Mean Corpuscular Hemoglobin Concent 34 32-36 G/DL Red Cell Distribution Width 14.1 10.0-14.5 % Platelet Count 232 130-400 10^3/uL Mean Platelet Volume 10.2 7.4-10.4 FL Neutrophils (%) (Auto) 58 42-75 % Lymphocytes (%) (Auto) 31 12-44 % Monocytes (%) (Auto) 9 0-12 % Eosinophils (%) (Auto) 1 0-10 % Basophils (%) (Auto) 0 0-10 % Neutrophils # (Auto) 4.9 1.8-7.8 X 10^3 Lymphocytes # (Auto) 2.7 1.0-4.0 X 10^3 Monocytes # (Auto) 0.8 0.0-1.0 X 10^3 Eosinophils # (Auto) 0.1 0.0-0.3 10^3/uL Basophils # (Auto) 0.0 0.0-0.1 10^3/uL Prothrombin Time 13.7 12.2-14.7 SEC INR Comment 1.1 0.8-1.4 Activated Partial Thromboplast Time 34 24-35 SEC Sodium Level 143 135-145 MMOL/L Potassium Level 3.4 L 3.6-5.0 MMOL/L Chloride Level 112 H 98-107 MMOL/L Carbon Dioxide Level 23 21-32 MMOL/L Anion Gap 8 5-14 MMOL/L Blood Urea Nitrogen 15 7-18 MG/DL Creatinine 0.81 0.60-1.30 MG/DL Estimat Glomerular Filtration Rate > 60 BUN/Creatinine Ratio 19 Glucose Level 84 70-105 MG/DL Calcium Level 8.5 8.5-10.1 MG/DL Corrected Calcium 8.3 L 8.5-10.1 MG/DL Magnesium Level 2.1 1.8-2.4 MG/DL Total Bilirubin 0.5 0.1-1.0 MG/DL Aspartate Amino Transf (AST/SGOT) 19 5-34 U/L Alanine Aminotransferase (ALT/SGPT) 9 0-55 U/L Alkaline Phosphatase 48 40-136 U/L Myoglobin 47.8 10.0-92.0 NG/ML Troponin I < 0.028 <0.028 NG/ML Total Protein 6.8 6.4-8.2 GM/DL Albumin 4.2 3.2-4.5 GM/DL Urine Color YELLOW Urine Clarity CLEAR Urine pH 8 5-9 Urine Specific [place] 1.010 L 1.016-1.022 Urine Protein NEGATIVE NEGATIVE Urine Glucose (UA) NEGATIVE NEGATIVE Urine Ketones NEGATIVE NEGATIVE Urine Nitrite NEGATIVE NEGATIVE Urine Bilirubin NEGATIVE NEGATIVE Urine Urobilinogen NORMAL NORMAL MG/DL Urine Leukocyte Esterase NEGATIVE NEGATIVE Urine RBC (Auto) NEGATIVE NEGATIVE Urine RBC NONE /HPF Urine WBC NONE /HPF Urine Squamous Epithelial Cells RARE /HPF Urine Crystals NONE /LPF Urine Bacteria TRACE /HPF Urine Casts NONE /LPF Urine Mucus NEGATIVE /LPF Urine Culture Indicated NO Physical Exam Vital Signs Vital Signs - First Documented 05/09/18 05/09/18 02:57 10:20 Temp 98.3 Pulse 147 Resp 22 B/P (MAP) 150/114 (126) Pulse Ox 98 O2 Delivery Room Air O2 Flow Rate 4.00 Capillary Refill : Less Than 3 Seconds Height, Weight, BMI Height: 5'2.00" Weight: 141lbs. 2.0oz. 64.008782ih; 25.8 BMI Method:Stated General Appearance: No Apparent Distress, WD/WN Eyes: Bilateral Eye Normal Inspection, Bilateral Eye PERRL, Bilateral Eye EOMI HEENT: PERRL/EOMI, TMs Normal, Normal ENT Inspection, Pharynx Normal Neck: Full Range of Motion, Normal Inspection, Non Tender, Supple, Carotid Bruit Respiratory: Chest Non Tender, Lungs Clear, Normal Breath Sounds, No Accessory Muscle Use, No Respiratory Distress Cardiovascular: No Edema, No Gallop, No JVD, No Murmur, Normal Peripheral Pulses, Systolic Murmur, Irregularly Irregular Gastrointestinal: Normal Bowel Sounds, No Organomegaly, No Pulsatile Mass, Non Tender, Soft Back: Normal Inspection, No CVA Tenderness, No Vertebral Tenderness Extremity: Normal Capillary Refill, Normal Inspection, Normal Range of Motion, Non Tender, No Calf Tenderness, No Pedal Edema Neurologic/Psychiatric: Alert, Oriented x3, No Motor/Sensory Deficits, Normal Mood/Affect Skin: Normal Color, Warm/Dry Lymphatic: No Adenopathy A/P-Cardiology Admission Diagnosis Chest pain Chronic atrial fibrillation Coronary artery disease Hypertension Assessment/Plan Chest pain nonspecific etiology resembling angina, probably secondary to tachycardia, still having mild chest pain, EKG did not show any acute changes. Cardiac enzymes first set were negative, a repeat troponin and myoglobin and continue to monitor Paroxysmal atrial fibrillation, had an episode of atrial fibrillation in January 2018, currently back in atrial fibrillation. Heart rate is better controlled on Cardizem drip, patient did not skip any doses of Eliquis, took her last dose last evening. I am planning to proceed with electrical cardioversion today. [id number] score of 2, yearly risk of stroke without oral anticoagulation is 2.2 percent. Patient has been maintained on Eliquis History of coronary artery disease, cardiac catheterization done in November 2014 showing mild disease in the distal LAD nonobstructive disease. Palpitations secondary to atrial fibrillation. Continue to monitor Hypertension, controlled at this time. Continue to monitor History of pancreatitis in 2013 Strong family history of heart disease Addendum on May 09, 2018 at 415 p.m. Patient underwent cardioversion this morning, she still in sinus rhythm, feeling better, no further episodes of chest pain. Maintaining sinus rhythm, okay for discharge on amiodarone in addition to her current medication, follow- up as an outpatient Clinical Quality Measures AMI/AHF: ASA po Prior to arrival: JUNIE Garcia MD May 09, 2018 08:51
[2018-05-09] MEDS ORDERED: proPOfol 200 MG/20 ML (DIPRIVAN) VIAL IV ONE (08:52)
--- NOTE | 2018-05-09 08:52 | Cardiac Procedure Note-CS/ASA ---
Pre-Procedure Note Pre-Op Procedure Note H&P Reviewed The H&P was reviewed, patient examined and no changes noted. Date H&P Reviewed: May 09, 2018 Time H&P Reviewed: 08:52 Conscious Sedation Pre-Proced Time 08:52 ASA Score 3 For ASA 3 and 4: Consider anesthesia and medical clearance. Also, for patients with a history of failed moderate sedation consider anesthesia. Airway Lungs Heart ASA score ASA 1: a normal healthy patient ASA 2: a patient with a mild systemic disease (mid diabetes, controlled hypertension, obesity x ASA 3: a patient with a severe systemic disease that limits activity (angina , COPD, prior Myocardial infarction) ASA 4: a patient with an incapacitating disease that is a constant threat to life (CHF, renal failure) ASA 5: a moribund patient not expected to survive 24 hrs. (ruptured aneurysm) ASA 6: a declared brain patient whose organs are being harvested. For emergent operations, add the letter E after the classification Mallampati Classification Grade 3 Sedation Plan Analgesia, Amnesia, Plan communicated to team members, Discussed options with patient/fam, Discussed risks with patient/fam The patient is an appropriate candidate to undergo the planned procedure, sedation, and anesthesia. The patient immediately re-assessed prior to indication. JUNIE GOVEA MD May 09, 2018 08:52
[2018-05-09] MEDS ORDERED: MIDAZOLAM 2 MG/2 ML (VERSED) VIAL ONE ×2 (08:53→09:17)
[2018-05-09] MEDS ORDERED: APIX5TAB PO (08:55)
[2018-05-09] MEDS ORDERED: CALC-6 PO (08:57)
[2018-05-09] MEDS ORDERED: CYAN5000 SL (08:57)
[2018-05-09] MEDS ORDERED: PROPOFOL DRIP (ICU) 0 ML IV ONE (08:57)
--- NOTE | 2018-05-09 08:59 | NUR ---
PATIENT HAD A LIST OF HER MEDICATIONS AND VERIFIED HOW SHE IS TAKING THEM. I WAS ABLE TO COMPARE THE PRESCRIPTIONS TO THE EXT MED HX.
[2018-05-09] MEDS ORDERED: fentaNYL INJECTION 100 MCG/2 ML AMP ONE (09:05)
[2018-05-09] MEDS ORDERED: LIDOCAINE 2% VISCOUS 15 ML UDC PO ONE (09:15)
[2018-05-09 09:31] LABS: MYOGLOBIN SERUM 46.6 NG/ML (10.0-92.0)
--- NOTE | 2018-05-09 09:31 | History & Physical-Hospitalist ---
History of Present Illness HPI/Chief Complaint CC: Chest pain with AF w/RVR HPI: This is a 58yoWF clinic patient of Dr Murray and Dr Bucio who presents to the ER w/CP and found to have AF w/RVR. Patient has a h/o new onset AF 02/03 and spontaneously converted to NSR and maintained on Eliquis and BB but had a recurrence in the issue again today. I conferred with Dr Murray and he will perform cardioversion on the patient today and evaluate response. Source: patient, old records Exam Limitations: no limitations Date Seen 05/09/18 Time Seen by a Provider: 09:15 Attending Physician Gi Alcocer MD PCP Pedro Israel MD Referring Physician Date of Admission May 09, 2018 at 06:26 Home Medications & Allergies Home Medications Reviewed patient Home Medication Reconciliation performed by pharmacy medication reconciliations surgery technician and/or nursing. Patients Allergies have been reviewed. 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[employer]) Alcohol Use: Denies Use Recreational Drug Use: No Smoking Status: Never a Smoker Recent Foreign Travel: No Contact w/other who traveled: No Recent Hopitalizations: No Recent Infectious Disease Expo: No Immunizations Up To Date Tetanus Booster (TDap): Unknown Pediatric: Yes Date of Influenza Vaccine: Jan 17, 2018 Seasonal Allergies Seasonal Allergies: No Past Medical History Surgeries: Section, Gallbladder, Tubal Ligation Cardiac: Atrial Fibrillation, Hypertension : No Reproductive: No Sexually Transmitted Disease: No HIV/AIDS: No Menopausal Gastrointestinal: Pancreatitis History of Blood Disorders: No Adverse Reaction to Blood Pelletier: No Family History Cancer 03 MOTHER Family history: Diabetes mellitus 03 FATHER No Pertinent Family Hx Review of Systems Constitutional: see HPI, weakness EENTM: no symptoms reported Respiratory: dyspnea on exertion Cardiovascular: chest pain, palpitations Gastrointestinal: nausea Genitourinary: no symptoms reported Musculoskeletal: no symptoms reported Skin: no symptoms reported Psychiatric/Neurological: No Symptoms Reported All Other Systems Reviewed Negative Unless Noted: Yes Physical Exam Physical Exam Vital Signs Vital Signs - First Documented 05/09/18 02:57 Temp 98.3 Pulse 147 Resp 22 B/P (MAP) 150/114 (126) Pulse Ox 98 O2 Delivery Room Air Capillary Refill : Less Than 3 Seconds Height, Weight, BMI Height: 5'2.00" Weight: 141lbs. 2.0oz. 64.314503ct; 25.8 BMI Method:Stated General Appearance: WD/WN, Anxious, Chronically ill, Mild Distress, Thin Eyes: Bilateral Eye Normal Inspection, Bilateral Eye PERRL HEENT: PERRL/EOMI, Normal ENT Inspection, Pharynx Normal Neck: Full Range of Motion, Normal Inspection, Non Tender, Supple, Carotid Bruit Respiratory: Chest Non Tender, Lungs Clear, Normal Breath Sounds, No Accessory Muscle Use, No Respiratory Distress Cardiovascular: No Edema, No Gallop, No JVD, No Murmur, Normal Peripheral Pulses, Irregularly Irregular, Tachycardia Gastrointestinal: Normal Bowel Sounds, No Organomegaly, No Pulsatile Mass, Non Tender, Soft Back: Normal Inspection, No CVA Tenderness, No Vertebral Tenderness Extremity: Normal Capillary Refill, Normal Inspection, Normal Range of Motion, Non Tender, No Calf Tenderness, No Pedal Edema Neurologic/Psychiatric: Alert, Oriented x3, No Motor/Sensory Deficits, Normal Mood/Affect Skin: Normal Color, Warm/Dry Lymphatic: No Adenopathy Results Results/Procedures Labs Laboratory Tests 05/09/18 03:11 Patient resulted labs reviewed. Assessment/Plan Admission Diagnosis Assessment: AF w/RVR Chest pain with normal cath 2014 HTN Hypokalemia h/o pancreatitis Plan: Cardioversion Monitor closely Admission Status: Inpatient Order (span 2 midnights) Reason for Inpatient Admission: Recurrent AF w/RVR Diagnosis/Problems Diagnosis/Problems (1) Atrial fibrillation with RVR Status: Acute (2) Chest pain Status: Acute Qualifiers: Chest pain type: unspecified Qualified Codes: R07.9 - Chest pain, unspecified (3) Hypertension Status: Acute Qualifiers: Hypertension type: essential hypertension Qualified Codes: I10 - Essential (primary) hypertension (4) Hypokalemia Status: Acute Clinical Quality Measures AMI/AHF: ASA po Prior to arrival: NORI Tello DO May 09, 2018 09:30
--- NOTE | 2018-05-09 10:32 | Cardioversion ---
Cardioversion PROCEDURE PHYSICIAN: Junie Murray DATE OF PROCEDURE: 05/09/18 DIRECT EXTERNAL ELECTRICAL CARDIOVERSION: Indications: Atrial Fibrillation with rapid ventricular rate Preoperative diagnoses: Atrial Fibrillation with rapid ventricular rate Postoperative diagnosis: Sinus rhythm, Successful Electrical Cardioversion Anesthesia: By Anesthesia services Complications: None Procedure Details: The patient was brought the labor and employment paralegal after informed consent was taken, all the risks and complications were explained including the risk of stroke. Electrical cardioversion was carried out with anesthesia support with propofol. 200 joules of synchronized shock was delivered through external patches which promptly restored sinus rhythm. The patient tolerated the procedure well. Conclusions: Successful electrical cardioversion to terminate atrial fibrillation JUNIE MURRAY MD May 09, 2018 10:32
--- NOTE | 2018-05-09 10:36 | Anesthesia-Procedure Note ---
Procedures/Interventions Procedure Start/Stop/Diagnosis Date of Procedure: May 09, 2018 Start Time: 10:20 Referring Physician: Terri Preprocedural Diagnosis: AFIB Brief History Sedation explained to patient. Allergies verified. Removable dental appliances out. Suction available, NC 4L 02. Monitors on and functional. Stop Time: 10:25 EDSON/Cardioversion Anesthesia Type: MAC ASA Class: 3 Medications Propofol 60mg IV given to sedate for cardioversion. One shock initiated, with successful conversion. Pt respiratory pattern regular, and SP02 remained 100% throughout. Report to RN. Monitors and Equipment: BP Cuff - Right, Continuous EKG, End Tidal CO2, IV, Pulse Oximeter, V Lead EKG MAGO SCHILLING CRNA May 09, 2018 10:36
--- NOTE | 2018-05-09 10:37 | Anesthesia-General Post-Op ---
MAC Patient Condition Mental Status/LOC: Same as Preop Cardiovascular: Satisfactory Nausea/Vomiting: Absent Respiratory: Satisfactory Pain: Controlled Complications: Absent Post Op Complications Complications None Follow Up Care/Instructions Patient Instructions None needed. Anesthesiology Discharge Order Discharge Order Patient is doing well, no complaints, stable vital signs, no apparent adverse anesthesia problems. No complications reported per nursing. MAGO SCHILLING CRNA May 09, 2018 10:37
[2018-05-09] MEDS ORDERED: AMIO200T4 PO (16:13)
[2018-05-09] MEDS ORDERED: AMIODARONE 200 MG (CORDARONE) TAB PO SCH (16:15)
--- NOTE | 2018-05-09 16:15 | Clinic Account Progress/Dx ---
Clinic Account Progress/Dx DIAGNOSIS: Date Seen by Provider: May 09, 2018 Time Seen by Provider: 16:14 Chest pain Chronic atrial fibrillation Coronary artery disease Hypertension JUNIE GOVEA MD May 09, 2018 16:14
--- NOTE | 2018-05-09 16:33 | NUR ---
DR GOVEA CALLED THIS RN, PT TO RECEIVE DOSE OF AMIODARONE AND DC HOME PER DR DAVIDSON.
--- NOTE | 2018-05-09 17:30 | NUR ---
DIYA COHEN demonstrates understanding of discharge instructions and accurately returns instructions upon questioning. Copy of Post-Discharge Instructions and Medication Discharge Instructions given to PT. DIYA COHEN is able to manage continuing needs after discharge. Patients belongings returned to PT. Skin dry and intact; no breakdown noted. Patient discharged from [facility] on 05/09/18 at 1730. DIYA COHEN left floor via , accompanied by STAFF/.
[2018-05-09] MEDS ORDERED: APIXABAN 5 MG (ELIQUIS) TABLET PO SCH (21:00)
[2018-05-10] MEDS ORDERED: ASPIRIN 81 MG CHEW (CHILDREN'S ASA) PO SCH (09:00)
--- OUTSIDE RECORDS SUMMARY | 2018-05-10 15:24 | XMS REPORT | Continuity of Care Document ---
Author Author [facility] Organization [facility] Address Unknown Phone Unavailable Allergies Active Description Code Type Severity Reaction Onset Reported/Identified Relationship to Patient Clinical Status Yes No Known Drug Allergies [id number] Drug Allergy Unknown N/A 08/06/2010 Medications There [...] MD R Ot 414.01 CORONARY ATHEROSCLEROSIS OF [place] CORON 12/08/2014 CHELITA LOMELI MD Ot 427.31 [...] MD Ot I25.10 ATHSCL HEART DISEASE OF [place] CORONARY 01/02/2015 JUNIE GOVEA MD Ot I48.0 PAROXYSMAL ATRIAL FIBRILLATION 01/02/2015 JUNIE GOVEA MD Ot R00.2 PALPITATIONS 01/02/2015 JUNIE GOVEA MD Ot R07.9 CHEST PAIN, UNSPECIFIED 01/02/2015 JUNIE GOVEA MD Ot V58.69 OTH MED,LT,CURRENT USE 01/02/2015 JUNIE GOVEA MD Ot Z79.899 OTHER LONGTERM (CURRENT) DRUG THERAPY 02/01/2015 Ot 611.72 02/01/2015 [...] CHELITA R Ot 577.0 04/26/2015 GREG RODRIGUEZ [facility], ALI FACP CCDS Ot 577.0 04/26/2015 GREG RODRIGUEZ [facility], ALI FACP CCDS Ot 785.1 04/26/2015 [...] MD Ot I25.10 ATHSCL HEART DISEASE OF [place] CORONARY 02/16/2018 TEE CARBAJAL MD Ot I48.0 PAROXYSMAL ATRIAL FIBRILLATION 02/16/2018 TEE CARBAJAL MD Ot Z82.49 FAMILY HX OF ISCHEM HEART DIS AND OTH DI 02/18/2018 TEE CARBAJAL MD Ot E87.6 HYPOKALEMIA 02/18/2018 TEE CARBAJAL MD Ot I10 ESSENTIAL (PRIMARY) HYPERTENSION 02/18/2018 TEE CARBAJAL MD Ot I25.10 ATHSCL HEART DISEASE OF [place] CORONARY 02/18/2018 TEE CARBAJAL MD Ot I48.0 PAROXYSMAL ATRIAL FIBRILLATION 02/18/2018 TEE CARBAJAL MD Ot Z82.49 FAMILY HX OF ISCHEM HEART DIS AND OTH DI 02/21/2018 TEE CARBAJAL MD Ot E87.6 HYPOKALEMIA 02/21/2018 TEE CARBAJAL MD Ot I10 ESSENTIAL (PRIMARY) HYPERTENSION 02/21/2018 TEE CARBAJAL MD Ot I25.10 ATHSCL HEART DISEASE OF [place] CORONARY 02/21/2018 TEE CARBAJAL MD Ot I48.0 [...] NRG Blood erythrocyte morphology finding identification NORMAL [facility] Comprehensive metabolic panel - 04/18/17 22:56 Serum [...] - 04/19/17 01:44 Bacterial blood culture NG [facility] Complete blood count (CBC) with automated white [...] - 01:50 MRSA SCREEN RESULT MRSA ISOLATED [facility] Lipid 1996 panel - 02/15/18 06:34 Serum [...] Status Pt. Type Provider Facility Loc./Unit Complaint [id number] 02/14/2018 22:28:00 02/16/2018 11:01:00 DIS Outpatient SOLOMON RODRIGUEZ, TEE Trevizo [facility] CATH AFIB WITH RVR, HYPOKALEMIA [id number] 04/19/2017 01:09:00 04/20/2017 18:15:00 DIS Inpatient NORI RIVERA DO [facility] 4TH PANCREATITIS [id number] 06/21/2015 14:09:00 06/21/2015 14:45:00 DIS Outpatient AI BOOTH APRN [facility] REHAB R SHOULDER PAIN; ADHESIVE CAPSULITIS;NECK PAIN;CERV [id number] 04/09/2015 10:18:00 04/09/2015 23:59:59 CLS Outpatient AUDI GAY DO [facility] RAD LT SHOULDER PAIN [id number] 03/28/2015 08:52:00 03/28/2015 10:59:00 DIS Outpatient AUDI GAY DO [facility] REHAB L SHOULDER PAIN [id number] 01/02/2015 07:20:00 01/02/2015 08:47:00 DIS Outpatient XUAN RODRIGUEZ, JUNIE Lombardo [facility] CATH PALPITATIONS,AFIB [id number] 12/07/2014 21:45:00 12/08/2014 17:45:00 DIS Inpatient CHELITA LOMELI MD [facility] ICU NEW ONSET ATRIAL FIBRILLATION WITH RVR;CHEST PAIN; [id number] 05/01/2014 10:57:00 05/01/2014 23:59:59 CLS Outpatient CHELITA LOMELI MD [facility] RAD HX OF HOG W/ONSET OF PAIN [id number] 03/05/2014 14:28:00 03/05/2014 23:59:59 CLS Outpatient CHELITA LOMELI MD [facility] RAD THROAT PAIN,ACUTE BRONCHOLITIS [id number] 10/17/2013 10:27:00 10/17/2013 23:59:59 CLS Outpatient CHELITA LOMELI MD [facility] RAD PERSISTENT COUGH [id number] 07/10/2013 08:30:00 09/20/2013 00:01:00 DIS Outpatient PANKAJ GARZA MD, FACC, FACP CCDS [facility] CARD PALPITATIONS [id number] 08/01/2013 08:00:00 08/01/2013 23:59:59 CLS Outpatient JOHN BAKER DO [facility] RAD ABNORMAL MAMMO [id number] 07/21/2013 01:15:00 07/27/2013 09:55:00 DIS Inpatient CHELITA LOMELI MD [facility] 4TH PANCREATITIS [id number] 06/27/2013 15:05:00 06/27/2013 23:59:59 CLS Outpatient JOHN BAKER DO [facility] RAD SCREENING [id number] 06/20/2013 10:05:00 06/20/2013 23:59:59 CLS Outpatient PANKAJ GARZA MD, FACC, FACP CCDS [facility] LAB HEART PALPITATIONS,PANCREATITIS [id number] 06/13/2013 07:14:00 06/13/2013 23:59:59 CLS Outpatient CHELITA LOMELI MD [facility] RAD HX PANCREATITIS [id number] 05/26/2013 20:01:00 06/01/2013 09:20:00 DIS Inpatient CHELITA LOMELI MD [facility] 4TH ACUTE PANCREATITIS [id number] 05/09/2018 10:38:00 Document Registration [id number] 03/05/2014 14:29:00 Document Registration [id number] 03/05/2014 14:28:00 Document Registration [id number] 03/05/2014 14:28:00 Document Registration [id number] 09/21/2013 08:00:00 Document Registration [id number] 06/08/2012 14:05:00 Document Registration [id number] 07/27/2011 07:54:00 Document Registration [id number] 07/23/2011 07:31:00 Document Registration [id number] 06/02/2011 14:45:00 Document Registration [id number] 08/06/2010 19:04:00 Document Registration [id number] 03/25/2010 12:57:00 Document Registration [id number] 03/11/2010 08:54:00 Document Registration
== END 2018-05-09 17:30 | disposition home or self-care (01) ==
LOC: EDUNIT# 02:46 → ER 02:49 → ICU 06:26 → UNDOADMIN 06:26 → CATH 06:26 → ICU 06:26 → UNDODISIN 17:30 → CATH 17:30
PROVIDERS: ATTEND Family Medicine
DX: R07.9 Chest pain, unspecified (principal); I48.2 Chronic atrial fibrillation; I25.10 Atherosclerotic heart disease of native coronary artery without angina pectoris; I10 Essential (primary) hypertension; E87.6 Hypokalemia; Z87.19 Personal history of other diseases of the digestive system; Z82.49 Family history of ischemic heart disease and other diseases of the circulatory system; Z79.01 Long term (current) use of anticoagulants; Z79.899 Other long term (current) drug therapy
CPT/HCPCS: 36415; 71045; 80053; 81000; 83735; 83874; 84484; 85025; 85610; 85730; 87081; 93005; 93041

== ENCOUNTER → 2018-05-25 | Outpatient (CLI) | payer OTHER ==
[~2018-05-25] VITALS: Ht 157.5 cm; Wt 64.0 kg
[~2018-05-25] MED LIST changes: +AMIO200T4 PO; +CALC-6 PO; +CATHETER FLUSH 10 ML SYR IV PRN; +CYAN5000 SL; +REGADENOSON 0.4 MG/5 ML SYR (LEXISCAN) IV ONE
[2018-05-25 13:22] VITALS: BP 132/75
--- NOTE | 2018-05-26 00:42 | STRESS TEST ---
DATE OF SERVICE: 05/25/2018 LEXISCAN MYOVIEW STRESS TEST REPORT REFERRING PHYSICIAN: Dr. Israel. Baseline heart rate is 57. Baseline blood pressure 136/87. Baseline EKG is sinus rhythm with no ischemic changes. In summary, the patient was injected with 10.73 mCi of technetium-99 Myoview and the resting images were obtained. Then, the patient received 0.4 mg of Lexiscan followed by 29.9 mCi of technetium-99 Myoview. Throughout the test, there were no EKG changes. The resting and stress images were reviewed and compared in the short axis, horizontal long axis, and vertical long axis views. Review of the images showed good radiotracer uptake with no significant ischemia or infarction. SSS is 0. TID value 0.93. On the gated images, the left ventricle appeared to be in normal size with normal contractility. Calculated ejection fraction 75%. CONCLUSION: 1. The patient tolerated Lexiscan well. 2. No ischemia or infarction on SPECT images. 3. Normal left ventricular size with normal contractility. Calculated ejection fraction is 75%. Job ID: [id number] DocumentID: [id number] Dictated Date: 05/25/2018 17:30:58 Beer Merchant Date: 05/26/2018 00:41:15 Dictated By: JUNIE GOVEA MD
== END ==
LOC: CARD 11:33
PROVIDERS: ATTEND Internal Medicine Cardiovascular Disease
DX: I48.91 Unspecified atrial fibrillation (principal); R07.89 Other chest pain; I25.10 Atherosclerotic heart disease of native coronary artery without angina pectoris; R00.2 Palpitations
CPT/HCPCS: 78452; 93017

== ENCOUNTER 2018-06-10 09:58 | Emergency (ER) | payer OTHER ==
[~2018-06-10] VITALS: Ht 157.5 cm; Wt 64.4 kg
[~2018-06-10 09:58] MED LIST changes: -CATHETER FLUSH 10 ML SYR IV PRN; -REGADENOSON 0.4 MG/5 ML SYR (LEXISCAN) IV ONE
[2018-06-10] MEDS ORDERED: FLEC50TA PO (10:42)
[2018-06-10] MEDS ORDERED: LISI-556 PO (10:42)
--- NOTE | 2018-06-10 11:20 | ED Integumentary General ---
General Chief Complaint: Allergic Reaction Stated Complaint: RASH Nursing Triage Note: PT PTRESENTS TO ED WITH COMPLAINTS OF RASH ON FOREARMS AND CHEST STARTING LAST NIGHT. PT ALSO REPORTS FELT LIKE HER HR WAS TOO SLOW AND VERY TIRED/LETHARGIC. PT DENIES ITCHING OR PAIN RELATED TO RASH. PT REPORTS SHE STARTED TWO NEW MEDICATIONS ON 06/07 FLECAINIDE AND LISINOPRIL. PT REPORTS SHE WAS WORRIED IT WAS A RECATION TO HER MEDICATIONS. PT STATES SHE DID NOT TAKE THOSE MEDICATIONS THIS MORNING AND SHE DOESNT FEEL NEARLY DROWSEY/LETHARGIC. Source: patient Exam Limitations: no limitations History of Present Illness Date Seen by Provider: Jun 10, 2018 Time Seen by Provider: 11:05 Initial Comments 58-year-old female who presents to the emergency room with complaints of rash on her forearms bilaterally, neck, chest that started last night. She reports that Dr. Murray started her on flecainide and lisinopril on 06/07 has feelings of malaise and feeling like her heart rate was too slow and not giving her enough energy. She has not had any way to monitor her heart rate at home, she denies any shortness of breath, nausea, vomiting chest pain, dizziness. Timing/Duration: yesterday Location: torso (and neck), extremities (upper) Associated Symptoms: rash Allergies and Home Medications Allergies Coded Allergies: No Known Drug Allergies (Unverified , 08/06/10) Home Medications Apixaban 5 Mg Tablet, 5 MG PO BID, (Reported) Ascorbic Acid 1,000 Mg Tablet, 1,000 MG PO DAILY, (Reported) Calcium Carbonate/Vitamin D3 1 Each Tablet, 2 TAB PO DAILY, (Reported) Cyanocobalamin (Vitamin B-12) 5,000 Mcg Tab.subl, 5,000 MCG SL DAILY, (Reported) Flecainide Acetate 50 Mg Tablet, 50 MG PO BID, (Reported) Lisinopril 5 Mg Tablet, 5 MG PO DAILY, (Reported) Metoprolol Succinate 25 Mg Tab.er.24h, 25 MG PO DAILY, (Reported) Multivitamin 1 Each Tablet, 1 TAB PO DAILY, (Reported) Nystatin/Triamcinolone 15 Gm Cr, TP TWICE WEEKLY PRN for ROSACEA, (Reported) Patient Home Medication List Home Medication List Reviewed: Yes Review of Systems Review of Systems Constitutional: see HPI, malaise Cardiovascular: see HPI, palpitations Skin: see HPI, rash All Other Systems Reviewed Negative Unless Noted: Yes Past Okkzdju-Pudxqt-Tcnukt Hx Past Med/Social Hx: Reviewed Nursing Past Med/Soc Hx Patient Social History Alcohol Use: Denies Use Recreational Drug Use: No Smoking Status: Never a Smoker Recent Foreign Travel: No Contact w/Someone Who Travel: No Recent Infectious Disease Expo: No Recent Hopitalizations: Yes Physical Abuse: No Sexual Abuse: No Mistreated: No Fear: No Immunizations Up To Date Tetanus Booster (TDap): Unknown PED Vaccines UTD: Yes Date of Influenza Vaccine: Jan 17, 2018 Seasonal Allergies Seasonal Allergies: No Past Medical History Surgeries: Yes (, choley, STENT PLACED IN PANCREAS) Section, Gallbladder, Tubal Ligation Respiratory: No Cardiac: Yes (2 STENTS PLACED) Atrial Fibrillation, Hypertension Neurological: No Reproductive Disorders: No 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 Sexually Transmitted Disease: No HIV/AIDS: No Genitourinary: No Gastrointestinal: Yes Pancreatitis Musculoskeletal: No Endocrine: No HEENT: No Cancer: No Psychosocial: No Integumentary: No Blood Disorders: No Adverse Reaction/Blood Tranf: No Family Medical History Reviewed Nursing Family Hx Cancer 03 MOTHER Family history: Diabetes mellitus 03 FATHER No Pertinent Family Hx Physical Exam Vital Signs Vital Signs - First Documented 06/10/18 10:24 Temp 98.0 Pulse 63 Resp 15 B/P (MAP) 134/76 (95) Pulse Ox 100 Capillary Refill : Less Than 3 Seconds General Appearance: WD/WN, no apparent distress Cardiovascular: normal peripheral pulses, regular rate, rhythm, no edema, no gallop, no JVD, no murmur Respiratory: chest non-tender, lungs clear, normal breath sounds, no respiratory distress, no accessory muscle use Neurologic/Psychiatric: alert, normal mood/affect, oriented x 3 Skin: normal color, warm/dry, rash Skin Problem Location: neck, upper extremities, torso Progress/Results/Core Measures Results/Orders My Orders Orders - VERÓNICA VALDERRAMA Ekg Tracing (06/10/18 11:42) Vital Signs/I&O 06/10/18 06/10/18 10:24 12:15 Temp 98.0 98.0 Pulse 63 58 Resp 15 15 B/P (MAP) 134/76 (95) 137/78 (97) Pulse Ox 100 100 Blood Pressure Mean: 95 Progress Progress Note : Time: 11:52 Progress Note I have seen and evaluated the patient. I have reviewed her EKG and discussed the case with Dr. Segal insolvency consultant icu rn. He recommends stopping the new medications, not starting anything new at this time, and having her follow up with Dr. Murray next week. I have informed her of plan of care, plans for discharge, return precautions were given. Departure Impression Primary Impression: Medication reaction Disposition: 01 HOME, SELF-CARE Condition: Stable/Unchanged Departure-Patient Inst. Decision time for Depature: 11:52 Referrals: CHELITA LOMELI MD (PCP/Family) Primary Care Physician Patient Instructions: MEDICATION REACTION Add. Discharge Instructions: Stop taking your flecainide acetate and your lisinopril and call venus Murray' s office today for an appointment time. Continue all other medications. Return back to the emergency room for any worsening symptoms, shortness of breath, irregular heart rate, or any other concerns as needed. All discharge instructions reviewed with patient and/or family. Voiced understanding. VERÓNICA VALDERRAMA Jun 10, 2018 11:20
[2018-06-10 12:15] VITALS: BP 137/78
== END 2018-06-10 12:15 | disposition home or self-care (01) ==
LOC: EDUNIT# 09:58 → ER 09:59
DX: R21 Rash and other nonspecific skin eruption (principal); T46.2X5A Adverse effect of other antidysrhythmic drugs, initial encounter; T46.4X5A Adverse effect of angiotensin-converting-enzyme inhibitors, initial encounter; I48.91 Unspecified atrial fibrillation; I10 Essential (primary) hypertension; Z87.19 Personal history of other diseases of the digestive system; Z79.01 Long term (current) use of anticoagulants; Z95.5 Presence of coronary angioplasty implant and graft; Z90.49 Acquired absence of other specified parts of digestive tract; Z98.890 Other specified postprocedural states; Z98.51 Tubal ligation status

== ENCOUNTER 2018-07-24 14:17 | Emergency (ER) | payer OTHER ==
[~2018-07-24] VITALS: Ht 157.5 cm; Wt 64.4 kg
[~2018-07-24 14:17] MED LIST changes: +FLEC50TA PO; +LISI-556 PO
--- NOTE | 2018-07-24 14:37 | ED Hip Pain/Injury ---
General Chief Complaint: Hip/Pelvic Problems Stated Complaint: RT HIP PAIN Nursing Triage Note: pt started having right hip pain last night et now is having trouble walking. Pt states no trauma was involved. Source: patient Exam Limitations: no limitations History of Present Illness Date Seen by Provider: Jul 24, 2018 Time Seen by Provider: 14:35 Initial Comments To ER per private vehicle with reports of right hip pain. The pain is anterior midline right hip and proximal thigh lower abdomen. Pain is much worse with flexing the leg at the hip. She has trouble walking due to the pain. She can bear weight but she cannot flex the hip. This began last night, intolerable today. No known injury. No history of this. 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 [employer] Timing/Duration: just prior to arrival Severity: moderate Location: hip (R) Method of Injury: unknown Modifying Factors: Worse With Movement Associated Symptoms: denies symptoms Allergies and Home Medications Allergies Coded Allergies: No Known Drug Allergies (Unverified , 08/06/10) Home Medications Apixaban 5 Mg Tablet, 5 MG PO BID, (Reported) Ascorbic Acid 1,000 Mg Tablet, 1,000 MG PO DAILY, (Reported) Calcium Carbonate/Vitamin D3 1 Each Tablet, 2 TAB PO DAILY, (Reported) Cyanocobalamin (Vitamin B-12) 5,000 Mcg Tab.subl, 5,000 MCG SL DAILY, (Reported) Flecainide Acetate 50 Mg Tablet, 50 MG PO BID, (Reported) Lisinopril 5 Mg Tablet, 5 MG PO DAILY, (Reported) Metoprolol Succinate 25 Mg Tab.er.24h, 25 MG PO DAILY, (Reported) Multivitamin 1 Each Tablet, 1 TAB PO DAILY, (Reported) Nystatin/Triamcinolone 15 Gm Cr, TP TWICE WEEKLY PRN for ROSACEA, (Reported) Patient Home Medication List Home Medication List Reviewed: Yes Review of Systems Constitutional: see HPI EENTM: see HPI Respiratory: no symptoms reported Cardiovascular: no symptoms reported Genitourinary: no symptoms reported Musculoskeletal: see HPI, joint pain Skin: no symptoms reported Psychiatric/Neurological: No Symptoms Reported Past Blbbzqs-Bqoitv-Uzyncq Hx Patient Social History Recent Foreign Travel: No Contact w/Someone Who Travel: No Recent Infectious Disease Expo: No Recent Hopitalizations: Yes Immunizations Up To Date Tetanus Booster (TDap): Unknown PED Vaccines UTD: Yes Date of Influenza Vaccine: Jan 17, 2018 Seasonal Allergies Seasonal Allergies: No Past Medical History Surgeries: Yes (, choley, STENT PLACED IN PANCREAS) Section, Gallbladder, Tubal Ligation Respiratory: No Cardiac: Yes (2 STENTS PLACED) Atrial Fibrillation, Hypertension Neurological: No 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 0.0oz. 64.296417wg; 25.8 BMI Method:Stated General Appearance: No Apparent Distress, WD/WN HEENT: PERRL/EOMI, TMs Normal Neck: Full Range of Motion, Normal Inspection Respiratory: No Accessory Muscle Use, No Respiratory Distress Gastrointestinal: Soft, Other (right inguinal region is tender to palpation. There is no swelling or deformity.) Extremity: Normal Capillary Refill, Normal Inspection, Other (strong posterior tibial pulses 2+ on the right) Neurologic/Psychiatric: Alert, Oriented x3 Skin: Normal Color, Warm/Dry Progress/Results/Core Measures Results/Orders My Orders Orders - PIO PALACIOS APRN Ketorolac Injection (Toradol Injection) (07/24/18 14:45) Ct Pelvis Wo (07/24/18 14:34) Medications Given in ED Current Medications Medications Dose Ordered Sig/Juanito Route Start Time Stop Time Status Last Admin Dose Admin Ketorolac Tromethamine 60 mg ONCE ONCE IM 07/24/18 14:45 07/24/18 14:46 DC 07/24/18 14:43 60 MG Vital Signs/I&O 07/24/18 14:23 Temp 98.6 Pulse 64 Resp 18 B/P (MAP) Pulse Ox 100 O2 Delivery Room Air Departure Communication (Admissions) NAME: DIYA COHEN [facility] REC#: [id number] PT STATUS: REG ER : 1960 PHYSICIAN: PIO PALACIOS APRN ADMIT DATE: 07/24/18/ER Draft Date of Exam:07/24/18 CT PELVIS WO PROCEDURE: CT pelvis without contrast. TECHNIQUE: Multiple contiguous axial images were obtained through the pelvis without the use of intravenous contrast. Sagittal and coronal reformations were performed. Auto Exposure Controls were utilized during the CT exam to meet ALARA standards for radiation dose reduction. INDICATION: Hip pain. COMPARISON: CT abdomen and pelvis from 04/18/2017. FINDINGS: BONES: No fracture within the pelvis or proximal femurs. No features of sacral insufficiency fracture. Femoral heads remain spherical without features of osteonecrosis. SI joints and symphysis pubis are normal in alignment. SOFT TISSUES: The right distal iliopsoas tendon appears asymmetrically enlarged and may have a small amount of fluid within it suggestive of iliopsoas bursitis. No peritrochanteric fluid collection on either side. No appreciable hip effusion. No free pelvic fluid. Sigmoid colon diverticulosis without diverticulitis. IMPRESSION: 1. No fracture or stress fracture within the pelvis or proximal femurs. 2. Mild asymmetric enlargement of the right distal iliopsoas tendon could represent iliopsoas bursitis. Correlation for anterior right hip pain is suggested. Dictated on workstation # [id number] Dict: 07/24/18 1538 Trans: 07/24/18 1551 [id number] Interpreted by: EMMY GONZALEZ MD Electronically signed by: Impression Primary Impression: Iliopsoas bursitis of right hip Disposition: 01 HOME, SELF-CARE Condition: Stable Departure-Patient Inst. Decision time for Depature: 15:56 Referrals: CHELITA LOMELI MD (PCP/Family) Primary Care Physician Patient Instructions: Hip Bursitis (DC) Add. Discharge Instructions: 1. Medication as directed 2. Follow-up with your doctor later this week for recheck. Return to ER for worsening. All discharge instructions reviewed with patient and/or family. Voiced understanding. Scripts Pantoprazole Sodium (Protonix) 40 Mg Tablet.dr 40 MG PO DAILY, #10 TAB Prov: PIO PALACIOS APRN 07/24/18 Prednisone (Prednisone) 20 Mg Tab 40 MG PO DAILY, #8 TAB Prov: PIO PALACIOS APRN 07/24/18 Work/School Note: Work Release Form Date Seen in the Emergency Department: Jul 24, 2018 Return to Work: Jul 28, 2018 Images Torso/Trunk 1 - Tenderness PIO PALACIOS APRN Jul 24, 2018 14:37
[2018-07-24] MEDS ORDERED: KETOROLAC 60 MG/2 ML VIAL IM ONE (14:45)
--- NOTE | 2018-07-24 15:52 | Diagnostic Imaging Report ---
PROCEDURE: CT pelvis without contrast. TECHNIQUE: Multiple contiguous axial images were obtained through the pelvis without the use of intravenous contrast. Sagittal and coronal reformations were performed. Auto Exposure Controls were utilized during the CT exam to meet ALARA standards for radiation dose reduction. INDICATION: Hip pain. COMPARISON: CT abdomen and pelvis from 04/18/2017. FINDINGS: BONES: No fracture within the pelvis or proximal femurs. No features of sacral insufficiency fracture. Femoral heads remain spherical without features of osteonecrosis. SI joints and symphysis pubis are normal in alignment. SOFT TISSUES: The right distal iliopsoas tendon appears asymmetrically enlarged and may have a small amount of fluid within it suggestive of iliopsoas bursitis. No peritrochanteric fluid collection on either side. No appreciable hip effusion. No free pelvic fluid. Sigmoid colon diverticulosis without diverticulitis. IMPRESSION: 1. No fracture or stress fracture within the pelvis or proximal femurs. 2. Mild asymmetric enlargement of the right distal iliopsoas tendon could represent iliopsoas bursitis. Correlation for anterior right hip pain is suggested. Dictated by: Dictated on workstation # [id number]
[2018-07-24] MEDS ORDERED: PANT40TA2 PO (15:57)
[2018-07-24] MEDS ORDERED: PRD20T PO (15:57)
[2018-07-24 16:09] VITALS: BP 132/68
== END 2018-07-24 16:09 | disposition home or self-care (01) ==
LOC: EDUNIT# 14:17 → ER 14:19
DX: M70.71 Other bursitis of hip, right hip (principal); I48.91 Unspecified atrial fibrillation; I10 Essential (primary) hypertension; Z87.19 Personal history of other diseases of the digestive system; Z79.01 Long term (current) use of anticoagulants; Z90.49 Acquired absence of other specified parts of digestive tract; Z98.890 Other specified postprocedural states; Z98.51 Tubal ligation status; Z96.89 Presence of other specified functional implants
CPT/HCPCS: 72192

== ENCOUNTER 2019-03-03 03:31 | Emergency (ER) | payer OTHER ==
[~2019-03-03] VITALS: Ht 157 cm; Wt 66.8 kg
[~2019-03-03 03:31] MED LIST changes: +PANT40TA2 PO; +PRD20T PO
[2019-03-03] MEDS ORDERED: ASPIRIN 81 MG CHEW (CHILDREN'S ASA) PO ONE (03:45)
[2019-03-03 03:56] LABS: BASOPHILS % (AUTO) 0 % (0-10); EOSINOPHILS # (AUTO) 0.2 10^3/uL (0.0-0.3); EOSINOPHILS % (AUTO) 2 % (0-10); HEMATOCRIT 43 % (35-52); HEMOGLOBIN 14.5 G/DL (11.5-16.0); LYMPHOCYTES # (AUTO) 2.6 X 10^3 (1.0-4.0); LYMPHOCYTES % (AUTO) 29 % (12-44); MEAN CORPUSCULAR HEMOGLOBIN 29 PG (25-34); MEAN CORPUSCULAR HGB CONC 34 G/DL (32-36); MEAN CORPUSCULAR VOLUME 87 FL (80-99); MEAN PLATELET VOLUME 9.8 FL (7.4-10.4); MONOCYTES # (AUTO) 0.7 X 10^3 (0.0-1.0); MONOCYTES % (AUTO) 8 % (0-12); NEUTROPHILS # (AUTO) 5.4 X 10^3 (1.8-7.8); NEUTROPHILS % (AUTO) 61 % (42-75); PLATELET COUNT 256 10^3/uL (130-400); RED CELL DISTRIBUTION WIDTH 14.3 % (10.0-14.5); WHITE BLOOD COUNT 8.9 10^3/uL (4.3-11.0)
--- NOTE | 2019-03-03 03:57 | ED Cardiac General ---
History of Present Illness General Chief Complaint: General Problems/Pain Stated Complaint: A-FIB,BLOOD PRESSURE 206/118 Nursing Triage Note: Pt to RM 7 with c/o hypertension/heart dysrythmias that started approx 0300 this am. Pt states she has a Hx of Afib. Pt denies any chest pain but states she feels short of breath. Source: patient (VERY VAGUE AND SOMEWHAT DIFFICULT HISTORIAN), old records History of Present Illness Date Seen by Provider: Mar 03, 2019 Time Seen by Provider: 03:38 Initial Comments PT ARRIVES VIA POV FROM WORK AND [employer]AGGS STATES " I HAVE A FIB" --DIFFICULT TO OBTAIN ANY OTHER INFORMATION THAN THAT, INITIALLY ON ARRIVAL PT STATES HER HEART WAS "BEATING CRAZY" AT WORK AND STILL FEELS LIKE THAT--HR IS 70 AND IS IN NSR ON ARRIVAL HERE STATES NURSE AT WORK CHECKED HER BP AND PULSE--BP 206/118 AND PULSE 70 AT 0300 AND HER BROUGHT HER HERE STATES THAT HER CHEST ACHES, BUT IS UNABLE TO RATE PAIN C/O SHORTNESS OF BREATH, BUT NO PAIN WITH BREATHING NO SWEATS NO NAUSEA/VOMITING NO SWELLING IN LEGS/ FEET STATES SHE HAD JUST GOTTEN BACK FROM BREAK AND SAT DOWN WHEN HER SYMPTOMS BEGAN DENIES ANY SIGNIFICANT EXERTION OR STRENUOUS ACTIVITY PT IS ON ELIQUIS, AND DENIES ANY MISSED DOSES PT STATES SHE TAKES OTHER MEDICATIONS "FOR MY HEART AND BLOOD PRESSURE" BUT HAS NO IDEA WHAT THE MEDICATIONS ARE, AND DOES NOT RECOGNIZE ANY OF THE NAMES OF MEDICATIONS THAT I ASK HER ABOUT, BASED ON HER PREVIOUS VISITS STATES THAT SHE HAS NOT HAD ANY MEDICATION CHANGES IN THE LAST MONTH. PCP: DR. LOMELI HADOOP ARCHITECT: DR. GOVEA Allergies and Home Medications Allergies Coded Allergies: No Known Drug Allergies (Unverified , 08/06/10) Home Medications Apixaban 5 Mg Tablet, 5 MG PO BID, (Reported) Ascorbic Acid 1,000 Mg Tablet, 1,000 MG PO DAILY, (Reported) Calcium Carbonate/Vitamin D3 1 Each Tablet, 2 TAB PO DAILY, (Reported) Cyanocobalamin (Vitamin B-12) 5,000 Mcg Tab.subl, 5,000 MCG SL DAILY, (Reported) Flecainide Acetate 50 Mg Tablet, 50 MG PO BID, (Reported) Lisinopril 5 Mg Tablet, 5 MG PO DAILY, (Reported) Metoprolol Succinate 25 Mg Tab.er.24h, 25 MG PO DAILY, (Reported) Multivitamin 1 Each Tablet, 1 TAB PO DAILY, (Reported) Nystatin/Triamcinolone 15 Gm Cr, TP TWICE WEEKLY PRN for ROSACEA, (Reported) Pantoprazole Sodium 40 Mg Tablet.dr, 40 MG PO DAILY Prescribed by: PIO PALACIOS on 07/24/181556 Prednisone 20 Mg Tab, 40 MG PO DAILY Prescribed by: PIO PALACIOS on 07/24/181556 Patient Home Medication List Home Medication List Reviewed: Yes Review of Systems Review of Systems Constitutional: no symptoms reported; No diaphoresis, No dizziness EENTM: No Symptoms Reported Respiratory: See HPI, Shortness of Air Cardiovascular: See HPI, Chest Pain; Denies Edema; Irregular Heart Rate; Denies Lightheadedness; Palpitations; Denies Syncope Gastrointestinal: No Symptoms Reported; Denies Abdominal Pain, Denies Nausea, Denies Vomiting Genitourinary: No Symptoms Reported Musculoskeletal: no symptoms reported; No back pain Skin: no symptoms reported Psychiatric/Neurological: Anxiety; Denies Headache, Denies Numbness, Denies Paresthesia, Denies Tingling, Denies Weakness Endocrine: No Symptoms Reported Hematologic/Lymphatic: See HPI, Easy Bleeding, Easy Bruising Past Luxbbjn-Yegyha-Ncgoyw Hx Past Med/Social Hx: Reviewed and Corrections made Patient Social History Alcohol Use: Denies Use Recreational Drug Use: No Smoking Status: Never a Smoker Recent Foreign Travel: No Contact w/Someone Who Travel: No Recent Infectious Disease Expo: No Recent Hopitalizations: Yes Physical Abuse: No Sexual Abuse: No Mistreated: No Fear: No Immunizations Up To Date Tetanus Booster (TDap): Unknown PED Vaccines UTD: Yes Date of Influenza Vaccine: Jan 17, 2018 Seasonal Allergies Seasonal Allergies: No Past Medical History Surgeries: Yes (; MARIAM; ERCP WITH PANCREATIC STENT ) Section, Gallbladder, Tubal Ligation Respiratory: No Cardiac: Yes Atrial Fibrillation, Hypertension Neurological: No 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 Sexually Transmitted Disease: No HIV/AIDS: No Genitourinary: No Gastrointestinal: Yes (ERCP WITH PANCREATIC STENT; CHOLECYSTECTOMY) Pancreatitis Musculoskeletal: No Endocrine: No HEENT: No Cancer: No Psychosocial: No Integumentary: No Blood Disorders: No Adverse Reaction/Blood Tranf: No Family Medical History Cancer 03 MOTHER Family history: Diabetes mellitus 03 FATHER No Pertinent Family Hx Physical Exam Vital Signs Vital Signs - First Documented 03/03/19 03:38 Temp 37.1 Pulse 71 Resp 20 B/P (MAP) 177/89 (118) Pulse Ox 100 O2 Delivery Room Air Capillary Refill : Less Than 3 Seconds Height, Weight, BMI Height: 5'2.00" Weight: 142lbs. 0.0oz. 64.694328hi; 27.00 BMI Method:Stated General Appearance: No Apparent Distress, Anxious (EXTREMELY ANXIOUS ON A RRIVAL) Neck: Full Range of Motion, Normal Inspection, Non Tender, Supple; No Carotid Bruit Respiratory: Chest Non Tender, Normal Breath Sounds, No Accessory Muscle Use, No Respiratory Distress Cardiovascular: Regular Rate, Rhythm, No JVD, No Murmur, Normal Peripheral Pulses Gastrointestinal: Normal Bowel Sounds, No Organomegaly, No Pulsatile Mass, Non Tender, Soft Extremity: Normal Capillary Refill, Normal Range of Motion, Non Tender, No Calf Tenderness, Pedal Edema (TRACE BILATERALLY) Neurologic/Psychiatric: Alert, Oriented x3, No Motor/Sensory Deficits, medication reconciliation technician II- XII Norm as Tested Skin: Normal Color, Warm/Dry Progress/Results/Core Measures Results/Orders Lab Results Laboratory Tests Test 03/03/19 03:45 03/03/19 03:57 03/03/19 06:44 Range/Units White Blood Count 8.9 4.3-11.0 10^3/uL Red Blood Count 4.96 4.35-5.85 10^6/uL Hemoglobin 14.5 11.5-16.0 G/DL Hematocrit 43 35-52 % Mean Corpuscular Volume 87 80-99 FL Mean Corpuscular Hemoglobin 29 25-34 PG Mean Corpuscular Hemoglobin Concent 34 32-36 G/DL Red Cell Distribution Width 14.3 10.0-14.5 % Platelet Count 256 130-400 10^3/uL Mean Platelet Volume 9.8 7.4-10.4 FL Neutrophils (%) (Auto) 61 42-75 % Lymphocytes (%) (Auto) 29 12-44 % Monocytes (%) (Auto) 8 0-12 % Eosinophils (%) (Auto) 2 0-10 % Basophils (%) (Auto) 0 0-10 % Neutrophils # (Auto) 5.4 1.8-7.8 X 10^3 Lymphocytes # (Auto) 2.6 1.0-4.0 X 10^3 Monocytes # (Auto) 0.7 0.0-1.0 X 10^3 Eosinophils # (Auto) 0.2 0.0-0.3 10^3/uL Basophils # (Auto) 0.0 0.0-0.1 10^3/uL Prothrombin Time 13.5 12.2-14.7 SEC INR Comment 1.0 0.8-1.4 Activated Partial Thromboplast Time 30 24-35 SEC Sodium Level 141 135-145 MMOL/L Potassium Level 4.0 3.6-5.0 MMOL/L Chloride Level 105 98-107 MMOL/L Carbon Dioxide Level 23 21-32 MMOL/L Anion Gap 13 5-14 MMOL/L Blood Urea Nitrogen 21 H 7-18 MG/DL Creatinine 0.95 0.60-1.30 MG/DL Estimat Glomerular Filtration Rate > 60 BUN/Creatinine Ratio 22 Glucose Level 91 70-105 MG/DL Calcium Level 9.6 8.5-10.1 MG/DL Corrected Calcium 8.5-10.1 MG/DL Magnesium Level 1.8 1.6-2.4 MG/DL Total Bilirubin 0.2 0.1-1.0 MG/DL Aspartate Amino Transf (AST/SGOT) 20 5-34 U/L Alanine Aminotransferase (ALT/SGPT) 14 0-55 U/L Alkaline Phosphatase 60 40-136 U/L Total Creatine Kinase 99 29-168 U/L Creatine Kinase MB 1.8 <6.6 NG/ML Myoglobin 48.6 10.0-92.0 NG/ML Troponin I < 0.028 < 0.028 <0.028 NG/ML B-Type Natriuretic Peptide 68.9 <100.0 PG/ML Total Protein 7.3 6.4-8.2 GM/DL Albumin 4.6 H 3.2-4.5 GM/DL TSH [place] Testing 4.81 0.35-4.94 UIU/ML Urine Color YELLOW Urine Clarity SL CLOUDY Urine pH 5.5 5-9 Urine Specific [place] 1.020 1.016-1.022 Urine Protein NEGATIVE NEGATIVE Urine Glucose (UA) NEGATIVE NEGATIVE Urine Ketones NEGATIVE NEGATIVE Urine Nitrite NEGATIVE NEGATIVE Urine Bilirubin NEGATIVE NEGATIVE Urine Urobilinogen 0.2 < = 1.0 MG/DL Urine Leukocyte Esterase NEGATIVE NEGATIVE Urine RBC (Auto) TRACE-I NEGATIVE Urine RBC 2-5 H /HPF Urine WBC RARE /HPF Urine Squamous Epithelial Cells 0-2 /HPF Urine Crystals NONE /LPF Urine Bacteria NEGATIVE /HPF Urine Casts NONE /LPF Urine Mucus MODERATE H /LPF Urine Culture Indicated NO My Orders Orders - XI LEWIS DO Ed Iv/Invasive Line Start (03/03/19 03:38) Ekg Tracing (03/03/19 03:38) O2 (03/03/19 03:38) Monitor-Rhythm Ecg Trace Only (03/03/19 03:38) BNP (03/03/19 03:38) Cbc With Automated Diff (03/03/19 03:38) Comprehensive Metabolic Panel (03/03/19 03:38) Creatine Kinase (03/03/19 03:38) Creatine Kinase Mb (03/03/19 03:38) Magnesium (03/03/19 03:38) Protime With Inr (03/03/19 03:38) Partial Thromboplastin Time (03/03/19 03:38) Thyroid Analyzer (03/03/19 03:38) Myoglobin Serum (03/03/19 03:38) Troponin I (03/03/19 03:38) Chest 1 View, Ap/Pa Only (03/03/19 03:38) Aspirin Chewable Tablet (Baby Aspirin Ch (03/03/19 03:45) Ua Culture If Indicated (03/03/19 03:59) Ekg Tracing (03/03/19 06:28) Troponin I (03/03/19 06:28) Medications Given in ED Current Medications Medications Dose Ordered Sig/Juanito Route Start Time Stop Time Status Last Admin Dose Admin Aspirin 324 mg ONCE ONCE PO 03/03/19 03:45 03/03/19 03:46 DC 03/03/19 03:52 324 MG Vital Signs/I&O 03/03/19 03:38 Temp 37.1 Pulse 71 Resp 20 B/P (MAP) 177/89 (118) Pulse Ox 100 O2 Delivery Room Air Blood Pressure Mean: 118 POS Progress Progress Note : Progress Note BP QUICKLY LOWERED WITHOUT TREATMENT, PT CALMED DOWN. NO COMPLAINTS OF ANY KIND FOR REMAINDER OF ER STAY PT KEPT FOR 3 HOUR RULE OUT Initial ECG Impression Date: Mar 03, 2019 Initial ECG Impression Time: 03:51 Initial ECG Rate: 70 Initial ECG Rhythm: Normal Sinus Initial ECG Impression: Normal EKG : EKG Time: 06:50 Rate: 54 Rhythm: Normal Sinus Intervals: Normal ECG Comparisson: Unchanged ECG Impression: Normal Diagnostic Imaging Comments CXR--NO ACUTE PROCESS, PENDING RADIOLOGIST REVIEW Reviewed: Reviewed by Me Departure Communication (Admissions) [id number]--SPOKE WITH DR. GOVEA, ADVISES TO SEND PT HOME AND HE WILL SEE HER IN FOLLOW UP IN OFFICE NEXT WEEK PT IS AGREEABLE TO THIS PLAN Impression Primary Impression: Chest pain Additional Impressions: Palpitations Hypertensive urgency Disposition: 01 HOME, SELF-CARE Condition: Improved Departure-Patient Inst. Referrals: JUNIE GOVEA MD, FLOYD R MD (PCP/Family) Primary Care Physician Patient Instructions: Atrial Fibrillation (DC), Chest Pain (DC), High Blood Pressure Emergencies, Palpitations (DC) Add. Discharge Instructions: CONTINUE YOUR MEDICATIONS PRESCRIBED FOLLOW UP WITH DR. GOVEA NEXT WEEK RETURN TO ER IF SYMPTOMS RETURN All discharge instructions reviewed with patient and/or family. Voiced understanding. XI LEWIS DO Mar 03, 2019 03:57 POS
[2019-03-03 04:05] LABS: BILIRUBIN,URINE NEGATIVE (NEGATIVE); CLARITY,URINE SL CLOUDY; COLOR,URINE YELLOW; GLUCOSE, URINE (UA) NEGATIVE (NEGATIVE); KETONES,URINE NEGATIVE (NEGATIVE); LEUKOCYTE ESTERASE ,URINE NEGATIVE (NEGATIVE); NITRITE,URINE NEGATIVE (NEGATIVE); PH,URINE 5.5 (5-9); PROTEIN,URINE NEGATIVE (NEGATIVE)
[2019-03-03 04:07] LABS: PROTHROMBIN TIME PATIENT 13.5 SEC (12.2-14.7)
[2019-03-03 04:13] LABS: BACTERIA,URINE NEGATIVE /HPF; SQUAMOUS EPITHELIAL CELL,UR 0-2 /HPF; WBC,URINE RARE /HPF
--- NOTE | 2019-03-03 04:16 | NUR ---
Pt assisted with ambulation to bathroom at this time by Sagrario Jackman. Pt tolerated well.
[2019-03-03 04:17] LABS: ALANINE AMINOTRANSFERASE 14 U/L (0-55); ALBUMIN 4.6 GM/DL (3.2-4.5); ALKALINE PHOSPHATASE 60 U/L (40-136); BILIRUBIN,TOTAL 0.2 MG/DL (0.1-1.0); BUN/CREATININE RATIO 22; CALCIUM 9.6 MG/DL (8.5-10.1); CARBON DIOXIDE 23 MMOL/L (21-32); CHLORIDE 105 MMOL/L (98-107); CREATINE KINASE 99 U/L (29-168); CREATININE SERUM 0.95 MG/DL (0.60-1.30); GFR ESTIMATED > 60; GLUCOSE 91 MG/DL (70-105); MAGNESIUM 1.8 MG/DL (1.6-2.4); SODIUM 141 MMOL/L (135-145); TOTAL PROTEIN 7.3 GM/DL (6.4-8.2)
[2019-03-03 04:31] LABS: CREATINE KINASE MB 1.8 NG/ML (<6.6); TSH (THYROID ANALYZER) 4.81 UIU/ML (0.35-4.94)
--- NOTE | 2019-03-03 06:17 | Diagnostic Imaging Report ---
INDICATION: Heart palpitations. TECHNIQUE: Single view chest 4:09 AM. CORRELATION STUDY: 05/09/2018 FINDINGS: The heart size, mediastinal configuration and pulmonary vascularity are within normal limits. The lungs are clear with no consolidating infiltrate. There is no significant effusion or pneumothorax. IMPRESSION: 1. Negative for acute abnormality of the chest. Dictated by: Dictated on workstation # [id number]
[2019-03-03 07:33] VITALS: BP 162/84
== END 2019-03-03 07:40 | disposition home or self-care (01) ==
LOC: EDUNIT# 03:31 → ER 03:34
DX: I16.0 Hypertensive urgency (principal); I48.91 Unspecified atrial fibrillation; I10 Essential (primary) hypertension; Z79.01 Long term (current) use of anticoagulants; Z79.52 Long term (current) use of systemic steroids; Z90.49 Acquired absence of other specified parts of digestive tract; Z98.51 Tubal ligation status
CPT/HCPCS: 36415; 71045; 80053; 81000; 82550; 82553; 83735; 83874; 83880; 84443; 84484; 85025; 85610; 85730; 93005; 93041

== ENCOUNTER → 2019-06-07 | Outpatient (CLI) | payer OTHER ==
[~2019-06-07] MED LIST changes: -METO-387 PO; +MTP25TSR PO
[2019-06-07 09:30] LABS: BASOPHILS % (AUTO) 0 % (0-10); EOSINOPHILS # (AUTO) 0.1 10^3/uL (0.0-0.3); EOSINOPHILS % (AUTO) 2 % (0-10); HEMATOCRIT 44 % (35-52); HEMOGLOBIN 14.7 G/DL (11.5-16.0); LYMPHOCYTES # (AUTO) 1.6 X 10^3 (1.0-4.0); LYMPHOCYTES % (AUTO) 24 % (12-44); MEAN CORPUSCULAR HEMOGLOBIN 30 PG (25-34); MEAN CORPUSCULAR HGB CONC 34 G/DL (32-36); MEAN CORPUSCULAR VOLUME 88 FL (80-99); MEAN PLATELET VOLUME 9.6 FL (7.4-10.4); MONOCYTES # (AUTO) 0.4 X 10^3 (0.0-1.0); MONOCYTES % (AUTO) 7 % (0-12); NEUTROPHILS # (AUTO) 4.5 X 10^3 (1.8-7.8); NEUTROPHILS % (AUTO) 67 % (42-75); PLATELET COUNT 266 10^3/uL (130-400); WHITE BLOOD COUNT 6.7 10^3/uL (4.3-11.0)
[2019-06-07 09:57] LABS: ALANINE AMINOTRANSFERASE 14 U/L (0-55); ALBUMIN 4.2 GM/DL (3.2-4.5); ALKALINE PHOSPHATASE 59 U/L (40-136); BILIRUBIN,TOTAL 0.6 MG/DL (0.1-1.0); BUN/CREATININE RATIO 17; CALCIUM 9.5 MG/DL (8.5-10.1); CARBON DIOXIDE 25 MMOL/L (21-32); CHLORIDE 107 MMOL/L (98-107); CHOLESTEROL 186 MG/DL (< 200); CREATININE SERUM 0.93 MG/DL (0.60-1.30); GFR ESTIMATED > 60; GLUCOSE 99 MG/DL (70-105); HDL CHOLESTEROL 61 MG/DL (40-60); POTASSIUM 4.6 MMOL/L (3.6-5.0); SODIUM 140 MMOL/L (135-145); TOTAL PROTEIN 6.8 GM/DL (6.4-8.2); TRIGLYCERIDES 63 MG/DL (<150); VLDL CHOLESTEROL 13 MG/DL (5-40)
[2019-06-07 10:20] LABS: FREE T4 (FREE THYROXINE) 0.96 NG/DL (0.70-1.48)
== END ==
LOC: LAB 09:10
PROVIDERS: ATTEND Family Medicine
DX: I48.91 Unspecified atrial fibrillation (principal); R53.83 Other fatigue; M81.0 Age-related osteoporosis without current pathological fracture
CPT/HCPCS: 36415; 80053; 80061; 82306; 84439; 84443; 85025

== ENCOUNTER → 2019-06-28 | Outpatient (CLI) | payer OTHER | LOC: CARD 13:45 | PROVIDERS: ATTEND Internal Medicine Cardiovascular Disease | DX: I08.2 Rheumatic disorders of both aortic and tricuspid valves (principal); I48.91 Unspecified atrial fibrillation; I25.10 Atherosclerotic heart disease of native coronary artery without angina pectoris | CPT/HCPCS: 93306 ==

== ENCOUNTER → 2019-12-28 | Outpatient (CLI) | payer OTHER ==
[~2019-12-28] MED LIST changes: +ASCO100024 PO; -ASCO10006 PO; -CALC600T12 PO; +CLC600T PO
[2019-12-28 12:49] LABS: ALANINE AMINOTRANSFERASE 10 U/L (0-55); ALBUMIN 4.1 GM/DL (3.2-4.5); ALKALINE PHOSPHATASE 53 U/L (40-136); BILIRUBIN,TOTAL 0.6 MG/DL (0.1-1.0); BUN/CREATININE RATIO 17; CALCIUM 9.1 MG/DL (8.5-10.1); CARBON DIOXIDE 25 MMOL/L (21-32); CHLORIDE 107 MMOL/L (98-107); CHOLESTEROL 200 MG/DL (< 200); CREATININE SERUM 0.94 MG/DL (0.60-1.30); GFR ESTIMATED > 60; GLUCOSE 98 MG/DL (70-105); HDL CHOLESTEROL 55 MG/DL (40-60); POTASSIUM 4.8 MMOL/L (3.6-5.0); SODIUM 140 MMOL/L (135-145); TOTAL PROTEIN 6.9 GM/DL (6.4-8.2); TRIGLYCERIDES 139 MG/DL (<150); VLDL CHOLESTEROL 28 MG/DL (5-40)
== END ==
LOC: LAB 12:18
PROVIDERS: ATTEND Physician Assistant
DX: I48.0 Paroxysmal atrial fibrillation (principal); R07.9 Chest pain, unspecified; I25.10 Atherosclerotic heart disease of native coronary artery without angina pectoris; R00.2 Palpitations
CPT/HCPCS: 36415; 80053; 80061

== ENCOUNTER 2020-04-05 16:41 | Emergency (ER) | payer OTHER ==
[~2020-04-05] VITALS: Ht 157.5 cm; Wt 63.6 kg
[~2020-04-05 16:41] MED LIST changes: -AMIO200T4 PO; +AMIO200T6 PO; -CALC-6 PO; +CALC1TAB84 PO
[2020-04-05] MEDS ORDERED: LACTATED RINGERS 1,000 ML IV ONE (17:15)
[2020-04-05] MEDS ORDERED: PANTOPRAZOLE 40 MG (PROTONIX) VIAL IV ONE (17:15)
[2020-04-05 17:17] LABS: BASOPHILS % (AUTO) 0 % (0-10); EOSINOPHILS # (AUTO) 0.1 10^3/uL (0.0-0.3); EOSINOPHILS % (AUTO) 2 % (0-10); HEMATOCRIT 43 % (35-52); HEMOGLOBIN 14.1 g/dL (11.5-16.0); LYMPHOCYTES # (AUTO) 2.3 10^3/uL (1.0-4.0); LYMPHOCYTES % (AUTO) 36 % (12-44); MEAN CORPUSCULAR HEMOGLOBIN 30 pg (25-34); MEAN CORPUSCULAR HGB CONC 33 g/dL (32-36); MEAN CORPUSCULAR VOLUME 91 fL (80-99); MEAN PLATELET VOLUME 9.8 fL (9.0-12.2); MONOCYTES # (AUTO) 0.6 10^3/uL (0.0-1.0); MONOCYTES % (AUTO) 9 % (0-12); NEUTROPHILS # (AUTO) 3.3 10^3/uL (1.8-7.8); NEUTROPHILS % (AUTO) 52 % (42-75); PLATELET COUNT 257 10^3/uL (130-400); WHITE BLOOD COUNT 6.3 10^3/uL (4.3-11.0)
[2020-04-05 17:27] LABS: ALBUMIN 4.1 GM/DL (3.2-4.5); CHLORIDE 106 MMOL/L (98-107); POTASSIUM 3.9 MMOL/L (3.6-5.0); SODIUM 140 MMOL/L (135-145)
[2020-04-05 17:28] LABS: CALCIUM 8.9 MG/DL (8.5-10.1)
[2020-04-05 17:29] LABS: GLUCOSE 109 MG/DL (70-105)
[2020-04-05 17:30] LABS: TOTAL PROTEIN 6.5 GM/DL (6.4-8.2)
[2020-04-05] MEDS ORDERED: IOHEXOL 350 MG/ML 100 ML (OMNIPAQUE 350) VIAL IV ONE (17:30)
[2020-04-05] MEDS ORDERED: HOLD METFORMIN - RECEIVED CONTRAST 20 ML VIAL IV SCH (17:30)
[2020-04-05] MEDS ORDERED: NS 100 ML (IVPB) BAG IV ONE (17:30)
[2020-04-05 17:31] LABS: BILIRUBIN,TOTAL 0.4 MG/DL (0.1-1.0); CARBON DIOXIDE 26 MMOL/L (21-32)
[2020-04-05 17:33] LABS: ALKALINE PHOSPHATASE 54 U/L (40-136); CREATININE SERUM 0.92 MG/DL (0.60-1.30); GFR ESTIMATED > 60
[2020-04-05 17:34] LABS: BUN/CREATININE RATIO 17
[2020-04-05 17:36] LABS: ALANINE AMINOTRANSFERASE 14 U/L (0-55); LIPASE 27 U/L (8-78)
--- NOTE | 2020-04-05 17:47 | ED Abdominal Pain ---
General Chief Complaint: Abdominal/GI Problems Stated Complaint: NAUSEA Source of Information: Patient Exam Limitations: No Limitations (REINA ROSEN) History of Present Illness Date Seen by Provider: Apr 05, 2020 Time Seen by Provider: 16:57 Initial Comments Patient presents ER by private conveyance with chief complaint of epigastric abdominal discomfort nausea vomiting starting today. She is had pancreatitis in the past related to gallstones. Dr. Holloway put a stent in her pancreatic duct and told her if she had pancreatitis again he would have to do some kind of procedure about it. She is not having any fever chills cough shortness of breath diarrhea. She had a bowel movement earlier today which was normal. She ate about 2:00 in the afternoon and her pain started about 4:00. She took some Tums which did not help much with her pain. She says it was 7 out of 10 at first but now 3 out of 10 presently. She is not having any dysuria. Besides her gallbladder and stent she has not had any other surgeries on her abdomen. (REINA ROSEN) Allergies and Home Medications Allergies Coded Allergies: No Known Drug Allergies (Unverified , 08/06/10) Home Medications Apixaban 5 Mg Tablet, 5 MG PO BID, (Reported) Ascorbic Acid 1,000 Mg Tablet, 1,000 MG PO DAILY, (Reported) Calcium Carbonate/Vitamin D3 1 Each Tablet, 2 TAB PO DAILY, (Reported) Cyanocobalamin (Vitamin B-12) 5,000 Mcg Tab.subl, 5,000 MCG SL DAILY, (Reported) Flecainide Acetate 50 Mg Tablet, 50 MG PO BID, (Reported) Lisinopril 5 Mg Tablet, 5 MG PO DAILY, (Reported) Metoprolol Succinate 25 Mg Tab.er.24h, 25 MG PO DAILY, (Reported) Multivitamin 1 Each Tablet, 1 TAB PO DAILY, (Reported) Nystatin/Triamcinolone 15 Gm Cr, TP TWICE WEEKLY PRN for ROSACEA, (Reported) Ondansetron 4 Mg Tab.rapdis, 4 MG PO Q6H PRN for NAUSEA/VOMITING Prescribed by: PIO WALTER on 04/05/201821 Pantoprazole Sodium 40 Mg Tablet., 40 MG PO DAILY Prescribed by: PIO WALTER on 07/24/18 1557 Pantoprazole Sodium 40 Mg Tablet., 40 MG PO DAILY Prescribed by: PIO WALTER on 04/05/20 1822 Prednisone 20 Mg Tab, 40 MG PO DAILY Prescribed by: PIO WALTER on 07/24/18 3107 Patient Home Medication List Home Medication List Reviewed: Yes (REINA ROSEN) Review of Systems Review of Systems Constitutional: No chills, No diaphoresis, No fever, No malaise EENTM: No Blurred Vision, No Double Vision Respiratory: Denies Cough, Denies Shortness of Air Cardiovascular: Denies Chest Pain, Denies Lightheadedness Gastrointestinal: Denies Constipated, Denies Diarrhea; Nausea; Denies Vomiting Genitourinary: Denies Burning, Denies Discharge Musculoskeletal: No back pain, No joint pain (REINA ROSEN) All Other Systems Reviewed Negative Unless Noted: Yes (REINA ROSEN) Past Jkiotnl-Gkfkdm-Gkmwyk Hx Patient Social History Alcohol Use: Denies Use Recreational Drug Use: No Smoking Status: Never a Smoker Recent Foreign Travel: No Contact w/Someone Who Travel: No Recent Hopitalizations: Yes (REINA ROSEN) Immunizations Up To Date Tetanus Booster (TDap): Unknown PED Vaccines UTD: Yes Date of Influenza Vaccine: Jan 17, 2018 (REINA ROSEN) Seasonal Allergies Seasonal Allergies: No (REINA ROSEN) Past Medical History Surgeries: Yes (; MARIAM; ERCP WITH PANCREATIC STENT ) Section, Gallbladder, Tubal Ligation Respiratory: No Cardiac: Yes Atrial Fibrillation, Hypertension Neurological: No Reproductive Disorders: No [employer] History: Menopausal Sexually Transmitted Disease: No HIV/AIDS: No Genitourinary: No Gastrointestinal: Yes (ERCP WITH PANCREATIC STENT; CHOLECYSTECTOMY) Pancreatitis Musculoskeletal: No Endocrine: No HEENT: No Cancer: No Psychosocial: No Integumentary: No Blood Disorders: No Adverse Reaction/Blood Tranf: No (REINA ROSEN) Family Medical History Cancer 03 MOTHER Family history: Diabetes mellitus 03 FATHER No Pertinent Family Hx (REINA ROSEN) Physical Exam Vital Signs Vital Signs - First Documented 04/05/20 16:50 Temp 36.0 Pulse 74 Resp 18 B/P (MAP) 173/89 (117) Pulse Ox 100 O2 Delivery Room Air (PIO WALTER APRN) Vital Signs Capillary Refill : (REINA ROSEN) Height/Weight/BMI Height: 5'2.00" Weight: 142lbs. 0.0oz. 64.472482ly; 27.00 BMI Method:Stated General Appearance: WD/WN, no apparent distress HEENT: PERRL/EOMI, pharynx normal Neck: full range of motion, supple, normal inspection Respiratory: lungs clear, normal breath sounds, no respiratory distress, no accessory muscle use Cardiovascular: normal peripheral pulses, regular rate, rhythm Peripheral Pulses: 2+ Radial Pulses (R), 2+ Radial Pulses (L) Gastrointestinal: normal bowel sounds, soft, tenderness (Mild tenderness epigastric region) Extremities: normal range of motion, non-tender, normal inspection, normal ca pillary refill Neurologic/Psychiatric: alert, normal mood/affect, oriented x 3 Skin: normal color, warm/dry (REINA ROSEN J) Progress/Results/Core Measures Results/Orders Lab Results Laboratory Tests Test 04/05/20 17:00 04/05/20 17:45 Range/Units White Blood Count 6.3 4.3-11.0 10^3/uL Red Blood Count 4.74 3.80-5.11 10^6/uL Hemoglobin 14.1 11.5-16.0 g/dL Hematocrit 43 35-52 % Mean Corpuscular Volume 91 80-99 fL Mean Corpuscular Hemoglobin 30 25-34 pg Mean Corpuscular Hemoglobin Concent 33 32-36 g/dL Red Cell Distribution Width 13.4 10.0-14.5 % Platelet Count 257 130-400 10^3/uL Mean Platelet Volume 9.8 9.0-12.2 fL Immature Granulocyte % (Auto) 0 % Neutrophils (%) (Auto) 52 42-75 % Lymphocytes (%) (Auto) 36 12-44 % Monocytes (%) (Auto) 9 0-12 % Eosinophils (%) (Auto) 2 0-10 % Basophils (%) (Auto) 0 0-10 % Neutrophils # (Auto) 3.3 1.8-7.8 10^3/uL Lymphocytes # (Auto) 2.3 1.0-4.0 10^3/uL Monocytes # (Auto) 0.6 0.0-1.0 10^3/uL Eosinophils # (Auto) 0.1 0.0-0.3 10^3/uL Basophils # (Auto) 0.0 0.0-0.1 10^3/uL Immature Granulocyte # (Auto) 0.0 0.0-0.1 10^3/uL Sodium Level 140 135-145 MMOL/L Potassium Level 3.9 3.6-5.0 MMOL/L Chloride Level 106 98-107 MMOL/L Carbon Dioxide Level 26 21-32 MMOL/L Anion Gap 8 5-14 MMOL/L Blood Urea Nitrogen 16 7-18 MG/DL Creatinine 0.92 0.60-1.30 MG/DL Estimat Glomerular Filtration Rate > 60 BUN/Creatinine Ratio 17 Glucose Level 109 H 70-105 MG/DL Calcium Level 8.9 8.5-10.1 MG/DL Corrected Calcium 8.8 8.5-10.1 MG/DL Total Bilirubin 0.4 0.1-1.0 MG/DL Aspartate Amino Transf (AST/SGOT) 18 5-34 U/L Alanine Aminotransferase (ALT/SGPT) 14 0-55 U/L Alkaline Phosphatase 54 40-136 U/L C-Reactive Protein High Sensitivity 0.06 0.00-0.50 MG/DL Total Protein 6.5 6.4-8.2 GM/DL Albumin 4.1 3.2-4.5 GM/DL Lipase 27 8-78 U/L Urine Color YELLOW Urine Clarity CLEAR Urine pH 7.5 5-9 Urine Specific [place] 1.010 L 1.016-1.022 Urine Protein NEGATIVE NEGATIVE Urine Glucose (UA) NEGATIVE NEGATIVE Urine Ketones NEGATIVE NEGATIVE Urine Nitrite NEGATIVE NEGATIVE Urine Bilirubin NEGATIVE NEGATIVE Urine Urobilinogen 0.2 < = 1.0 MG/DL Urine Leukocyte Esterase NEGATIVE NEGATIVE Urine RBC (Auto) NEGATIVE NEGATIVE Urine RBC RARE /HPF Urine WBC RARE /HPF Urine Squamous Epithelial Cells 0-2 /HPF Urine Crystals NONE /LPF Urine Bacteria TRACE /HPF Urine Casts NONE /LPF Urine Mucus NEGATIVE /LPF Urine Culture Indicated NO (PIO WALTER APRN) Medications Given in ED Current Medications Medications Dose Ordered Sig/Juanito Route Start Time Stop Time Status Last Admin Dose Admin Iohexol 100 ml ONCE ONCE IV 04/05/20 17:30 04/05/20 17:33 DC 04/05/20 17:55 80 ML Lactated Ringer's 1,000 ml @ 0 mls/hr Q0M ONCE IV 04/05/20 17:15 04/05/20 17:16 DC 04/05/20 17:16 0 MLS/HR Pantoprazole 40 mg ONCE ONCE IV 04/05/20 17:15 04/05/20 17:16 DC 04/05/20 17:16 40 MG Sodium Chloride 100 ml ONCE ONCE IV 04/05/20 17:30 04/05/20 17:33 DC 04/05/20 17:56 80 ML (PIO WALTER APRN) Vital Signs/I&O 04/05/20 16:50 Temp 36.0 Pulse 74 Resp 18 B/P (MAP) 173/89 (117) Pulse Ox 100 O2 Delivery Room Air (PIO WALTER APRN) Progress Progress Note : Time: 17:57 Progress Note Patient's labs are unremarkable. Urine is pending. CT has been ordered to e valuate ducts and pancreas. Suspect this represents GERD or gastritis. We gave her some pantoprazole and a liter of fluids but the patient's pain had already passed after she took Tums at home by the time she arrived here it was down to a 3 out of 10. Care of the patient was passed over to the Pio Walter at shift change. Pending imaging and urine results. (REINA ROSEN) Diagnostic Imaging Diagonstic Imaging: CT (With IV contrast) Plain Films/CT/US/NM/MRI: abdomen, pelvis Reviewed: Reviewed by Me (REINA ROSEN) Departure Communication (Admissions) 1821-feeling better at this time without pain or nausea. We will discharge to home with treatment for gastritis on a proton pump inhibitor and some Zofran as needed. (PIO WALTER APRN) Impression Primary Impression: Abdominal pain Additional Impression: Gastritis Disposition: 01 HOME, SELF-CARE Condition: Stable Departure-Patient Inst. Decision time for Depature: 18:21 (PIO WALTER APRN) Referrals: JAROD VILLARREAL DO (PCP/Family) Primary Care Physician Patient Instructions: Gastritis Add. Discharge Instructions: 1. Return to ER for any concerns 2. Follow-up with your doctor next week 3. All discharge instructions reviewed with patient and/or family. Voiced understanding. Scripts Ondansetron (Ondansetron Odt) 4 Mg Tab.rapdis 4 MG PO Q6H PRN for NAUSEA/VOMITING, #8 TAB 0 Refills Prov: PIO WALTER APRN 04/05/20 Pantoprazole Sodium (Protonix) 40 Mg Tablet. 40 MG PO DAILY, #20 TAB Prov: PIO WALTER APRN 04/05/20 REINA ROSEN Apr 05, 2020 17:47 PIO WALTER APRN Apr 05, 2020 18:22
[2020-04-05 17:50] LABS: BILIRUBIN,URINE NEGATIVE (NEGATIVE); CLARITY,URINE CLEAR; COLOR,URINE YELLOW; GLUCOSE, URINE (UA) NEGATIVE (NEGATIVE); KETONES,URINE NEGATIVE (NEGATIVE); LEUKOCYTE ESTERASE ,URINE NEGATIVE (NEGATIVE); NITRITE,URINE NEGATIVE (NEGATIVE); PH,URINE 7.5 (5-9); PROTEIN,URINE NEGATIVE (NEGATIVE)
[2020-04-05 17:57] LABS: BACTERIA,URINE TRACE /HPF; RBC,URINE RARE /HPF; SQUAMOUS EPITHELIAL CELL,UR 0-2 /HPF; WBC,URINE RARE /HPF
--- NOTE | 2020-04-05 18:14 | Diagnostic Imaging Report ---
PROCEDURE: CT abdomen and pelvis with contrast. TECHNIQUE: Multiple contiguous axial images were obtained through the abdomen and pelvis after administration of intravenous contrast. Auto Exposure Controls were utilized during the CT exam to meet ALARA standards for radiation dose reduction. All CT scans use one or more of the following dose optimizing techniques: automated exposure control, MA and/or KvP adjustment based on patient size and exam type or iterative reconstruction. INDICATION: Epigastric pain and nausea. FINDINGS: The heart size is normal. The lung bases are clear. The liver is normal in size and without focal lesions. Gallbladder is surgically absent. There is no biliary ductal dilatation. Spleen is normal. The pancreas and adrenal glands are unremarkable. The kidneys are normal in appearance. The aorta is nonaneurysmal. The bowel gas pattern is nonspecific. The appendix is normal. There is no free air. There is no ascites. There is no focal inflammatory change. There does appear to be mild diverticular disease without evidence of diverticulitis. Uterus is normal. Bladder is normal. There are mild degenerative changes in the spine. IMPRESSION: 1. Mild diverticular disease without evidence of diverticulitis. 2. No other acute abnormality in the abdomen or pelvis. Dictated by: Dictated on workstation # [id number]
[2020-04-05] MEDS ORDERED: PANT40TA2 PO (18:22)
[2020-04-05] MEDS ORDERED: ONDA4TAB11 PO (18:22)
[2020-04-05 18:33] VITALS: BP 145/76
== END 2020-04-05 18:33 | disposition home or self-care (01) ==
LOC: EDUNIT# 16:41 → ER 16:44
DX: R10.13 Epigastric pain (principal); K29.70 Gastritis, unspecified, without bleeding; I10 Essential (primary) hypertension; I48.91 Unspecified atrial fibrillation; Z80.9 Family history of malignant neoplasm, unspecified; Z83.3 Family history of diabetes mellitus; Z79.01 Long term (current) use of anticoagulants; Z79.52 Long term (current) use of systemic steroids
CPT/HCPCS: 36415; 74177; 80053; 81000; 83690; 85025; 86141; 96361; 96374

== ENCOUNTER → 2020-06-21 | Outpatient (CLI) | payer OTHER ==
[~2020-06-21] MED LIST changes: -LISI-556 PO; +LISI-729 PO; +ONDA4TAB11 PO
[2020-06-21 13:11] LABS: ALBUMIN 4.3 GM/DL (3.2-4.5); BILIRUBIN,TOTAL 0.5 MG/DL (0.1-1.0); CALCIUM 9.6 MG/DL (8.5-10.1); CREATININE SERUM 0.95 MG/DL (0.60-1.30)
== END ==
LOC: LAB 12:09
PROVIDERS: ATTEND Internal Medicine Cardiovascular Disease
DX: E78.2 Mixed hyperlipidemia (principal)
CPT/HCPCS: 36415; 80053; 80061

== ENCOUNTER → 2020-07-02 | Outpatient (CLI) | payer OTHER | LOC: CARD 14:13 | PROVIDERS: ATTEND Internal Medicine Cardiovascular Disease | DX: I10 Essential (primary) hypertension (principal); I08.0 Rheumatic disorders of both mitral and aortic valves | CPT/HCPCS: 93306 ==

== ENCOUNTER → 2020-07-24 | Outpatient (CLI) | payer OTHER ==
[~2020-07-24] VITALS: Ht 157 cm; Wt 64.0 kg
[~2020-07-24] MED LIST changes: +CATHETER FLUSH 10 ML SYR IV PRN; +REGADENOSON 0.4 MG/5 ML SYR (LEXISCAN) IV ONE
[2020-07-24 08:55] VITALS: BP 127/77
[2020-07-24 09:18] VITALS: BP 142/82
--- NOTE | 2020-07-24 17:30 | Cardiology Stress Test Report ---
Stress Test Report Date of Procedure/Referring: Date of Procedure: Jul 24, 2020 PCP Junie Murray MD Admitting Physician Radha Eldridge DO Indications: Palpitation Baseline Heart Rate: 49 Baseline Blood Pressure: Blood Pressure Systolic: 142 Blood Pressure Diastolic: 82 Baseline Vitals Vital Signs Date Time Temp Pulse Resp B/P (MAP) Pulse Ox O2 Delivery O2 Flow Rate FiO2 07/24/20 08:55 58 18 127/77 (94) 99 Room Air Baseline EKG: Baseline EKG: NSR Summary After explaining the procedure to the patient, she signed a consent and then brought to the stress nuclear laboratory. Patient received 0.4 mg Lexiscan for stress test, ECG, heart rate and blood pressure were monitored continuously. Resting and stress dose of radio tracer were injected, imaging was acquired and reviewed in short axis, horizontal long axis and vertical long axis views. TID: 1 SSS: 0 SDS: 0 EF: 74 1. Patient was able to exercise only for 6-minute 30 seconds on standard Deni protocol, 7.7 METS achieving 64% of maximal expected heart rate. Test was converted to Lexiscan Myoview stress test 2. Patient tolerated Lexiscan well 3. No ischemia or infarction on SPECT images 4. Normal left ventricular size, EF 74% JUNIE MURRAY MD Jul 24, 2020 17:30
== END ==
LOC: CARD 07:30
PROVIDERS: ATTEND Internal Medicine Cardiovascular Disease
DX: R00.2 Palpitations (principal); I10 Essential (primary) hypertension
CPT/HCPCS: 78452; 93017; A9502

== ENCOUNTER 2021-05-02 09:14 | Outpatient (CLI) | payer OTHER ==
[~2021-05-02] VITALS: Ht 157.5 cm; Wt 64.0 kg
[~2021-05-02 09:14] MED LIST changes: -AMIO200T6 PO; +AMIO200T65 PO; +CALC600T91 PO; -CATHETER FLUSH 10 ML SYR IV PRN; -CLC600T PO; -LISI-729 PO; +LISI5TAB20 PO; -REGADENOSON 0.4 MG/5 ML SYR (LEXISCAN) IV ONE
[2021-05-02 09:31] VITALS: BP 135/79
[2021-05-02] MEDS ORDERED: ACETAMINOPHEN 500 MG TAB (TYLENOL) PO PRN (09:45)
[2021-05-02] MEDS ORDERED: diphenhydrAMINE 50 MG/ML INJ (BENADRYL) IV PRN (09:45)
[2021-05-02] MEDS ORDERED: EPINEPHrine INJECTION 1 MG/ML AMP IM PRN (09:45)
[2021-05-02] MEDS ORDERED: CASIRIVIMAB/IMDEVIMAB 1,200 MG in NS (IVPB) 50 ML IV ONE (09:45)
[2021-05-02] MEDS ORDERED: ONDANSETRON 4 MG/2 ML (SDV) Z0FRAN IV PRN (09:45)
[2021-05-02 10:49] VITALS: BP 111/66
== END 2021-05-02 10:48 ==
LOC: INFUSION 09:14
PROVIDERS: ATTEND Family Medicine
DX: U07.1 COVID-19 (principal)

== ENCOUNTER → 2021-06-25 | Outpatient (CLI) | payer OTHER ==
[2021-06-25 10:14] LABS: POTASSIUM 4.8 MMOL/L (3.6-5.0)
[2021-06-25 10:15] LABS: CALCIUM 9.5 MG/DL (8.5-10.1)
[2021-06-25 10:16] LABS: TOTAL PROTEIN 6.2 GM/DL (6.4-8.2)
[2021-06-25 10:18] LABS: BILIRUBIN,TOTAL 0.6 MG/DL (0.1-1.0)
[2021-06-25 10:20] LABS: CREATININE SERUM 0.84 MG/DL (0.60-1.30)
== END ==
LOC: LAB 09:28
PROVIDERS: ATTEND Internal Medicine Cardiovascular Disease
DX: I25.10 Atherosclerotic heart disease of native coronary artery without angina pectoris (principal); E78.2 Mixed hyperlipidemia; I10 Essential (primary) hypertension
CPT/HCPCS: 36415; 80053; 80061

== ENCOUNTER → 2022-12-22 | Outpatient (CLI) | payer OTHER ==
[~2022-12-22] MED LIST changes: -HYDR15CR36 TP; +HYDR15CR40 TP; -NSTR15C TP; +NYST15CR36 TP
[2022-12-22 08:59] LABS: BASOPHILS % (AUTO) 1 % (0-10); EOSINOPHILS # (AUTO) 0.2 10^3/uL (0.0-0.3); EOSINOPHILS % (AUTO) 4 % (0-10); HEMATOCRIT 42 % (35-52); HEMOGLOBIN 14.2 g/dL (11.5-16.0); LYMPHOCYTES # (AUTO) 1.7 10^3/uL (1.0-4.0); LYMPHOCYTES % (AUTO) 25 % (12-44); MEAN CORPUSCULAR HEMOGLOBIN 30 pg (25-34); MEAN CORPUSCULAR HGB CONC 34 g/dL (32-36); MEAN CORPUSCULAR VOLUME 88 fL (80-99); MEAN PLATELET VOLUME 9.6 fL (9.0-12.2); MONOCYTES # (AUTO) 0.5 10^3/uL (0.0-1.0); MONOCYTES % (AUTO) 8 % (0-12); NEUTROPHILS # (AUTO) 4.4 10^3/uL (1.8-7.8); NEUTROPHILS % (AUTO) 64 % (42-75); PLATELET COUNT 254 10^3/uL (130-400); WHITE BLOOD COUNT 6.9 10^3/uL (4.3-11.0)
[2022-12-22 09:17] LABS: ALBUMIN 4.2 GM/DL (3.2-4.5); BILIRUBIN,TOTAL 0.5 MG/DL (0.1-1.0); CALCIUM 9.1 MG/DL (8.5-10.1); CREATININE SERUM 0.93 MG/DL (0.60-1.30); POTASSIUM 4.4 MMOL/L (3.6-5.0); TOTAL PROTEIN 6.9 GM/DL (6.4-8.2)
[2022-12-22 09:38] LABS: FREE T4 (FREE THYROXINE) 0.98 NG/DL (0.70-1.48)
== END ==
LOC: LAB 08:32
PROVIDERS: ATTEND Family Medicine
DX: Z00.00 Encounter for general adult medical examination without abnormal findings (principal); R53.83 Other fatigue
CPT/HCPCS: 36415; 80053; 80061; 84439; 85025

== ENCOUNTER → 2023-01-30 | Outpatient (CLI) | payer OTHER ==
[2023-01-30 16:26] LABS: ALBUMIN 4.2 GM/DL (3.2-4.5); POTASSIUM 4.7 MMOL/L (3.6-5.0)
[2023-01-30 16:27] LABS: CALCIUM 9.5 MG/DL (8.5-10.1)
[2023-01-30 16:30] LABS: BILIRUBIN,TOTAL 0.7 MG/DL (0.1-1.0)
[2023-01-30 16:32] LABS: CREATININE SERUM 0.94 MG/DL (0.60-1.30)
== END ==
LOC: LAB 15:49
PROVIDERS: ATTEND Internal Medicine Cardiovascular Disease
DX: I25.10 Atherosclerotic heart disease of native coronary artery without angina pectoris (principal); I48.0 Paroxysmal atrial fibrillation; I10 Essential (primary) hypertension; R07.9 Chest pain, unspecified; E78.2 Mixed hyperlipidemia
CPT/HCPCS: 36415; 80053; 80061

== ENCOUNTER → 2023-02-05 | Outpatient (CLI) | payer BC, OTHER | LOC: CARD 08:58 | PROVIDERS: ATTEND Internal Medicine Cardiovascular Disease | DX: R07.9 Chest pain, unspecified (principal); I35.1 Nonrheumatic aortic (valve) insufficiency | CPT/HCPCS: 93306 ==

== ENCOUNTER → 2023-02-08 | Outpatient (CLI) | payer BC, OTHER ==
[~2023-02-08] VITALS: Ht 157 cm; Wt 63.0 kg
[~2023-02-08] MED LIST changes: +CATHETER FLUSH 10 ML SYR IVP PRN; +LIDOCAINE 1% INJ 20 ML VIAL ONE; +REGADENOSON 0.4 MG/5 ML SYR IV ONE
[2023-02-08 08:58] VITALS: BP 154/73
--- NOTE | 2023-02-08 11:11 | Cardiology Stress Test Report ---
Stress Test Report Date of Procedure/Referring: Date of Procedure: Feb 08, 2023 PCP Radha Eldridge DO Admitting Physician Admitting Physician: Attending Physician: Arpita Murray MD Baseline Heart Rate: 59 Baseline Blood Pressure: Blood Pressure Systolic: 154 Blood Pressure Diastolic: 73 Baseline Vitals Vital Signs Date Time Temp Pulse Resp B/P (MAP) Pulse Ox O2 Delivery O2 Flow Rate FiO2 02/08/23 08:58 59 154/73 (100) Baseline EKG: Baseline EKG: NSR Summary After explaining the procedure to the patient, she signed a consent and then brought to the stress nuclear laboratory. Patient received 0.4 mg Lexiscan for stress test, ECG, heart rate and blood pressure were monitored continuously. Resting and stress dose of radio tracer were injected, imaging was acquired and reviewed in short axis, horizontal long axis and vertical long axis views. TID: 0.96 SSS: 1 SDS: 1 EF: 71 Patient tolerated Lexiscan well Occasional APCs noted during test No significant ischemia or infarction on SPECT images Normal left ventricular size, ejection fraction 71% Copy Copies To 1: RADHA ELDRIDGE BASHAR J MD Feb 08, 2023 11:11
--- NOTE | 2023-02-08 11:12 | Implantation of Loop Monitor ---
Implant of Loop Monitior IMPLANTATION OF LOOP MONITOR REPORT DATE OF PROCEDURE: 02/08/23 PREOP DIAGNOSIS: Paroxysmal atrial fibrillation, palpitation POSTOP DIAGNOSIS: Paroxysmal atrial fibrillation, palpitation PROCEDURE DETAILS: The patient is a 62 female with history of paroxysmal atrial fibrillation requiring long-term surveillance. Therefore implantable loop recorder was discussed and agreed with the patient. Informed consent was taken. All risks and complications were discussed at length. The patient was draped and prepped in the usual sterile fashion. Local anesthesia was lidocaine, which was given in the substernal area close to the 4th intercostal space. Loop monitor [employer] with serial number [id number] was implanted according to the protocol. Steri- Strips were placed at the end of the procedure. There were no complications and the patient tolerated the procedure well. ANESTHESIA: Local anesthesia with lidocaine. COMPLICATIONS: None CONTRAST/FLUOROSCOPY: None CONCLUSION: Successful implantation of loop monitor with no complications FINAL DIAGNOSIS: Paroxysmal atrial fibrillation Palpitation Chest pain JUNIE GOVEA MD Feb 08, 2023 11:12
== END ==
LOC: CARD 06:43
PROVIDERS: ATTEND Internal Medicine Cardiovascular Disease
DX: I48.91 Unspecified atrial fibrillation (principal)
CPT/HCPCS: 33285; 78452; 93017; A9502; C1764